=== PATIENT | female | born 1975 | race Caucasian/White ===

== ENCOUNTER 2016-08-26 12:57 | Inpatient (IN) | payer OTHER ==
[2016-08-26] VITALS (9 sets, daily range): BP systolic 105–137; BP diastolic 73–98; PULSE 70–118; RESP 18–23; O2SAT 98–100
[~2016-08-26] VITALS: Ht 170.2 cm; Wt 61.4 kg
[~2016-08-26 12:57] MED LIST: Succinylcholine Chloride 20 mg/mL 5 mL Inj ONE
--- NOTE | 2016-08-26 12:58 | ED.REPORT ---
HPI-Altered Mental Status Date of Service Aug 26, 2016 ED Provider: Dr. Moncada The patient is a 41 year old female with an unknown medical history who was brought to the emergency department by EMS. The patient was picked up by a taxi and the straddle truck driver became concerned that she was not responding. The local company intermodal truck driver pulled up to the police station who called EMS. Medics pulled the patient out of the car and placed her on the gurney. They administered 0.5 Narcan with no change. She had minimal responses to deep painful stimuli. She maintained her airway en route to the emergency department. She has a hospital band on her wrist from [place]. Nursing Notes Stated Complaint: DECREASED LOC Nursing Notes Reviewed: Yes General Time Seen by MD: 12:58 Chief Complaint Unresponsive Hx Obtained From: EMS Unable to Obtain Hx: Patient condition Arrived By: Ambulance Sudden in Onset?: Yes Onset Occurred: Just prior to arrival Symptom Duration: Since onset Progression since Onset: Constant Risk Factors Tory Coma Score > Age 5 Eye Opening: Open to pain (2) Verbal Response: No response (1) Motor Response: No response (1) Tory Coma Score: 4 Past Medical History Unable to Obtain History Past medical history, Past surgical history, Family history, Smoking history, Social history, Occupation, Ambulatory status Review of Systems Unable to Obtain ROS Patient condition Physical Exam Initial Vital Signs Vital Signs (First) Date Time Temp Pulse Resp B/P Pulse Ox O2 Delivery O2 Flow Rate FiO2 08/26/16 13:10 36.6 103 20 121/86 98 Simple Mask Non-Rebreather 08/26/16 13:53 Initial VS: Reviewed ENT: Mucous membranes moist, Conjunctiva normal, No scleral icterus Abdomen / GI: Soft, No distention Lymphatic: No lymphadenopathy Extremities: Vascular intact, Neuro intact, No swelling, No tenderness Skin: Warm, Dry, No cyanosis Psychiatric: Mood/affect normal, Behavior normal, Normal thought content Alertness: Positive: Unresponsive Smells of alcohol. When I am moving her head around she will open her eyes but does not respond. Head / Eyes: Atraumatic, Normocephalic, PERRL, EOMI, No scleral icterus Neck: Atraumatic, Supple, No meningismus, Full range of motion, No swelling, Non-tender, No midline vertebral tend, No masses, No carotid bruit, Thyroid NL Respiratory / Chest: Breath sounds NL, Breath sounds = bilat, No respiratory distress, No rales, No rhonchi, No wheezing Cardiovascular: Heart rate NL, Regular rhythm, Heart sounds NL, No gallop, No murmurs, No rubs, Peripheral circulation NL Mental Status: Positive: Unresponsive GCS: 4 Interpretation & Diagnostics Interpretation & Diagnostics: Urine drug screen: negative Urine : negative Lab Results Interpretation Result Diagram: 08/26/16 1342 Test 08/26/16 13:42 White Blood Count 5.6th/mm3 (3.8-10.1) Red Blood Count 4.45mil/mm3 (3.90-5.20) Hemoglobin 13.4g/dL (12.0-15.6) Hematocrit 38.9% (35.0-46.0) Mean Corpuscular Volume 87.4fL (81-100) Mean Corpuscular Hemoglobin 30.1pg (27.0-35.0) Mean Corpuscular Hemoglobin Concent 34.4% (32.0-37.0) Red Cell Distribution Width 14.6% (12.3-15.4) Platelet Count 142bil/L (150-400) Alcohol, Quantitative 513mg/dL (0-10) ECG Interpretation ECG Interpretation: Sinus tachycardia with a rate of 100 Time: 14:03 Interpreted by: ED physician X-Ray Chest Interpretation Chest Xray Interpretation: IMPRESSION: Endotracheal tube as above. Repositioning is recommended if clinically indicated. Dictated by: Misty Harris M.D. on 08/26/2016 at 14:12 View: Portable, 1 view Interpretation / Wet Read by: Interpret - Radiologist Procedures Intubation Time: 13:05 Procedure Performed by: ED physician Consent / Setup / Site Prep: No consent - emergent, Time-out performed, Oxygen administered, Pulse oximeter applied, lunchroom monitor applied, Hand hygiene observed, Stand sterile technique Patient Position: Sniff position, Head extended Blade / ET Tube / Route: Darby scope, ET tube cuffed, Route: oral Procedural Sedation/Analgesia: Sedation: Etomidate (20 mg) Neuromuscular Agent: Succinylcholine (100 mg) ET Confirmation: Direct visualization, BS equal, End tidal CO2 device, CXR, Rising O2 sat Secured / Marked: ET tube device Complications: None Post-Procedure: Condition improved, Tolerated procedure well, Patient stable Re-Eval/Medical Decision Source of Hx: EMS Re-Evaluation/Progress : Time of Eval: 13:40 Re-Evaluation/Progress Note: The patient is stable. Consultation : Referral / Consult Name: Mason Kessler MD Consulted With: Hospitalist Call Returned at: 14:16 Protective Signal Repairer: Will see patient, Agrees with eval, Agrees with plan, Accepts admit Counseled Regarding: Diagnosis, Lab results, Need for admission Patient Discharge & Departure Impression: Primary Impression: Alcohol intoxication Complication of substance-induced condition: with unspecified complication Qualified Code: F10.129 - Alcohol abuse with intoxication, unspecified Additional Impressions: [place] coma scale total score 4 or 5 Depressed level of consciousness Disposition: ADMITTED TO HOSPITAL Discharge Condition All VS Reviewed: Yes Condition: Stable Crit Care Except Billable Proc Time Spent: 30-74 minutes Services Performed: Patient management by me, Time spent at bedside, Reviewing test results, Reviewing imaging, Discussing patient care, Documentation in record Scribe Attestation Portions of this note were transcribed by Aleah Arreaga. I, Dr. Moncada personally performed the history, physical exam and medical decision-making; I reviewed and confirmed the accuracy of the information in the transcribed note. Signed by: Connie Jordan, 08/26/2016 at 1425. Nicolas Moncada MD Aug 26, 2016 12:58 Aleah Arreaga Aug 26, 2016 13:07
[2016-08-26] MEDS ORDERED: 0.9% Sodium Chloride 1,000 ML IV ONE (13:24)
[2016-08-26 13:46] LABS: Mean Corpuscular Hemoglobin 30.1 pg (27.0-35.0); Mean Corpuscular Volume 87.4 fL (81-100)
--- NOTE | 2016-08-26 14:14 | DRSVH ---
PROCEDURE: X-RAY CHEST ONE VIEW, PORTABLE ([id number]) INDICATIONS: post intubation TECHNIQUE: One view of the chest was acquired. COMPARISON: None. FINDINGS: Surgical changes and devices: Endotracheal tube is present approximately 5.2 cm superior to the vinita a. Lungs and pleura: No pleural effusions or pneumothorax. Lungs are clear. Mediastinum: Mediastinal contours appear normal. Heart size is normal. Bones and chest wall: No suspicious bony lesions. Overlying soft tissues appear unremarkable. IMPRESSION: Endotracheal tube as above. Repositioning is recommended if clinically indicated. Dictated by: Misty Harris M.D. on 08/26/2016 at 14:12 Approved by: Misty Harris M.D. on 08/26/2016 at 14:12
[2016-08-26 14:16] LABS: INR 0.87 ratio
[2016-08-26] MEDS ORDERED: Multivitamin w/Vit K Inj 10 ML, Thiamine Inj 100 MG, Folic Acid Inj 1 MG, Magnesium Sul... IV ONE ×10 (14:16→20:45)
[2016-08-26] MEDS ORDERED: Glucose 40% Oral Gel 15 Gm Tube PO PRN (14:20)
[2016-08-26] MEDS ORDERED: Polyethylene Glycol (PEG) 17 Gm Powder PO PRN (14:20)
[2016-08-26] MEDS ORDERED: Ondansetron 2 mg/mL 2 mL Inj IVPUSH PRN (14:30)
[2016-08-26 14:43] LABS: APPEARANCE,URINE HAZY (CLEAR,HAZY); COLOR,URINE STRAW (YELLOW); OCCULT BLOOD,URINE SMALL (NEGATIVE); PH,URINE 5.5 (5.0-8.0); UROBILINOGEN,URINE NORMAL (NORMAL)
[2016-08-26] MEDS ORDERED: LORA1TAB PO (14:56)
[2016-08-26] MEDS ORDERED: Succinylcholine Chloride 20 mg/mL 5 mL Inj IVPUSH ONE (15:00)
[2016-08-26] MEDS ORDERED: Etomidate 2 mg/mL 20 mL Inj IV ONE (15:00)
--- NOTE | 2016-08-26 16:50 | PCM.HPMED ---
Subjective Date of Service Aug 26, 2016 Primary Provider: Admitting Physician: Primary Care Physician: Deborah Attending Physician: Chief Complaint: Unconscious found to have elevated ETOh levels HISTORY was OBTAINED FROM [facility] / [facility] NOTES History of present illness 41-year-old female became unconscious in a cab ride, police was called, EMS was called, GCS 8, smelled of alcohol and ativan bottles still have pills in them at bedside. In the ED, GCS 4, 70 kg, 121/86 afebrile, respiratory drive intact, not hypoxic , intubated for airway protection/OG placed, Ativan, Normal saline, Zofran, moving all extremities, soft restraints, U tox neg even for benzo, etoh elevated --Per [facility] notes -08/24/2016 12pm Dx - etoh intoxication, found in hotel surrounded by etoh multipel bottels by ever associated AMS, she reported 5 prior admissions for etoh treatments, noted to be anxious per ER doc assesssment AST 53 EtOH 400, NH 19 lipase 34 lactate 3.5. unremarkable CBC/CMP otherwise, neg benzo on tox screen, discharged after obtunded state resolved in the ER w/ ativan taper s/p NS and thaimine-- Social - current smoker/EtOH Review of Systems - FAMILY HX SOCIAL HX MEDICATIONS Past Medical/Surgical HX-- Unable to obtain because of altered mental status Allergies Coded Allergies: No Allergy Information Available (Unverified Allergy, Unknown, 08/26/16) Exam Vital Signs Vital Sign - Last Date Time Temp Pulse Resp B/P Pulse Ox O2 Delivery O2 Flow Rate FiO2 08/26/16 14:37 109 23 136/98 98 Mechanical Ventilator 08/26/16 13:53 08/26/16 13:10 36.6 Lab and Diagnostics Labs Exam on admission intubated does not follow commands NC/AT no icterus no injected eyes EOMI PERRL Supple neck CTAB equal chest rise / no accessory muscle use RRR S1 S2 / no mrg / 2+ radial pulses Soft nt nd + BS no hepatosplenomegaly No edema no cyanosis no ecchymosis of lower extremities no jaundice ZAIDI prior abdominoplasty scar reed > 1L clear yellow OG minimal bloody dark output < 400cc total EKG Sinus tach 100 EtOH 513 CBC normal UA pending LFTPending INR pending chem panel pending Salicylate/Tylenol normal Imaging Chest x-ray PROCEDURE: X-RAY CHEST ONE VIEW, PORTABLE ([id number]) INDICATIONS: post intubation TECHNIQUE: One view of the chest was acquired. COMPARISON: None. FINDINGS: Surgical changes and devices: Endotracheal tube is present approximately 5.2 cm superior to the rosa. Lungs and pleura: No pleural effusions or pneumothorax. Lungs are clear. Mediastinum: Mediastinal contours appear normal. Heart size is normal. Bones and chest wall: No suspicious bony lesions. Overlying soft tissues appear unremarkable. IMPRESSION: Endotracheal tube as above. Repositioning is recommended if clinically indicated. Result Diagram: 08/26/16 1342 Assessment & Plan Active issues and reason for admission Altered mental status/obtunded/encephalopathy due to alcohol -- Banana bag 2 L, IV fluid, sedation with Ativan/diazepam, pain control with fentanyl, remain intubated until able to follow commands -- troponin neg x2 --TSH/UA/B12 pending -- Monitor for DTs/seizure in the ICU --pending labs, anticipate AST to be elevated as 2 days ago at [place] Chronic issues known prior to admission, present on admission Unknown abdominoplasty scar prior EtOH inpatient admission Diet Nothing by mouth DVT prophylaxis lovenox scd Code Full Disposition inpatient Mason Kessler MD Aug 26, 2016 14:42
[2016-08-26] MEDS: Chlorhexidine 0.12% 15 mL Oral Solution MT SCH ×3 (18:23→23:13)
[2016-08-26] MEDS ORDERED: 0.9% Sodium Chloride 250 ML ONE (18:28)
[2016-08-26] MEDS: Midazolam Inj 100 MG in IV Premix 1 EACH IV SCH (18:52)
--- NOTE | 2016-08-26 19:18 | NUR ---
Admit to CCU Pt admitted to CCU at aprox 1730, intubated. Pt bucking vent, CLOTH WEIGHER gave 1mg IVP ativan. This RN obtained order for versed gtt, started at 2mg/hr, pt RASS -3 at this time. See assessment for vent settings. Pt on menses, gina pad applied. Hector draining clear yellow/ulises urine to gravity. OGT to low continuous suction, brown output. Second IV placed in L FA.
[2016-08-26] MEDS: Famotidine Inj 50 ML IV SCH (20:45)
[2016-08-26] MEDS: fentaNYL-PF 50 mCg/mL 2 mL Inj IVPUSH PRN (23:26)
[2016-08-27] VITALS (13 sets, daily range): BP systolic 117–130; BP diastolic 78–95; PULSE 89–99; RESP 11–18; O2SAT 92–100
[2016-08-27] MEDS: fentaNYL-PF 50 mCg/mL 2 mL Inj IVPUSH PRN (01:25)
[2016-08-27] MEDS: D5 0.45% NaCl + KCl 20 mEq/L 1,000 ML IV SCH ×3 (01:27→22:40)
[2016-08-27 02:09] LABS: Free Thyroxine Index 1.7 (1.2-4.9); Thyroxine (T4) 5.7 ug/dL (4.5-12.0)
[2016-08-27 03:07] LABS: Mean Corpuscular Hemoglobin 29.8 pg (27.0-35.0); Mean Corpuscular Volume 86.8 fL (81-100)
[2016-08-27 03:32] LABS: TROPONIN T 0.01 ug/L (0.0-0.011)
[2016-08-27] MEDS: fentaNYL 2,500 mCg/250 mL IV Premix IV SCH (03:42)
[2016-08-27 03:44] LABS: Magnesium 2.6 mg/dL (1.6-2.6)
[2016-08-27] MEDS: Chlorhexidine 0.12% 15 mL Oral Solution MT SCH ×5 (04:14→20:31)
[2016-08-27] MEDS: Midazolam Inj 100 MG in IV Premix 1 EACH IV SCH (04:40)
--- NOTE | 2016-08-27 04:50 | NUR ---
[facility] Patient restless, requiring Versed gtt to be titrated up to 7mg/hr. Patient continues to attempt to sit up, pulls on restraints, and reaches towards tube on this high level of medication. Patient able to squeeze hands on command, does not follow instructions for nodding yes and no. Patient is diaphoretic and tachycardic. Unable to tell if patient is having any sort of hallucinations, nausea, or headache. Fentanyl pushes are administered and ineffective for patient's discomfort. Fentanyl gtt started. 5 mg IV Valium administered. Patient has intermittent rest periods. Patient febrile. MD notified and orders received for blood cultures. No further orders. Continue to monitor. Addendum: 08/27/16 at 0617 by DOMI BANKS RN Patient requiring additional Valium doses on top on Fentanyl and Versed gtts. MD aware. New orders received .
--- NOTE | 2016-08-27 05:55 | ABG ---
DateTimeAnalyzed 05:45:46 -_ pH ____7.534 - pCO2 ___22.4__ -mmHg pO2 ___97.7__ -mmHg HCO3- ___18.8__ -mmol/L ABE ___-3.2__ -mmol/L tHb ___11.3__ -g/dL O2Hb ___97.5__ -% COHb ____0.9__ -% MetHb ____0.4__ -% sO2 ___98.8__ -% FIO2 ___21.0__ -% PRVC 481 - PEEP ____5.0__ -cmH2O Set_RR 18 -b/min Drawn By CF - Date/Time Notified____ 05:54:00 -_ Spontaneous_RR 18 -b/min Oxygen Device 1 VENTILATOR - Notified Whom Tamie K, RN - B 742 -mmHg K+ ____4.0__ -mmol/L tO2 ___15.6__ -Vol% Justino test _Positive -
[2016-08-27] MEDS: Famotidine Inj 50 ML IV SCH ×2 (08:01→20:31)
[2016-08-27] MEDS: Thiamine Inj 100 MG in 0.9% Sodium Chloride 100 ML IV SCH (08:02)
[2016-08-27] MEDS: LORazepam 100 mg/100 mL NS 100 MG in IV Premix 100 EACH IV SCH (08:18)
--- NOTE | 2016-08-27 10:18 | NUR ---
NUTRITION ASSESSMENT: ASSESS:41 YO female who became unconscious in a cab due to alcohol intoxication was intubated in the ED for airway protection and admitted to CCU for vent management. Gastric output brown in color, 450 ml today. Pt. is febrile this morning, awake and agitated; however, it is unlikely she will be extubated today due to possible increasing alcohol withdrawal. CIWA protocol in effect. PMHx:ETOH, smoking. DIET:NPO. LABS: Reviewed. Cr 0.51, Ca 7.8, Alb 3.8. MEDICATIONS: Reviewed. Ativan, fentanyl, valium, thiamine, MVI. NUTRITION FOCUSED PHYSICAL ASSESSMENT: GI symptoms / stool: No stool reported.Ryan: No score at this time. Skin Integrity: No issues reported. ANTHROPOMETRICS: Current Wt: 70.0 kgBMI: 24.0 kg/m2. IBW: 61.4 kg (114.1% IBW) ESTIMATED NEEDS (CCU / VENT): Calories: 1400 - 1750 kcal (20 - 25 kcal / kg BW Protein: 105 - 126 g protein (1.5 - 1.8 g / kg BW) Fluid: Approx. 2100 - 2450 ml (30 - 35 mL / kg BW) NUTRITION DIAGNOSIS: 1)Inadequate oral intake related to inability to consume sufficient energy, as evidenced by NPO / vent status. INTERVENTION: 1) In the event patient unable to be extubated over weekend, recommend initiate enteral feeding as follows: Jevity 1.5 at 35 ml/hr. Once tolerance established, recommend advance 10 ml every 4 hr. to goal rate rate 50 ml/hr. Flush dose 40 ml H2O every 4 hr. In addition, recommend add 1 packet Pro[employer] liquid protein four times per day. Enteral feeding at goal would provide 1650 kcal, 114 g protein (70 formula + 44 ProSource), sufficient to meet 100% nutrient needs. 2) In the event propofol initiated, will adjust goal rate daily based on propofol rate. MONITOR/EVALUATE: NPO / vent status, labs, GI/nutrition status. Follow up per high nutrition risk guidelines.
--- NOTE | 2016-08-27 11:01 | DRSVH ---
PROCEDURE: X-RAY CHEST ONE VIEW, PORTABLE ([id number]) INDICATIONS: DECREASED LS ON RIGHT, INCREASED O2 REQUIREMENTS TECHNIQUE: One view of the chest was acquired. COMPARISON: [facility], CR, XR CHEST 1VW (PORTABLE), 08/26/2016, 13:17. FINDINGS: Surgical changes and devices: Endotracheal tube is unchanged with distal tip approximately 6.2 cm sup erior to the rosa. Nasogastric tube is present with distal tip projecting below the left hemidiaphr agm. Lungs and pleura: No pleural effusions or pneumothorax. Lungs are clear. Mediastinum: Mediastinal contours appear normal. Heart size is normal. Bones and chest wall: No suspicious bony lesions. Overlying soft tissues appear unremarkable. IMPRESSION: Support lines as above. Lungs are clear. Dictated by: Misty Harris M.D. on 08/27/2016 at 10:59 Approved by: Misty Harris M.D. on 08/27/2016 at 10:59
--- NOTE | 2016-08-27 16:19 | NUR ---
Social Work: Note D&A: ASSISTANT FARM OPERATIONS MANAGER reviewed EMR, which state spt presented to [facility] ED via ambulance after being found unconscious in a cab with apparent ETOH intoxication. Pt collins hx of multiple hospital admission for ETOH withdrawal. Per current RN notes, "Patient continues to attempt to sit up, pulls on restraints, and reaches towards tube on this high level of medication." Pt's primary insurance is [employer]; PCP is not listed. Per pt's family, pt has pursued CD tx multiple times, format unknown. Pt's father, Keaton requests audience with ASSISTANT FARM OPERATIONS MANAGER, per RN; ASSISTANT FARM OPERATIONS MANAGER attempted phone call ([phone]) and left a voicemail. P: ASSISTANT FARM OPERATIONS MANAGER to follow pt for complete CD assessment, when appropriate. ELENO Meadows
--- NOTE | 2016-08-27 16:49 | ABG ---
DateTimeAnalyzed 16:43:00 -_ pH ____7.470 - 7.350 7.450 pCO2 ___30.8__ -mmHg 35.0 45.0 pO2 135 -mmHg 69.0 116 HCO3- ___22.1__ -mmol/L 22.0 26.0 ABE ___-0.5__ -mmol/L -2.0 2.0 tHb ___10.9__ -g/dL O2Hb ___96.7__ -% COHb ____1.2__ -% MetHb ____1.1__ -% sO2 ___99.0__ -% FIO2 ___40.0__ -% PEEP ____5.0__ -cmH2O Set_RR ___14.0__ -b/min Vt __480.0__ -L Drawn By BTL - Date/Time Notified____ 16:49:00 -_ Spontaneous_RR ___14.0__ -b/min Oxygen Device 1 VENTILATOR - Notified By BTL - Notified Whom ___Dr. Tony Mendoza - B 742 -mmHg tO2 ___15.0__ -Vol% Justino test N/A -
--- NOTE | 2016-08-27 16:56 | PCM.CHPMED ---
Subjective Date of Service: Aug 27, 2016 Provider requesting consult: Justino Harrison MD Primary Physician: Admitting Physician: Mason Kessler MD Primary Care Physician: Deborah Attending Physician: Mason Kessler MD Chief Complaint: Chief Complaint: Unresponsive History of Present Illness: ICU/pulmonary consult note 41-year-old female with unknown medical history with recent stay at [facility] and reported multiple and numerous attempt at rehabilitation due to alcohol was brought to schedule a hospital ED by EMS due to being unresponsive in the back of a taxicab. He pulled up to a police station after patient was unresponsive and called EMS. Medics arrived some unknown time later. Does not appear that CPR was ever needed as patient was breathing and had a pulse. Patient apparently smelled strongly of alcohol and there were lorazepam pills in the back seat. EMS administered 0.5 mg of Narcan with no change. Patient was minimally responsive for EMS with minimal responses to deep pain stimulation. Patient arrived to [facility] ED still wearing a [facility] identification wrist band. EKG on arrival showed sinus tachycardia with rate of 100. Patient was intubated and chest x-ray confirmed the placement of the endotracheal tube. On admit the patient's blood alcohol level was 513, with a negative acetaminophen and salicylate levels. White count on arrival was 5.6 but that is since increased 12.7, hemoglobin has decreased from 13.4-11.5, and platelet count is somewhat stable at 101. Other labs are stable. Patient was in thiamine. Currently has been sedated on lorazepam and fentanyl as Versed drip and diazepam pushes were not working. This morning the patient is lightly sedated and responds to touch. Questionable fever overnight only 37.7. Blood pressure is stable and she is 99 % saturation with FiO2 of 0.4. He was related that the patient has been trying to commit suicide which led to her recent stay in [facility]. PMH Past Medical History Unable to confirm due to sedation Other History Unable to confirm due to sedation Bedside Blood Glucose: 127 Surgical History Unable to confirm due to sedation Home Medications Unable to confirm due to sedation Allergies: Coded Allergies: No Allergy Information Available (Unverified Allergy, Unknown, 08/26/16) Family History Family History Unable to confirm due to sedation Social History Smoking Status: Unknown if Ever Smoker Exam Vital Signs Vital Sign - Last Date Time Temp Pulse Resp B/P Pulse Ox O2 Delivery O2 Flow Rate FiO2 08/27/16 16:02 93 126/91 99 40 08/27/16 12:00 37.3 14 08/27/16 08:00 Mechanical Ventilator 08/26/16 13:53 Intake and Output 08/26/16 08/26/16 08/27/16 Cumulative From/Thru 15:00 23:00 07:00 08/26/16 13:10 - 08/27/16 06:10 Intake Total 1000 ml 1000 ml 2134 ml 4134 ml Output Total 500 ml 450 ml 950 ml Balance 1000 ml 500 ml 1684 ml 3184 ml Intake IV Total 1000 ml 1000 ml 2134 ml 4134 ml Output Urine Total 500 ml 500 ml Gastric Drainage Total 450 ml 450 ml Additional Information: General: Sedated and intubated HEENT: Right IJ in place, no JVD, supple Cardiovascular: Blood pressure appropriate; regular rate and rhythm no murmurs heard Abdomen: Soft and nondistended Extremities: No edema noted, intermittent movement Skin: No rashes Psych: Sedated Neuro: Pupils reactive patient fights to keep her eyes shut when I try to open them Lab and Diagnostics Result Diagram: 08/27/16 0245 08/27/16 0245 Assessment & Plan Assessment Assessment Ventilatory failure second suspected benzodiazepine and alcohol overdose History of alcohol abuse History of substance abuse History of multiple admits due to overdose, intentional Acute leukocytosis Neurological: Patient remains lightly stated on Ativan drip with fentanyl. She is arousable but noncommunicative. Pupils reactive. Patient has a history of alcoholism and she was given thiamine and she was admitted Cardiovascular: Patient stable on her current sedation with blood pressure being maintained appropriately and heart rate within normal range. Respiratory: Patient was intubated due to failure to protect airway and due to decrease respiratory drive second 2 suspected benzodiazepine and alcohol overdose. Tox screen was taken and was negative for benzodiazepines, however there is high suspicion the patient did mix alcohol with Ativan, and Ativan is known to not be tested on tox screens. At this time will continue to ventilate the patient. She was alkalotic this morning and respiratory rate was decreased. Repeat ABG is pending. Will reassess in the morning GI: Deferred to primary team Infection: At the moment it does not appear that the patient has an active infection. Today the white count doubled to 12.7. Chest x-ray does show bilateral pulmonary opacities could be concerning for pneumonia. Patient is currently not on antibiotics and we will cover for aspiration pneumonia. His mother patient was previously an [facility] and we will follow with a low threshold for starting MRSA coverage at this time we will start the patient on Zosyn only. Disposition: Patient is still sedated. There is no timetable for ventilatory weaning. Tomorrow we will attempt to wake the patient up she becomes alert we can try a spontaneous breathing trial. Time spent: 90 min Problems: Pain Evaluation: Adequate Pain Control VTE Mechanical Devices: Intermittant Pneumatic CD Resuscitation Status: CPR: Attempt Resuscitation Attending Statement The patient was seen and examined together with Dr. Mendoza on 08/27/2016 and I agree with the history, exam and plan as outlined in the note above. Tony Mendoza DO Aug 27, 2016 16:56 Gavin Holguin MD Sep 09, 2016 10:01
--- NOTE | 2016-08-27 16:58 | PCM.PNMED ---
Subjective Date of Service Aug 27, 2016 Subjective Ms. Pereira is a 41-year-old female who became unconscious in a cab ride and GCS was 8 who was admitted for alcohol withdrawal and possible suicide attempt with alcohol and Ativan. She has an endotracheal tube in place and is currently sedated. Exam Vital Signs Vital Sign - Last Date Time Temp Pulse Resp B/P Pulse Ox O2 Delivery O2 Flow Rate FiO2 08/27/16 12:00 37.3 97 14 117/91 98 08/27/16 11:57 40 08/27/16 08:00 Mechanical Ventilator 08/26/16 13:53 Intake and Output 08/26/16 08/26/16 08/27/16 Cumulative From/Thru 15:00 23:00 07:00 08/26/16 13:10 - 08/27/16 06:10 Intake Total 1000 ml 1000 ml 2134 ml 4134 ml Output Total 500 ml 450 ml 950 ml Balance 1000 ml 500 ml 1684 ml 3184 ml Intake IV Total 1000 ml 1000 ml 2134 ml 4134 ml Output Urine Total 500 ml 500 ml Gastric Drainage Total 450 ml 450 ml Exam General: Intubated and sedated. HEENT: Normocephalic, atraumatic. External ears without defect. Neck: Supple. No lymphadenopathy or thyromegaly. Cardiovascular: Regular rate and rhythm with no murmurs, rubs, or gallops appreciated Pulmonary: Clear to auscultation bilaterally with no crackles, wheezes, or rhonchi. Abdomen: Bowel tones present. Soft, nondistended. No hepatosplenomegaly or masses appreciated. Extremities: No clubbing, cyanosis, edema, or lymphadenopathy appreciated. Skin: Normal temperature, turgor, and texture; no rash, ulcers, or subcutaneous nodules appreciated. Neurological: Unable to fully access Psychiatric: Normal mood and affect. Alert and oriented to person, place, and time. IVs and Medications Medications Reviewed: Medications were reviewed in detail Lab and Diagnostics Result Diagram: 08/27/1624408/27/16244 X-Rays, CTs and MRIs PROCEDURE: X-RAY CHEST ONE VIEW, PORTABLE IMPRESSION: Support lines as above. Lungs are clear. Approved by: Misty Harris M.D. on 08/27/2016 at 10:59 12-lead ECG Normal sinus rhythm. No QTc prolongation. Assessment & Plan Ms. Pereira is a 41-year-old female became unconscious in a cab ride and GCS was 8 who was admitted for alcohol withdrawal and possible suicide attempt with alcohol and Ativan. 1. Altered mental status, obtunded, present on admission. Active. -Likely encephalopathy due to alcohol intoxication -Normal saline 2 L, IV fluid, sedation with Ativan/diazepam, pain control with fentanyl, and she remains intubated unable to follow commands -Troponin negative x2 -TSH, UA, and vitamin B12 within normal limits -AST, ALT and ammonia within normal limits -Urine tox screen and urine test in the emergency department were both negative -Monitor for DTs/seizure 2. Alcohol withdrawal, acute, present on admission. Active. -Pt has history of multiple admissions for alcohol withdrawal and failed rehabilitation for alcohol dependence -Initial blood alcohol level 513 -[facility] protocol -Thiamine IV replenishment 3. Acute ventilatory failure secondary to intoxication causing inadequate ventilation, present on admission. Active. -Pt intubated for airway protection with IV fentanyl and lorazepam for sedation and pain control. -Pulmonology consulted and following. Their time and recommendations are appreciated. -Extubation as alcohol intoxication improves 4. Probable aspiration pneumonia, acute, present on admission. Active. -Patient was febrile this morning at 38.8 degrees C and has an elevated WBC 12.7 -CXR shows likely infiltrate -Started on IV Zosyn -Continue to monitor CBC and temperature 5. Possible suicide attempt -A bottle of Ativan was found at her bedside -Will obtain more history and gather information in the future when patient becomes more alert and awake Chronic issues known prior to admission, present on admission abdominoplasty scar prior EtOH inpatient admission Diet: Nothing by mouth DVT prophylaxis: lovenox scd Code Full Disposition inpatient ABG: pH 7.534, pCO2 22.4, pO2 97.7, HCO3 18.8 I/Os: 2000mL -500 mL Drips: famotidine, fentanyl, lorazepam, thiamine, sodium chloride VTE Prophylaxis: Sub-Q Enoxaparin VTE Mechanical Devices: Intermittant Pneumatic CD Time spent 45 min Attending Statement Patient seen and examined with house staff. Agree with all attached documentation. So Jung DO Aug 27, 2016 14:11 Justino Harrison MD Aug 28, 2016 07:36
[2016-08-27] MEDS ORDERED: 0.9% Sodium Chloride 250 ML ONE (17:00)
--- NOTE | 2016-08-27 17:39 | NUR ---
Remains on vent support, sedated with Fentanyl and Ativan. Intermittent agitation, tremors improved when Ativan gtt started this morning, currently at 2mg/hr. Versed stopped. Vital signs improved. Vent changes per RT/ABG results noted. CXR done this morning for desats/increased 02 needs, decreased breaths sounds on right/MD aware; resolved. Family here this morning, deeply concerned that she might be suicidal due to her high alcohol level and escalating return to using alcohol everytime she gets out of rehab, which they stated has been multiple times now. They are requesting a mental health eval and assistance from social services analyst for a plan prior to discharge and stated several times "we just don't know how to help her". financial services representative updated/aware. Appears comfortable at this time.
[2016-08-27] MEDS: Piperacillin-Tazo 3.375 Gm Inj 3.375 GM in Dextrose 5% Minibag Plus 50 ML IV SCH (17:49)
[2016-08-28] VITALS (11 sets, daily range): BP systolic 108–125; BP diastolic 73–88; PULSE 90–107; RESP 11–13; O2SAT 93–100
[2016-08-28] MEDS: Chlorhexidine 0.12% 15 mL Oral Solution MT SCH ×7 (00:25→23:58)
[2016-08-28] MEDS: Piperacillin-Tazo 3.375 Gm Inj 3.375 GM in Dextrose 5% Minibag Plus 50 ML IV SCH ×4 (00:25→23:57)
[2016-08-28 03:23] LABS: BASOPHILS % (AUTO) 0.1 % (0-3); EOSINOPHILS % (AUTO) 0.4 % (0-5); MONOCYTES % (AUTO) 3.2 % (4-12); Mean Corpuscular Hemoglobin 29.9 pg (27.0-35.0); Mean Corpuscular Volume 89.3 fL (81-100); NEUTROPHILS % (AUTO) 88.8 % (40-74); Platelet Count 84 bil/L (150-400)
[2016-08-28] MEDS: LORazepam 100 mg/100 mL NS 100 MG in IV Premix 100 EACH IV SCH (03:48)
[2016-08-28] MEDS: fentaNYL 2,500 mCg/250 mL IV Premix IV SCH (03:48)
[2016-08-28] MEDS: D5 0.45% NaCl + KCl 20 mEq/L 1,000 ML IV SCH (04:53)
--- NOTE | 2016-08-28 06:40 | NUR ---
Sedation Patient remains on 2mg/hr of Ativan and 50mcgs/hr of Fentanyl. No changes made. RASS -2, easily rouses and is very tremulous when awake. Calms quickly, falling asleep again once care activities are complete. Does not follow commands. Restraints in place for patient safety.
--- NOTE | 2016-08-28 08:01 | PCM.PNMED ---
Subjective Date of Service Aug 28, 2016 Subjective Patient is intubated and sedated. ROS and subjective not obtainable Exam Vital Signs Vital Sign - Last Date Time Temp Pulse Resp B/P Pulse Ox O2 Delivery O2 Flow Rate FiO2 08/28/16 07:29 101 111/81 96 35 08/28/16 03:17 38.2 12 Mechanical Ventilator 08/26/16 13:53 Intake and Output 08/27/16 08/27/16 08/28/16 Cumulative From/Thru 15:00 23:00 07:00 08/26/16 13:10 - 08/28/16 06:32 Intake Total 1168 ml 1291 ml 6593 ml Output Total 550 ml 950 ml 2450 ml Balance 618 ml 341 ml 4143 ml Intake IV Total 1168 ml 1291 ml 6593 ml Output Urine Total 550 ml 900 ml 1950 ml Gastric Drainage Total 50 ml 500 ml # Bowel Movements 0 0 Exam Intubated and sedated. Frontal skull Anicteric sclera. Neck supple. Lungs are clear, she is overbreathing the ventilator 24/05. Heart is regular without murmur. Abdomen is soft nondistended Extremities are free of edema with good pedal and radial pulses. Skin is free of rash or lesions. No jaundice. IVs and Medications Medications Reviewed: Medications were reviewed in detail Lab and Diagnostics Result Diagram: 08/28/16 0305 08/28/16 0305 X-Rays, CTs and MRIs PROCEDURE: X-RAY CHEST ONE VIEW, PORTABLE IMPRESSION: Support lines as above. Lungs are clear. Approved by: Misty Harris M.D. on 08/27/2016 at 10:59 12-lead ECG Normal sinus rhythm. No QTc prolongation. Assessment & Plan Ms. Pereira is a 41-year-old female became unconscious in a cab ride and GCS was 8 who was admitted for alcohol withdrawal and possible suicide attempt with alcohol and Ativan. 1. Acute Alcohol withdrawal, acute, present on admission. Active. The patient remains intubated and on Ativan drip at 2 per hour. We will wean the drip today and see how she does. Intravenous move towards extubation. The C1 is inactive as she is on the Ativan drip. 2. Acute hypercarbic respiratory failure and intubation for airway protection. The patient currently continues to be intubated and ventilated. She is overbreathing the ventilator and on FiO2 of 40 with PEEP of 5. We will move to lighten sedation and do a breathing trial this morning. Hope to extubate. 3. Probable aspiration pneumonia, acute, present on admission. Active. Continue Zosyn, repeat chest x-ray today. 5. Possible suicide attempt -A bottle of Ativan was found at her bedside -Will obtain more history and gather information in the future when patient becomes more alert and awake 6. Persistent fevers, and one positive blood culture for gram-positive cocci. Continue Zosyn for possible aspiration, add vancomycin pending other cultures, and use IV Tylenol. Chronic issues known prior to admission, present on admission abdominoplasty scar prior EtOH inpatient admission Diet: Nothing by mouth DVT prophylaxis: lovenox scd Code Full Disposition inpatient ABG: pH 7.534, pCO2 22.4, pO2 97.7, HCO3 18.8 I/Os: 2000mL -500 mL Drips: famotidine, fentanyl, lorazepam, thiamine, sodium chloride VTE Prophylaxis: Sub-Q Enoxaparin VTE Mechanical Devices: Intermittant Pneumatic CD Resuscitation Status: CPR: Attempt Resuscitation Time spent 30 minute Justino Harrison MD Aug 28, 2016 08:01
[2016-08-28] MEDS: Famotidine Inj 50 ML IV SCH ×2 (08:36→20:04)
[2016-08-28] MEDS: Thiamine Inj 100 MG in 0.9% Sodium Chloride 100 ML IV SCH (08:36)
[2016-08-28] MEDS: Dextrose 5% 0.9% NaCl 1,000 ML IV SCH (10:53)
[2016-08-28] MEDS: Vancomycin Dose per Pharmacist XX SCH (12:25)
[2016-08-28] MEDS: Acetaminophen IV 1,000 MG in IV Premix 1 EACH IV PRN (12:49)
--- NOTE | 2016-08-28 13:06 | PCM.PHAPRO ---
Progress Date of Service: Aug 28, 2016 Requesting Provider: Justino Harrison MD to cover 1 positive blood culture for GPC trough 15-20 vancomycin 1 gram q8h ( on a ) vanco trough 1300 08/29 Rigoberto Cardenas [facility] Aug 28, 2016 13:06
[2016-08-28] MEDS: Vancomycin Inj 1,000 MG in IV Premix 1 EACH IV SCH ×2 (14:03→21:36)
--- NOTE | 2016-08-28 15:14 | DRSVH ---
PROCEDURE: X-RAY CHEST ONE VIEW, PORTABLE ([id number]) INDICATIONS: intubated TECHNIQUE: One view of the chest was acquired. COMPARISON: [facility], CR, XR CHEST 1VW (PORTABLE), 08/28/2016, 7:54. [facility], CR, XR CHEST 1VW (PORTABLE), 08/27/2016, 10:32. FINDINGS: Surgical changes and devices: Endotracheal tube is 5.5 cm above rosa. The nasogastric tube tip is i n the stomach. Lungs and pleura: Right infrahilar opacity may be infiltrate or atelectasis. No pleural effusions or pneumothorax. Mediastinum: Mediastinal contours appear normal. Heart size is normal. Bones and chest wall: No suspicious bony lesions. Overlying soft tissues appear unremarkable. IMPRESSION: Right infrahilar infiltrate or atelectasis. Dictated by: Christi Coyne M.D. on 08/28/2016 at 9:40 Approved by: Christi Coyne M.D. on 08/28/2016 at 9:42
--- NOTE | 2016-08-28 15:14 | DRSVH ---
PROCEDURE: X-RAY CHEST ONE VIEW, PORTABLE ([id number]) INDICATIONS: dyspnea TECHNIQUE: One view of the chest was acquired. COMPARISON: [facility], CR, XR CHEST 1VW (PORTABLE), 08/27/2016, 10:32. [facility], CR, XR CHEST 1VW (PORTABLE), 08/28/2016, 4:54. FINDINGS: Surgical changes and devices: Endotracheal tube is 5.5 cm above rosa. There is a nasogastric tube w ithin the stomach. Lungs and pleura: Right infrahilar infiltrates or atelectasis. No pleural effusions or pneumothorax. Mediastinum: Mediastinal contours appear normal. Heart size is normal. Bones and chest wall: No suspicious bony lesions. Overlying soft tissues appear unremarkable. Mild gaseous distention of colon. IMPRESSION: Right infrahilar atelectasis versus pneumonia appears unchanged. Dictated by: Christi Coyne M.D. on 08/28/2016 at 9:46 Approved by: Christi Coyne M.D. on 08/28/2016 at 9:48
--- NOTE | 2016-08-28 15:16 | ABG ---
DateTimeAnalyzed 06:18:00 -_ pH ____7.430 - 7.350 7.450 pCO2 ___32.2__ -mmHg 35.0 45.0 pO2 ___88.4__ -mmHg 69.0 116 HCO3- ___21.0__ -mmol/L 22.0 26.0 ABE ___-2.2__ -mmol/L -2.0 2.0 tHb ___11.2__ -g/dL O2Hb ___95.0__ -% COHb ____1.0__ -% MetHb ____1.1__ -% sO2 ___97.0__ -% FIO2 ___35.0__ -% PRVC 531 - PEEP ____5.0__ -cmH2O Set_RR ___11.0__ -b/min Vt __480.0__ -L Drawn By RB - Date/Time Notified____ 06:24:00 -_ Spontaneous_RR ___11.0__ -b/min Oxygen Device 1 VENTILATOR - Notified Whom Tamie K, RN - B 742 -mmHg tO2 ___15.0__ -Vol% Justino test _Positive -
--- NOTE | 2016-08-28 16:14 | PROG NOTE ---
[address] [address] PROGRESS NOTE PATIENT: AMELIE SINGH : 1975 MR#: [id number] ADMIT: 08/26/2016 JOB ID: [id number] DATE: 08/28/2016 PULMONARY CRITICAL CARE FOLLOWUP NOTE: PROBLEMS: 1. Alcohol intoxication. 2. Acute hypercarbic respiratory failure secondary to alcohol and possibly benzodiazepine overdose. 3. History of substance abuse. 4. Multiple admissions for intentional overdose. SUBJECTIVE: None. The patient apparently intubated for markedly depressed the respiratory status. OBJECTIVE: Temperature of 38, with T max being 38.4. Pulse low 100s. Respiratory rate 12 on a ventilator set at 11. Blood pressure 115/85, O2 sat on FiO2 35%, PEEP of 5, is 96%. I and O shows 2 L in, 0.5 L out. General appearance: Minimally arousable. She gets quite agitated and tremulous with any significant interventions. Chest: Fair breath sounds. Moderately diminished breath sounds diffusely. Lung carrillo clear though other examiners who have seen her before think the breath sounds are somewhat more diminished at the right base than they have been. Ventilatory mechanics show a peak inspiratory pressure of 18 with a plateau of 16, with a tidal volume of 480. PEEP is set at 5, measured at 5. Respiratory rate is set at 11, currently breathing 17. Heart: Heart tones seem normal. Abdomen soft. Nondistended. Liver and spleen not palpable. No apparent tenderness though the patient sedated. Extremities: No clubbing, cyanosis, nor pretibial edema. Blood cultures, one out of two positive for alpha hemolytic colonies, awaiting identification. The patient currently on Zosyn for probable aspiration pneumonitis. Chest x-ray from yesterday shows clear lungs. Patient with somewhat fetid smell. LABORATORY DATA: Shows a white count of 13,900, with 88 polymorphonuclears, no bands, 7 lymphocytes, 3 monocytes. Hemoglobin 11.7 and stable over 24 hours after a 2 g/dL drop from admission. Platelet count dropping, currently 84,000; was 142,000, 36 hours ago. Sodium 134 and decreasing. Potassium 4.2, chloride 100, CO2 is 20, BUN 11, creatinine 0.5, glucose 118. Calcium is 8.4 with albumin 3.5. Total bilirubin, alkaline phos, and transaminases are all normal. Procalcitonin is 0.7, upper limits of normal being 0.08. ASSESSMENT: 1. Acute alcohol intoxication, possible benzodiazepine overdose. The patient seems to be in withdrawal. Is tremulous. Receiving benzodiazepines to cover alcohol withdrawal. Receiving thiamine 100 mg daily. May want to increase that a bit. 2. Hyponatremia. Patient's sodium is decreasing. Probable function of underlying syndrome of inappropriate secretion of hormone as well as free water administration. Will change intravenous fluids. 3. Chronic alcohol use. Need to watch magnesium and potassium assiduously. 4. Possible bacteremia. The patient currently on Zosyn. Should cover aspiration pneumonitis and alpha hemolytic organism. Awaiting ID. 5. Fetid smell. Wonder about sinuses and hypopharynx. Will get some cultures for both bacterial culture, probably bacterial. Doubt fungal but will check at the time. 6. Dropping platelet count. Probable disseminated intravascular coagulation. This in the face of a damaged marrow from the alcohol. I do not know if there is any degree of sepsis also causing marrow suppression but doubt this is heparin-induced thrombocytopenia as it is early in the course. Not sure that she ever received heparin at [place] so that maybe a confounding factor. She is receiving enoxaparin. Probably acceptable though does carry a small risk of overlap with heparin-induced thrombocytopenia. Might consider low-dose fondaparinux. PLAN: 1. Chest x-ray today. 2. Nasopharyngeal swab for Gram stain, C and S and fungal smear and culture. 3. Change IV fluids from D5 half-normal plus K to D5 normal. 4. Increase thiamine to 2-300 mg, whatever the computer allows. 5. Continue Ativan drip. Time spent so far in critical care is 66 minutes.
--- NOTE | 2016-08-28 17:37 | NUR ---
Respiratory/agitation/mentation Pt's bases of lungs decreased, as well as increased amount of secretions throughout AM. Notified MD, sputum culture ordered and sent. Pt continues to have tmax of 38.7. IV tylenol ordered and given with good effect. Attempted to cut down sedation per MD request, turned ativan down, but pt woke up extremely agitated, very tremulous and diaphoretic. HR ST in the 120s. Notified MD and titrated sedation back up. See flow sheet for details. Frequent rounding, q2h turns, oral and skin care continue.
[2016-08-29] VITALS (13 sets, daily range): BP systolic 95–139; BP diastolic 63–101; PULSE 72–102; RESP 11–18; O2SAT 95–100
[2016-08-29] MEDS: Acetaminophen IV 1,000 MG in IV Premix 1 EACH IV PRN (00:03)
[2016-08-29 02:27] LABS: BASOPHILS % (AUTO) 0.2 % (0-3); EOSINOPHILS % (AUTO) 1.6 % (0-5); MONOCYTES % (AUTO) 4.1 % (4-12); Mean Corpuscular Hemoglobin 29.8 pg (27.0-35.0); Mean Corpuscular Volume 91.6 fL (81-100); NEUTROPHILS % (AUTO) 87.3 % (40-74)
[2016-08-29 02:46] LABS: INR 1.03 ratio
[2016-08-29 02:49] LABS: Platelet Count 41 bil/L (150-400)
[2016-08-29 02:54] LABS: D-DIMER 2.4 mg/L (<0.50)
[2016-08-29 03:09] LABS: Magnesium 1.6 mg/dL (1.6-2.6); Phosphorus 2.9 mg/dL (2.5-4.9)
[2016-08-29] MEDS: Chlorhexidine 0.12% 15 mL Oral Solution MT SCH ×5 (03:54→20:46)
[2016-08-29] MEDS: Dextrose 5% 0.9% NaCl 1,000 ML IV SCH ×2 (03:54→14:41)
[2016-08-29] MEDS: fentaNYL 2,500 mCg/250 mL IV Premix IV SCH (04:18)
[2016-08-29] MEDS: LORazepam 100 mg/100 mL NS 100 MG in IV Premix 100 EACH IV SCH (04:18)
[2016-08-29] MEDS: Vancomycin Inj 1,000 MG in IV Premix 1 EACH IV SCH ×2 (05:39→16:48)
--- NOTE | 2016-08-29 05:43 | NUR ---
Patient condition No changes made to sedation drips. Patient wakes easily with care and is agitated at times. Patient seems to be assisting slighly with turns when instructed to do so. HR less than 100 when patient resting.
--- NOTE | 2016-08-29 08:27 | DRSVH ---
PROCEDURE: X-RAY CHEST ONE VIEW, PORTABLE ([id number]) INDICATIONS: aspiration pneumonia TECHNIQUE: One view of the chest was acquired. COMPARISON: [facility], CR, XR CHEST 1VW (PORTABLE), 08/28/2016, 7:54. FINDINGS: Surgical changes and devices: Stable position of ETT and nasogastric tube Lungs and pleura: No pleural effusions or pneumothorax. Medial right basilar airspace opacity uncha nged.. Mediastinum: Mediastinal contours appear normal. Heart size is normal. Bones and chest wall: No suspicious bony lesions. Overlying soft tissues appear unremarkable. IMPRESSION: Right medial basilar atelectasis versus aspiration or pneumonia. Correlate clinically. Dictated by: Ole Encarnacion RRA Interpreted: Misty Harris MD on 08/29/2016 at 8:26 Transcribed by: ORION on 08/29/2016 at 8:26 Approved by: Misty Harris M.D. on 08/29/2016 at 16:30
[2016-08-29] MEDS: Vancomycin Dose per Pharmacist XX SCH (08:30)
[2016-08-29] MEDS: Famotidine Inj 50 ML IV SCH ×2 (08:30→20:47)
[2016-08-29] MEDS ORDERED: Potassium Chloride 20 mEq/15 mL 15mL Oral Soln PO ONE (08:30)
[2016-08-29] MEDS: Piperacillin-Tazo 3.375 Gm Inj 3.375 GM in Dextrose 5% Minibag Plus 50 ML IV SCH ×2 (08:31→16:49)
[2016-08-29] MEDS: Thiamine Inj 200 MG in Dextrose 5% 50 ML IV SCH (08:31)
--- NOTE | 2016-08-29 09:10 | NUR ---
NUTRITION FOLLOW UP: ASSESS: 41 [facility] in [facility] for airway protection. Pt on CIWA protocol. Pt has been NPO X 3 day. PMHx: ETOH, smoking. DIET: NPO. LABS: Reviewed. Cr 0.55, Glu 124, Ca 8.1 MEDICATIONS: Reviewed. Ativan, fentanyl. GI: No stool reported. SKIN: No issues reported. ANTHROPOMETRICS: Current Wt: 68.1 kg, BMI: 23.5 kg/m2, IBW: 61.4 kg (114.1% IBW) ESTIMATED NEEDS (VENT): Calories: 2862-4527 kcal/day (20-25 kcal/kg BW Protein: 105-126 g/day (1.5-1.8 g/kg BW) Fluid: Approx. 0786-6616 ml/day (30-35 mL/kg BW) NUTRITION DIAGNOSIS: 1) Inadequate oral intake related to inability to consume sufficient energy, as evidenced by NPO/vent status. INTERVENTION: 1) If pt unable to be extubated, recommend initiate enteral feeding as follows: Jevity 1.5 at 35 ml/hr. Once tolerance established, recommend advance 10 ml every 4 hr. to goal rate rate 50 ml/hr. Flush dose 40 ml H2O every 4 hr. In addition, recommend add 1 packet [employer] liquid protein four times per day. Enteral feeding at goal would provide 1650 kcal, 114 g protein (70 g formula + 44 g ProSource), sufficient to meet 100% nutrient needs. 2) In the event propofol initiated, will adjust goal rate daily based on propofol rate. MONITOR/EVALUATE: NPO/vent status, labs, GI/nutrition status. Follow per high nutrition risk guidelines.
[2016-08-29] MEDS ORDERED: Potassium Chloride 20 mEq/15 mL 15mL Oral Soln ONE (10:40)
[2016-08-29] MEDS ORDERED: TRAZ-118 PO (12:43)
[2016-08-29] MEDS ORDERED: VALA500T38 PO (12:43)
[2016-08-29] MEDS ORDERED: FLUO40CA PO (12:43)
[2016-08-29] MEDS ORDERED: Vancomycin Serum Trough XX ONE ×2 (13:00→23:00)
[2016-08-29] MEDS ORDERED: Acyclovir 200 mg Capsule PO SCH (13:36)
--- NOTE | 2016-08-29 15:20 | PROG NOTE ---
[address] [address] PROGRESS NOTE PATIENT: AMELIE SINGH : 1975 MR#: [id number] ADMIT: 08/26/2016 JOB ID: [id number] DATE: 08/29/2016 PULMONARY CRITICAL CARE FOLLOWUP NOTE: PROBLEM LIST: 1. Alcohol intoxication. 2. Acute hypercarbic respiratory failure secondary to alcohol and possibly benzodiazepine overdose. 3. History of substance abuse. 4. Multiple admissions for intentional overdose. SUBJECTIVE: None. OBJECTIVE: Temperature 37.1, with T-max being 39.1. Pulse 74-84, though 102 with the elevated temperature, respiratory rate 11 with the ventilator set at 11, blood pressure 119/83, O2 sat on FiO2 of 35, with PEEP of 5 is 100%. I and O shows 2.5 L in, 2.1 L out. General appearance: Sedated. Gets extremely anxious with any interventions whatsoever. Agitated, bucking the ventilator. When no interventions she is lying still and apparently asleep. Fetid smell persists, not as strong as yesterday. Chest: Coarse crackles bilaterally. Leathery kind of crackle. With tidal volume of 480, PEEP of 5, peak inspiratory pressure is 21. Plateau 17. PEEP is set at 5, measured at 5. Heart: Regular rhythm. Heart tones normal. Abdomen is soft. Nondistended. Bowel tones present. Extremities: No cyanosis. LABORATORY DATA: Shows a white count of 11,900, with 87 polymorphonuclears, 6 lymphs, 4monocytes. Hemoglobin 10.3, slowly decreasing. Platelet count of 41,000, significantly decreasing. Sodium 136, potassium 3.7, chloride 104, CO2 is 19. BUN 6, creatinine 0.5, which is stable. Calcium 8.1, with an albumin of 2.9. Phosphorus normal at 2.9. Magnesium low-normal at 1.6. Total bilirubin 0.6. AST normal at 41. ALT normal at 18. Alkaline phos normal at 36. Procalcitonin 0.1, essentially normal. INR is 1. PTT is 3 4.5, upper limits of normal being 33 seconds. Fibrinogen 545, which is high. D-dimer moderately elevated at 2.4, upper limits of normal being 0.5. Chest x-ray shows a right lower lobe infiltrate. ASSESSMENT: 1. Acute alcohol intoxication. Requiring goodly amount of sedation. Gets quite anxious. Once things stabilize, I suspect we will be extubating the patient when she is still sleepy. Doubt we will get her controlled and awake. Might consider Precedex once we feel the benzodiazepines have played their role. Would wonder if she took something in addition to alcohol in another intentional overdose. 2. Thrombocytopenia. Probable disseminated intravascular coagulation. The source of the infection unclear at this point. However, blood cultures have alpha hemolytic colonies to be identified. Sputum growing Staphylococcus aureus. The patient currently on vancomycin and Zosyn. The former should cover the Staph until we have sensitivities available. Concerned about the DIC. Doubt heparin-induced thrombocytopenia, though I am unsure as to treatment rendered in the past few months. Have switched her to fondaparinux, which should not have problems if it is present. 3. Multiple electrolyte abnormalities. Magnesium on the low side. Will need supplementation. Often a problem in alcohol abuse. PLAN: 1. Magnesium rider. 2. Potassium rider. 3. Continue antibiotics to cover presumptive Staph aureus and anaerobes from aspiration. TIME SPENT: 40 minutes.
--- NOTE | 2016-08-29 16:20 | NUR ---
Social Work Note: Continued Discharge Planning Data& Assessment: Pt remains on the vent. NIKITA met with pt sister Ivana and father Keaton at bedside per their request. Pt family shared concerns about pt overall wellbeing and shared that there has been a cycle of going to treatment or detox and then binge drinking shortly after to the point of illness. Pt sister shared concerns about pt safety and explained that she had previously drank mouthwash because its "the type of thing that can kill her." SW asked if the pt had made those comments directly to her, pt sister explained she had told their mother that information. Pt sister stated that pt has not made direct suicidal statements to her but does feel like "she is giving up." Pt sister explained that the pt had recently been doing very well, successfully completing rehab at [facility] in Monday and then was employed there afterward. Per pt sister, pt was fired from her job last week. Pt was at [facility] shortly after where she detoxed, was released, binge drank, and then was brought to [facility] ED with a JUAREZ of [phone]. Pt sister communicated interest in detainment for involuntary chemical dependency treatment. There is not a facility in [facility] that accepts involuntary pt's at this time. NIKITA also discussed outpt support for alcohol and Crisis Respite with pt family. SW also provided pt family with resource list to reference for themselves. Pt sister stated that pt will most likely be homeless at time of discharge. SW explained we can provided pt with detention information but the local detention will not accept her if she has been drinking alcohol. Pt family communicated understanding that pt will likely be discharged into the community at time of discharge. NIKITA did call [facility] regarding potential Medicaid eligibility since she has been fired from her job that was providing her medical insurance. [facility] plans to follow up with pt for Medicaid eligibility screening if pt's insurance lapses during this hospitalization. Pt sister Ivana stated she will make sure that pt's belongings and ID are kept safe until pt is ready to discharge. Pt sister also plans to fax a copy of DPOA paperwork to SW office for pt chart. Pt family denies any other needs at this time. SW to follow up with pt post extubation for chemical dependency assessment and to assess for safety. SW to continue to follow. Plan: Anticipated discharge back into the community vs. Crisis Respite if appropriate. SW to follow up with pt post extubation for chemical dependency assessment and to assess for safety. Pt family denies any other needs at this time, psychosocial support provided. SW to continue to follow. ELENO Hylton
[2016-08-29] MEDS ORDERED: Dexmedetomidine 400 mCg/100 mL NS Premix IV ONE (16:31)
[2016-08-29] MEDS: Dexmedetomidine 400 mCg/100 mL NS Premix IV SCH (16:50)
--- NOTE | 2016-08-29 17:04 | NUR ---
Remains on vent support, no changes to settings this shift. Intermittently agitated, sitting bolt upright, no commands, does not track. Precedex infusion started after increasing Ativan and Fentanyl infusions and bolus' with little effect. Scant dark brown vaginal discharge. Vaginal swab obtained, no tampons or other foreign body found upon assessment. Mother called today and advised that she has "forgotten" her tampon before and was concerned she may have "toxic shock syndrome". Medications/list obtained from her dad and sister; Prosac and acyclovir resumed. IVFs infusing, brisk UOP, no stool. BP stable, sinus rhythm on tele, lo-grade temp. Odor in room isolated to ventilator exhaust, RT aware.
--- NOTE | 2016-08-29 17:50 | PCM.PNMED ---
Subjective Date of Service Aug 29, 2016 Subjective 41-year-old woman with alcoholism presents with acute alcoholic intoxication Patient is sedated today. Minimally responsive to voice. Appears comfortable. Exam Vital Signs Vital Sign - Last Date Time Temp Pulse Resp B/P Pulse Ox O2 Delivery O2 Flow Rate FiO2 08/29/16 16:26 94 139/101 97 35 08/29/16 16:00 37.6 11 Mechanical Ventilator 08/26/16 13:53 Intake and Output 08/28/16 08/28/16 08/29/16 Cumulative From/Thru 14:59 22:59 06:59 08/26/16 13:10 - 08/29/16 06:35 Intake Total 1272 ml 1013 ml 8878 ml Output Total 1200 ml 700 ml 4350 ml Balance 72 ml 313 ml 4528 ml IV Total 1272 ml 1013 ml 8878 ml Output Urine Total 1200 ml 700 ml 3850 ml Gastric Drainage Total 500 ml # Bowel Movements 0 Exam General: Generally healthy-appearing, intubated HEENT: sclerae anicteric, bilateral conjunctival crusting, no acute conjunctivitis, Neck: no apparent JVD or adenopathy Chest: Generally clear to auscultation Cardiac: S1S2, regular, no murmur Abdomen: BS normal, non-rigid Extremities: No pedal edema Neuro: Sedated, cranial nerves symmetric, motor strength 5/5, coordination normal IVs and Medications Medications Reviewed: Medications were reviewed in detail Lab and Diagnostics DateTimeAnalyzed 06:18:00 -_ pH ____7.430 - 7.350 7.450 pCO2 ___32.2__ -mmHg 35.0 45.0 pO2 ___88.4__ -mmHg 69.0 116 Procalcitonin: 24/20 0.1 . Result Diagram: 08/29/16 0220 08/29/16 1345 Microbiology Sputum culture: Many PMN, probable staph species Blood cultures 08/27/16 - 1 bottle with gram-positive coccus, preliminary ID streptococcal X-Rays, CTs and MRIs PROCEDURE: X-RAY CHEST ONE VIEW, PORTABLE IMPRESSION: Support lines as above. Lungs are clear. Approved by: Misty Harris M.D. on 08/27/2016 at 10:59 PROCEDURE: X-RAY CHEST ONE VIEW, PORTABLE ([id number]) IMPRESSION: Right medial basilar atelectasis versus aspiration or pneumonia. Correlate clinically. Dictated by: Ole Encarnacion RRA Interpreted: Misty Harris MD on 08/29/2016 at 8:26 . 12-lead ECG Normal sinus rhythm. No QTc prolongation. Assessment & Plan Ms. Pereira is a 41-year-old female became unconscious in a cab ride and GCS was 8 who was admitted for alcohol intoxication, possible suicide attempt with alcohol and Ativan. #. Acute Alcohol withdrawal, acute, present on admission. Active. Very agitated when sedatives are decreased. The patient remains on Ativan drip at 2 per hour. - Continue to observe for signs of significant alcohol withdrawal #. Acute hypercarbic respiratory failure and intubation for airway protection. Intubated with FiO2 of 40 with PEEP of 5. - Wean as tolerated #. Sepsis. POA. SIRS: Heart rate 103, respiratory rate 23 on admission. Subsequently with WBC 13.9. MAXIMUM TEMPERATURE 39.1 on 09/02/16. Probable aspiration pneumonia, acute, present on admission. Also concern for oropharyngeal infection. Blood cultures equivocal. Active. - Continue Zosyn - Infectious disease consult #. Thrombocytopenia. Platelet count 142 on admission to 10/24, declined to 41 on 08/29. No heparin treatment. Only on Lovenox which is now discontinued. No signs of renal failure, rash, or bleeding. - Anti-PF4 antibody pending - No anticoagulant at present #. Recurrent alcohol intoxication. Possible suicide attempt. A bottle of Ativan was found at her bedside -Will obtain more history and gather information in the future when patient becomes more alert and awake - We will consider psychiatry consult as she convalesces Diet: Nothing by mouth DVT prophylaxis: lovenox scd Code Full Disposition inpatient - expect several days of further inpatient care VTE Prophylaxis: Sub-Q Enoxaparin VTE Mechanical Devices: Intermittant Pneumatic CD Resuscitation Status: CPR: Attempt Resuscitation Time spent 40 minutes, critical care time. Andrey Bradford MD Aug 29, 2016 17:50
--- NOTE | 2016-08-29 20:05 | CONS ---
[address] [address] CONSULTATION REPORT PATIENT: AMELIE SINGH : 1975 MR#: [id number] ADMIT: 08/26/2016 JOB ID: [id number] DATE OF SERVICE: 08/29/[address] Holguin for this consult. REASON FOR CONSULTATION: Ventilator-dependent respiratory failure secondary to polysubstance abuse including acute alcohol intoxication. Now complicated by pulmonary infiltrate and with multiple positive cultures. HISTORY OF PRESENT ILLNESS: The patient is a very unfortunate, 41-year-old woman with history of polysubstance abuse and depression who was been through numerous attempts at rehab. Most recently, the patient just finished up time at the [facility] for alcoholism and almost immediately following her release apparently began to drink heavily. She was admitted to this facility on March 26 after she was found to be unconscious in a taxi cab and reportedly ingested large amounts of alcohol as well as benzodiazepines. Upon admission, she had very diminished mental status and required intubation for protection of the airways and has been in the ICU since over the past three days. Her blood alcohol level here was just over 500, and it is worth noting that there are notes in the chart from [facility] from just a few days ago where she was seen in an ED there and found to have a blood alcohol level of 400. Apparently that [facility] visit on August 24 did not result in admission. The patient was discharged only to be admitted here 48 hours later with an even higher alcohol level and an unconscious state. Unable to protect her airway. The patient remains intubated and sedated in the ICU, and there is obviously no additional history available from her. I did review what records are available and discussed this case with other physicians during ICU rounds. PAST MEDICAL HISTORY: 1. Polysubstance abuse involving primarily alcohol but also other drugs. 2. History of depression. SOCIAL HISTORY: Really not available though notes in the chart and her presentation clearly indicate that she has issues with alcohol abuse and is also known to be a current smoker. FAMILY HISTORY: Not available at this time as the patient is intubated and sedated. REVIEW OF SYSTEMS: Not available as she is intubated and sedated. PHYSICAL EXAMINATION: Reveals a surprisingly well-developed, well-nourished woman considering her long history of substance abuse and multiple trips to rehab. Her temperature was 39.1 at midnight. It is currently 37.1, and these are axillary temperatures. Pulse 84. Respiratory rate ventilator-dependent. Blood pressure 119/83. She is on 35 FiO2 and 5 of PEEP and saturating 100%. Examination of the head reveals no evidence of trauma. The eyes are without conjunctivitis or scleral icterus. The pupils are small and react to light. Nose normal. Oral cavity difficult to examine as she has oral endotracheal tube and orogastric tube in place. There are no herpetic lesions on the lips though. The neck is quite supple and without adenopathy. Lungs are notable for a few crackles at the bases, perhaps left more than right but quite clear otherwise with no wheezing. Cardiac tones: Regular rate and rhythm without any murmur. The abdomen is soft and nontender. There is definitely no hepatosplenomegaly and no ascites noted. No suprapubic fullness or abnormality. She does have a Hector catheter. The extremities are free of synovitis, cellulitis or edema. Neurologic exam cannot be done as the patient is intubated and sedated. There is some mild erythema on the back. I was asked informally on the by one of the nurses to look at the patient's back and at that time she had scattered shallow pustular lesions which I thought were secondary to lying in the supine position for too long with heat and moisture. This rash is actually much better than it was three days ago, and I think it is resolving just with proper positioning and hygiene here in the hospital. LABORATORIES: Include white count 5500 when she came in. It is now 12,000 with a modest left shift, 87% segs, creatinine 0.55. LFTs normal. Albumin 2.9. Procalcitonin is basically negative twice, 0.07 and 0.1. Urinalysis without white cells. Alcohol level 513 on admission here the afternoon of the . Micro studies include 1/4 blood culture bottles growing an alpha strep organism. Sputum shows moderate polys, some mixed jossue on the Gram stain but is growing Staph aureus with susceptibilities pending. MRSA screen is also pending as is a nasopharyngeal swab. IMAGING: Was carefully reviewed on the monitor. It shows some subtle right basilar atelectasis. This is new since the . IMPRESSION: This is an extraordinarily unfortunate, 41-year-old woman who has had many admissions to rehabilitation for alcohol and drug problems over the course of her life. She was recently released from [facility] and then turned up in [facility] ED with a blood alcohol level of 400 and obtundation. That was on August 24 and she was treated with fluids and niacin and tincture of time and recovered enough to be discharged. She was then found unconscious in the back of a cab and brought here on the and admitted with a blood alcohol level that was 513, requiring intubation and airway protection. Her intensive care unit course has been complicated by agitation at times and she remains intubated and sedated at this point. As to whether this patient has an infection, the evidence is somewhat contradictory, but I believe that she probably does. She has high spiking fevers including a temp to 39.1 just at midnight. She also has a leukocytosis which is not dramatic but nonetheless somewhat worrisome. In addition, she has sputum which has many polys and is growing Staphylococcus aureus and it is possible that she has an early right-sided Staph aureus pneumonia perhaps on the basis of aspiration. Aspiration pneumonia with or without the Staph aureus as a player is also a strong possibility in a patient who spent so much of the last week obtunded and/or intubated. Also of concern is the single blood culture growing an alpha strep. This will likely represent a viridans streptococcal bacteremia of no clinical significance but will have to hold our decision on that until we see if other blood cultures turn positive and perhaps what an echo shows. RECOMMENDATIONS: 1. Ordinarily, I dislike the combination of vancomycin and Zosyn because of its potential for nephrotoxicity but here I think, fortunately, that makes sense. We want to provide coverage for what could be a MRSA-type pneumonia as we do not know the identity of the staph in the sputum and linezolid would be wildly unsafe in this patient with a dropping platelet count. So, we will continue with vancomycin until we know susceptibilities. 2. I would continue with the Zosyn for the time being until we have a better idea about the alpha strep in her blood as well as the simple issue of aspiration pneumonia. 3. Since we do not have any record here, I think it is reasonable to go ahead and check human immunodeficiency virus and hepatitis C, though I have no particular reason to suspect either will be positive, but this just constitutes good clinical care in accordance with the CDC guidelines. Thank you very much for involving me in the care of this complex young woman and will continue to follow closely with you.
[2016-08-29] MEDS: Acyclovir 400 mg Tablet PO SCH (20:54)
[2016-08-30] VITALS (13 sets, daily range): BP systolic 80–131; BP diastolic 52–93; PULSE 60–82; RESP 11–14; O2SAT 88–98
[2016-08-30] MEDS ORDERED: Vancomycin Inj 1,000 MG in IV Premix 1 EACH IV SCH
[2016-08-30] MEDS ORDERED: Vancomycin Serum Trough XX ONE ×2 (00:20→22:30)
[2016-08-30] MEDS ORDERED: Vancomycin Inj 1,500 MG in 0.9% Sodium Chloride 500 ML IV ONE (00:45)
[2016-08-30] MEDS: Chlorhexidine 0.12% 15 mL Oral Solution MT SCH ×7 (01:16→23:29)
[2016-08-30] MEDS: Piperacillin-Tazo 3.375 Gm Inj 3.375 GM in Dextrose 5% Minibag Plus 50 ML IV SCH ×4 (01:17→23:38)
[2016-08-30] MEDS ORDERED: 0.9% Sodium Chloride 250 ML ONE (01:17)
--- NOTE | 2016-08-30 02:57 | PCM.PHAPRO ---
Progress Date of Service: Aug 30, 2016 to cover 1 positive blood culture for GPC Vancomycin dose per pharmacy Vancomycin trough goal: 15-20 Troughs 08/29/16 at 2250: 4.2. (This seemed unusually low based on vanco dose received so repeat trough was ordered) 08/30/16 at 0030: 7.6. (Was drawn prior to next dose so this is a true trough). Will disregard trough from 2250 as an error. As patient never received a true loading dose and trough is below goal, will give loading dose and increase maintenance dose. Loading dose: vanco 1500 mg IV loading dose x1 at 0045. Maintenance dose: 1250 mg Q8H starting at 0700. Trough has been ordered for 08/30/16 @2230. Pharmacy to continue to monitor and dose vancomycin. Thank you, Shelton Esparza Pharmacist Shelton Esparza Aug 30, 2016 02:57
[2016-08-30] MEDS: fentaNYL 2,500 mCg/250 mL IV Premix IV SCH (03:21)
[2016-08-30] MEDS: LORazepam 100 mg/100 mL NS 100 MG in IV Premix 100 EACH IV SCH (03:21)
[2016-08-30] MEDS: Dextrose 5% 0.9% NaCl 1,000 ML IV SCH ×2 (03:44→22:34)
[2016-08-30 04:10] LABS: BASOPHILS % (AUTO) 0.1 % (0-3); EOSINOPHILS % (AUTO) 2.7 % (0-5); MONOCYTES % (AUTO) 14.2 % (4-12); Mean Corpuscular Hemoglobin 30.7 pg (27.0-35.0); Mean Corpuscular Volume 90.8 fL (81-100); NEUTROPHILS % (AUTO) 70.3 % (40-74); Platelet Count 49 bil/L (150-400)
[2016-08-30 04:31] LABS: Magnesium 1.6 mg/dL (1.6-2.6); Phosphorus 3.3 mg/dL (2.5-4.9)
[2016-08-30] MEDS ORDERED: Potassium Chloride 20 mEq/15 mL Oral Soln(K 3 - 3.7 & Creat < 2) TUBE ONE (05:15)
[2016-08-30] MEDS: Dexmedetomidine 400 mCg/100 mL NS Premix IV SCH ×2 (06:34→18:44)
[2016-08-30] MEDS: Vancomycin Inj 1,250 MG in 0.9% Sodium Chloride 250 ML IV SCH ×3 (06:34→23:23)
--- NOTE | 2016-08-30 06:40 | NUR ---
Sedation / Resp Ativan titrated down to 1mg/hr, Precedex up to 0.5mcg/kg/hr. Fentanyl infusing at 75mcgs/hr. Patient tolerating these changes with minimal agitation so far. Patient continues to have creamy, yellow secretions during night, slightly less than the previous [employer]. ABS administered. Lung sounds slightly decreases in right base compared to left. No changes to vent settings overnight.
[2016-08-30] MEDS: Famotidine Inj 50 ML IV SCH (08:01)
[2016-08-30] MEDS: Acyclovir 400 mg Tablet PO SCH ×2 (08:09→20:13)
[2016-08-30] MEDS: Thiamine Inj 200 MG in Dextrose 5% 50 ML IV SCH (08:27)
[2016-08-30] MEDS: Vancomycin Dose per Pharmacist XX SCH (08:30)
--- NOTE | 2016-08-30 09:04 | PROG NOTE ---
[address] [address] PROGRESS NOTE PATIENT: AMELIE SINGH : 1975 MR#: [id number] ADMIT: 08/26/2016 JOB ID: [id number] DATE: 08/30/2016 INFECTIOUS DISEASE FOLLOW UP NOTE: REASON FOR FOLLOWUP: Aspiration pneumonia, bacteremia and ventilatory dependent respiratory failure. INTERVAL HISTORY: Recall that this is the 41-year-old woman with severe complications of ongoing alcoholism who was admitted here with alcohol level over 500 and required intubation on the afternoon of the . She has subsequently been spiking fevers and we have been searching for a source while providing broad-spectrum antibiotics. INTERVAL HISTORY: Overnight the patient remains intubated and very sedated. This morning, I am unable to arouse her by voice or by touch. This case discussed with the ICU team in great detail on ICU rounds. PHYSICAL EXAMINATION: Reveals a currently afebrile woman lying supine intubated in her hospital bed at ICU bed. Temperature is 36.5, but she has been as high as 38.6 during the night. This is her really fourth day of consecutive fevers. Her pulse is in the 60s. Blood pressure 103/74. She is on no vasopressor agents and saturating well on 35% FiO2 and 5 of PEEP. The eyes are without conjunctivitis or scleral icterus. Pupils are mid-range and reactive. Oral endotracheal tube, orogastric tube in good position. Neck without abnormalities. Lungs with rales at the right base which are more distinctive than yesterday. The remainder of the lung carrillo are fairly clear. The cardiac tones regular rate and rhythm without murmur. The abdomen is soft and apparently nontender though difficult to assess. No hepatosplenomegaly or ascites is noted. Extremities free of cellulitis or edema. IV lines in good position. LABORATORIES: Include a white count which has dropped today to 7000. The differential is also normal today for basically the first time. Creatinine is 0.45 and stable. LFTs are normal. Albumin 2.9. Urinalysis without white cells. HIV and hep C. ordered yesterday are negative. Micro studies include one of four blood cultures from admission growing an alpha strep to be identified. Sputum from admission is growing heavy growth of Staph aureus, and susceptibilities will not be available until tomorrow. A MRSA screen is back and negative. A sinus swab that was done shows rare polys, and many gram-positive cocci, and the gonorrhea culture has been performed but is not yet done from a vaginal swab. IMAGING: I just reviewed on the view screen. It shows an increasing right lower lobe infiltrate which is much more obvious than yesterday. IMPRESSION: This unfortunate woman with life-threatening alcoholism and recurrent hospital admissions for admissions related to that now is admitted with basically coma secondary to acute alcohol overdose. She clearly is infected and it is now becoming more obvious that her problem is her right lower lobe pneumonia which is almost certainly an aspiration event. Sputum is growing Staph aureus but unfortunately we do not have susceptibilities yet even though a MRSA screen of the nares is negative. I believe, at this point, we are stuck with two antibiotics for a little bit longer until we have excluded the possibility of MRSA which should be tomorrow. RECOMMENDATIONS: 1. Will continue with vanc and Zosyn with close watch on her kidneys. 2. We await the identification of the organism in the blood which may be a bacteremia of no significance as well as the final susceptibilities on the sputum Staph aureus which is much more significant. 3. Repeat blood cultures will be done now. 4. ID will continue to closely follow this complex patient with you.
--- NOTE | 2016-08-30 09:29 | PCM.PNMED ---
Subjective Date of Service Aug 30, 2016 Subjective ICU/pulmonary progress note Patient did well overnight. Still has some agitation and sedation is lower. Currently titrating down on the Ativan and increasing Precedex to control the agitation. Patient also on propofol. Vent settings are appropriate although there is no ABG this morning. Exam Vital Signs Vital Sign - Last Date Time Temp Pulse Resp B/P Pulse Ox O2 Delivery O2 Flow Rate FiO2 08/30/16 09:05 62 109/86 97 35 08/30/16 03:33 Ventilator 08/30/16 03:32 36.5 11 08/26/16 13:53 Intake and Output 08/29/16 08/29/16 08/30/16 Cumulative From/Thru 15:00 23:00 07:00 08/26/16 13:10 - 08/30/16 06:03 Intake Total 1457 ml 2436 ml 29156 ml Output Total 1000 ml 650 ml 6000 ml Balance 457 ml 1786 ml 6771 ml Intake Oral 30 ml 500 ml 530 ml IV Total 1147 ml 1936 ml 00019 ml Tube Irrigant 280 ml 280 ml Output Urine Total 950 ml 650 ml 5450 ml Gastric Drainage Total 50 ml 550 ml # Bowel Movements 0 Exam Gen.: Patient sedated; arousable to stimulus HEENT: ET tube in place, neck supple Cardiovascular: Regular rate and rhythm; fluid balance seems appropriate at this time, capillary refill less than 2 seconds Respiratory: Harsh breath sounds on the right near the sternum, otherwise there is mild late expiratory wheezing Abdomen: Positive bowel sounds, soft Extremities: No edema noted on exam, pulses intact Psych: Sedated Neuro: Sedated Skin: No rashes IVs and Medications Medications Reviewed: Medications were reviewed in detail Lab and Diagnostics Result Diagram: 08/30/16 0320 08/30/16 0320 Assessment & Plan Acute alcohol intoxication Thrombocytopenia Staph positive sputum culture Alpha-hemolytic Gram-positive bacteremia History of substance abuse Neurological: Patient is anxious and agitated when sedation was withdrawn. We will attempt to decrease the Ativan and increased Precedex. Once patient is more awake we will try a spontaneous breathing trial. There is concern that this patient may be took additional meds on top of the suspected Ativan and confirmed alcohol. Cardiovascular: Cardiovascular standpoint the patient is stable and doing very well without pressors Respiratory: Patient is easily vented. No ABG this morning. Chest x-ray is worsening with an increased right middle to lower lobe infiltrate suspicious for aspiration. Sputum culture now has gram-positive cocci that appears to be staph. We will continue with serial chest x-rays for progression, and order pro -calcitonin and CBC tomorrow morning. Should patient become more awake we will attempt to do a spontaneous breathing trial this afternoon, which if she passes , we can consider extubation as early as tomorrow however this is probably likely GI: Defer to primary for bowel regimen Infection: Alphahemolytic Gram-positive bacteremia and new Gram-positive sputum culture with the appearance of staph. Infectious disease is following along recommends the patient kept on vancomycin and Zosyn. Renal function has been tolerating this combination. Her calcitonin CBC will be checked tomorrow morning. The bacteremia was isolated in 1 out of 2 bottles is questionable if this is a contaminant or not. The staph in the sputum however is concerning and we await the final report and identification of susceptibilities. Patient was MRSA negative on screen. Renal: At this time the patient's renal function is remarkably well. Total fluid balance is +6.7 L, although going by weight she is questionably down 2 kg. We will continue to monitor for signs of sepsis and give fluids as needed. Disposition: Patient's outlook will improve once we can get a sense of her neurological status. Questionable whether she had anoxic brain injury due to her attempted overdose. Hopefully by the end of the day this will be resolved and we can have the patient awake. Current temperature extubation could be as early as tomorrow but much more likely to be a couple of days. Time spent: One hour VTE Prophylaxis: Sub-Q Enoxaparin VTE Mechanical Devices: Intermittant Pneumatic CD Resuscitation Status: CPR: Attempt Resuscitation Attending Statement The patient was seen and examined together with Dr. Mendoza on 08/30/2016 and I agree with the history, exam and plan as outlined in the note above. Tony Mendoza DO Aug 30, 2016 09:29 Gavin Holguin MD Sep 09, 2016 10:07
--- NOTE | 2016-08-30 09:59 | DRSVH ---
PROCEDURE: X-RAY CHEST ONE VIEW, PORTABLE ([id number]) INDICATIONS: aspiration pneumonia TECHNIQUE: One view of the chest was acquired. COMPARISON: [facility], CR, XR CHEST 1VW (PORTABLE), 08/29/2016, 4:31. FINDINGS: Surgical changes and devices: Stable position the ETT and nasogastric tube. Lungs and pleura: No pleural effusions or pneumothorax. Interval increase in airspace opacity invol ving the right lung base.. Mediastinum: Mediastinal contours appear normal. Heart size is normal. Bones and chest wall: No suspicious bony lesions. Overlying soft tissues appear unremarkable. IMPRESSION: Worsening opacification at the right lung base consistent with aspiration or pneumonia. Dictated by: Ole Encarnacion RRA Interpreted: Misty Harris MD on 08/30/2016 at 9:58 Transcribed by: ORION on 08/30/2016 at 9:59 Approved by: Misty Harris M.D. on 08/30/2016 at 16:43
--- NOTE | 2016-08-30 10:03 | NUR ---
NUTRITION FOLLOW UP: ASSESS: 41 [facility] in the ED for airway protection. Pt on CIWA protocol. Pt has been NPO X 4 days. Received verbal to start TF today. Pt has not had a BM since admit. PMHx: ETOH, smoking. DIET: NPO. LABS: Reviewed. 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 Ativan, fentanyl, thiamine GI: No stool reported. SKIN: No issues reported. Ryan Rios ANTHROPOMETRICS: Current Wt: 68 kg, BMI: 23.5 kg/m2, IBW: 61.4 kg (114.1% IBW). Admit wt 70kg ESTIMATED NEEDS (VENT): Calories: 1129-6609 kcal/day (20-25 kcal/kg BW Protein: 100-120 g/day (1.5-1.8 g/kg BW) Fluid: Approx. 7621-6976 ml/day (25-30 mL/kg BW) NUTRITION DIAGNOSIS: 1) Inadequate oral intake related to inability to consume sufficient energy, as evidenced by NPO/vent status.--PERSISTS INTERVENTION: 1) Received verbal order to start TF. Recommend start TF of Jevity 1.5 at 35 ml/hr. Once tolerance established, recommend advance 10 ml every 4 hr. to goal rate rate 50 ml/hr. Flush dose 40 ml H2O every 4 hr. 2) Once TF at goal rate recommend add 1 packet ProSource liquid protein TID. Enteral feeding at goal would provide 1650 kcal, 103 g protein (70 g formula + 33 g ProSource), sufficient to meet 100% nutrient needs. 3) In the event propofol initiated, will adjust goal rate daily based on propofol rate. MONITOR/EVALUATE: NPO/vent status TF start/rommel, BM?, labs, GI/nutrition status. Follow per high nutrition risk guidelines.
[2016-08-30] MEDS ORDERED: Magnesium Sulf 2 Gm/50mL Water 2 GM in IV Premix 1 EACH IV ONE (10:55)
--- NOTE | 2016-08-30 11:32 | ABG ---
DateTimeAnalyzed 11:27:00 -_ pH ____7.392 - 7.350 7.450 pCO2 ___33.8__ -mmHg 35.0 45.0 pO2 ___86.6__ -mmHg 69.0 116 HCO3- ___20.2__ -mmol/L 22.0 26.0 ABE ___-3.6__ -mmol/L -2.0 2.0 tHb ___10.1__ -g/dL O2Hb ___94.7__ -% COHb ____1.1__ -% MetHb ____1.1__ -% sO2 ___96.8__ -% FIO2 ___35.0__ -% PRVC 480 - PEEP ____5.0__ -cmH2O Drawn By JJ - Date/Time Notified____ 11:32:00 -_ Spontaneous_RR ___11.0__ -b/min Oxygen Device 1 VENTILATOR - Notified By JJ - Notified Whom ___DR SURESH - B 755 -mmHg tO2 ___13.5__ -Vol% Justino test _Positive -
[2016-08-30] MEDS: Senna Leaf Extract 528 mg/15 mL Syrup PO SCH (13:40)
[2016-08-30] MEDS: Polyethylene Glycol (PEG) 17 Gm Powder PO SCH (13:40)
--- NOTE | 2016-08-30 13:59 | DRSVH ---
PROCEDURE: X-RAY CHEST ONE VIEW ([id number]) INDICATIONS: low o2 saturations TECHNIQUE: One view of the chest was acquired. COMPARISON: [facility], CR, XR CHEST 1VW (PORTABLE), 08/30/2016, 4:59. FINDINGS: Surgical changes and devices: Endotracheal tube and nasogastric tubes are unchanged. Lungs and pleura: There is a persistent appearance of right basilar opacity. There is mild increased appearance of retrocardiac opacity. Mediastinum: Mediastinal contours appear normal. Heart size is normal. Bones and chest wall: No suspicious bony lesions. Overlying soft tissues appear unremarkable. IMPRESSION: Interval increased retrocardiac opacity with stable appearance of right basilar opacity. Findings are suggestive of pneumonia with likely superimposed atelectasis. Dictated by: Misty Harris M.D. on 08/30/2016 at 13:50 Approved by: Misty Harris M.D. on 08/30/2016 at 13:57
--- NOTE | 2016-08-30 16:07 | PCM.PNMED ---
Subjective Date of Service Aug 30, 2016 Subjective 41-year-old woman with alcoholism presents with acute alcoholic intoxication Patient is sedated and not responsive to voice. Appears comfortable. Exam Vital Signs Vital Sign - Last Date Time Temp Pulse Resp B/P Pulse Ox O2 Delivery O2 Flow Rate FiO2 08/30/16 14:11 64 105/76 96 40 08/30/16 12:00 Ventilator 08/30/16 12:00 36.7 14 08/26/16 13:53 Intake and Output 08/29/16 08/29/16 08/30/16 Cumulative From/Thru 15:00 23:00 07:00 08/26/16 13:10 - 08/30/16 06:03 Intake Total 1457 ml 2436 ml 00401 ml Output Total 1000 ml 650 ml 6000 ml Balance 457 ml 1786 ml 6771 ml Intake Oral 30 ml 500 ml 530 ml IV Total 1147 ml 1936 ml 93818 ml Tube Irrigant 280 ml 280 ml Output Urine Total 950 ml 650 ml 5450 ml Gastric Drainage Total 50 ml 550 ml # Bowel Movements 0 Exam General: Generally healthy-appearing, intubated HEENT: sclerae anicteric, no acute conjunctivitis, Neck: no apparent JVD or adenopathy Chest: Generally clear to auscultation Cardiac: S1S2, regular, no murmur Abdomen: BS normal, non-rigid Extremities: No pedal edema Neuro: Sedated, cranial nerves symmetric, pupils 2 mm minimally reactive Lab and Diagnostics Result Diagram: 08/30/16 0320 08/30/16 0932 Assessment & Plan Ms. Pereira is a 41-year-old woman who became unconscious in a cab ride and GCS was 8 who was admitted for alcohol intoxication, possible suicide attempt with alcohol and Ativan. #. Coma, Acute Alcohol intoxication, acute, present on admission. Active. Agitated when sedatives are decreased, moving all extremities. Ativan drip has been weaned, current sedation with Precedex and fentanyl. Clinically she seems at low risk of significant alcohol withdrawal. Her persistent reduced mental status raises question about other toxins or hypoxic encephalopathy. - Continue to wean sedatives and monitor neurologic exam #. Acute hypercarbic respiratory failure and intubation for airway protection. Intubated with FiO2 of 40 with PEEP of 5. - Wean as tolerated when mental status improves #. Sepsis. POA. SIRS: Heart rate 103, respiratory rate 23 on admission. Subsequently with WBC 13.9. MAXIMUM TEMPERATURE 38.6 on 08/30/16, fevers generally downtrending. Chest x-ray shows clear right lower lobe infiltrate. Probable aspiration pneumonia, acute, present on admission. Also concern for oropharyngeal infection. Blood cultures show alpha hemolytic gram-positive coccus from aerobic bottle on 08/27. Sputum Gram stain appears to grow staph aureus. Pelvic exam performed and vaginal culture no growth so far. - Repeat blood cultures ordered - Continue Zosyn started on 08/27, vancomycin started on 08/30 - Infectious disease consult #. Thrombocytopenia. Platelet count 142 on admission to 10/24, declined to 41 on 08/29. No heparin treatment. Only on Lovenox which is now discontinued. No signs of renal failure, rash, or bleeding. - Anti-PF4 antibody pending - No anticoagulant at present - Repeat CBC in a.m. #. Recurrent alcohol intoxication. Possible suicide attempt. A bottle of Ativan was found at her bedside -Will obtain more history and gather information in the future when patient becomes more alert and awake - We will consider psychiatry consult as she convalesces Diet: Nothing by mouth DVT prophylaxis: lovenox scd Code Full Disposition inpatient - expect several days of further inpatient care VTE Prophylaxis: Sub-Q Enoxaparin VTE Mechanical Devices: Intermittant Pneumatic CD Resuscitation Status: CPR: Attempt Resuscitation Time spent 40 minutes spent in patient assessment in care coordination included review of data with consultants, personal review of imaging. Andrey Bradford MD Aug 30, 2016 16:07
--- NOTE | 2016-08-30 19:27 | NUR ---
Neuro/Sedation/VS/vent: RAAS -3 to -4, lorazepam off for 2 hours until pt turned to right side and became quite agitated resulting in desaturations to low 80's. Lorazepam bolus 2mg plus increase in precedex from 0.5 to 0.7 lead to hypotension with SBP 80's. Blood pressures return to baseline after down titration of gtts and repositioning to left side. Suctioned initially while on right side for scant amount creamy secretions without improvement. Secretions increase after turn to left with copious amount creamy to ames secretions out, MD updated and aware. No PST today. Current sedation is precedex at 0.5, ativan 0.25 and fentanyl 50mcg. GI//SPACE SYSTEM[employer] OPERATIONS MANAGER: UOP 1100cc via reed. No stool, bowel regimen started today. Scant amount brown vaginal drainage, no particular odor noted. TF started at 35ml/h as ordered with residual 380ml after [address] Wagner notified, order rec'd for trickle rate tonight with plan to re-evaluate tomorrow. Mother updated via telephone. Attempted to return call from sister but got voice mail. T-max today 37.7 at 1600.
[2016-08-31] VITALS (14 sets, daily range): BP systolic 101–142; BP diastolic 74–101; PULSE 53–62; RESP 11–20; O2SAT 95–100
--- NOTE | 2016-08-31 00:58 | PCM.PHAPRO ---
Progress Date of Service: Aug 31, 2016 to cover 1 positive blood culture for GPC Vancomycin dose per pharmacy Vancomycin trough goal: 15-20 Trough 08/30 @2230: 12.2 Vancomycin was increased on 08/30 -- patient received vancomycin 1500 mg repeat bolus due to low trough then received vancomycin 1250 mg Q8H. Increase vancomycin to 1500 mg Q8H. Trough has been ordered for 09/01/16 @0700. Pharmacy to continue to monitor and dose vancomycin. Thank you, Shelton Esparza Pharmacist Shelton Esparza Aug 31, 2016 00:58
[2016-08-31 03:00] LABS: BASOPHILS % (AUTO) 0.2 % (0-3); EOSINOPHILS % (AUTO) 2.3 % (0-5); MONOCYTES % (AUTO) 24.4 % (4-12); Mean Corpuscular Volume 89.5 fL (81-100); NEUTROPHILS % (AUTO) 58.9 % (40-74); Platelet Count 90 bil/L (150-400)
[2016-08-31] MEDS: Dexmedetomidine 400 mCg/100 mL NS Premix IV SCH ×4 (03:16→23:49)
[2016-08-31] MEDS: Chlorhexidine 0.12% 15 mL Oral Solution MT SCH ×6 (04:35→23:50)
[2016-08-31] MEDS: LORazepam 100 mg/100 mL NS 100 MG in IV Premix 100 EACH IV SCH (04:35)
[2016-08-31] MEDS: fentaNYL 2,500 mCg/250 mL IV Premix IV SCH ×2 (04:35→23:51)
[2016-08-31] MEDS ORDERED: 0.9% Sodium Chloride 250 ML ONE (05:19)
--- NOTE | 2016-08-31 06:17 | NUR ---
Sedation Fentanyl on standby for the first half of the shift, patient resting, RASS -2, when aroused patient is able to squeeze hands on commands. Patient later becomes very anxious, restless, sitting forward in the bed, RR in the 30s, patient reaching for the tube. Fentanyl turned back on. Patient responds well to Fentanyl and is able to rest again. Precedex infusing at 0.7 mcgs/kg/hr. Restraints in place. Continue to monitor.
[2016-08-31] MEDS ORDERED: Vancomycin Inj 1,500 MG in 0.9% Sodium Chloride 500 ML IV SCH (07:30)
[2016-08-31] MEDS: Acyclovir 400 mg Tablet PO SCH ×2 (08:10→20:58)
[2016-08-31] MEDS: Piperacillin-Tazo 3.375 Gm Inj 3.375 GM in Dextrose 5% Minibag Plus 50 ML IV SCH ×3 (08:10→23:50)
[2016-08-31] MEDS: Polyethylene Glycol (PEG) 17 Gm Powder PO SCH (08:11)
[2016-08-31] MEDS: Senna Leaf Extract 528 mg/15 mL Syrup PO SCH (08:11)
[2016-08-31] MEDS: Vancomycin Dose per Pharmacist XX SCH (08:17)
[2016-08-31] MEDS: Thiamine Inj 200 MG in Dextrose 5% 50 ML IV SCH (08:17)
[2016-08-31] MEDS: Dextrose 5% 0.9% NaCl 1,000 ML IV SCH ×2 (08:25→23:51)
--- NOTE | 2016-08-31 08:54 | PROG NOTE ---
[address] [address] PROGRESS NOTE PATIENT: AMELIE SINGH : 1975 MR#: [id number] ADMIT: 08/26/2016 JOB ID: [id number] DATE: 08/31/2016 INFECTIOUS DISEASE FOLLOWUP NOTE: REASON FOR FOLLOWUP: Ventilatory-dependent respiratory failure with associated right-sided aspiration pneumonia in a patient with relapsing alcoholism. INTERVAL HISTORY: Overnight, the patient has remained intubated and sedated. Though the night nurses report she was following some minimal commands during the night. She remains at this point, though, intubated, sedated and restrained, and no additional history is available from her. In discussing this case with the nurse this morning she reports that there has been considerable endotracheal tube suction material, some of which is copious and thick. Otherwise, the patient has been hemodynamically and respiratory and ventilator stable. PHYSICAL EXAMINATION: Reveals a woman who was spiking to 38.4 during the night. She is afebrile this morning at 37.2, blood pressure 122/89, saturating 97% on 40% FiO2 and 5 of PEEP. Examination of the eyes reveals no conjunctival or scleral abnormalities. Oral endotracheal tube and orogastric tube in good position. Lungs with focal rales at the right base. Cardiac tones: Regular rate and rhythm without murmur or gallop. The abdomen is essentially negative. There is no hepatosplenomegaly or ascites. Hector catheter is present. No adenopathy is noted. No skin rashes noted. LABORATORIES: Include white count now 6500, down from peak of 13,000. The diff is relatively normal. Platelet count only 90,000. Creatinine is 0.61 and stable. Liver function tests completely normal. Albumin 2.8. Most recent procalcitonin was 0.1 and that was done two days ago. Urinalysis without white cells. Hep C and HIV have come back negative. Cultures include a single positive blood culture, which is an alpha hemolytic strep isolated from one blood culture on admission. MRSA screen is negative, and respiratory tract culture from the is growing Staph aureus with susceptibilities which are pending. A vaginal culture for gonorrhea is proven to be negative. Yesterday's chest x-ray was reviewed and shows increasing right-sided infiltrate, which would be consistent with aspiration pneumonia. IMPRESSION: This unfortunate woman with chronic and relapsing alcoholism is admitted with ventilatory failure secondary to acute alcohol intoxication. She has now been in the intensive care unit for five days and has been ventilator dependent. She, undoubtedly, had an aspiration event to account for her right-sided infiltrate. Her sputum is growing a Staphylococcus aureus, and we are still awaiting the final susceptibilities but assuming this is methicillin-sensitive Staphylococcus aureus rather than methicillin-resistant Staphylococcus aureus, we can narrow our antibiotics today and treat her with Zosyn alone. Total duration of antibiotics for this aspiration/Staphylococcus aureus pneumonia would be 7-10 days. RECOMMENDATIONS: 1. Will continue with vancomycin and Zosyn for this morning. 2. I will be checking with the [facility] but if the Staph aureus isolated from sputum is MSSA, will drop the vancomycin today. 3. Will continue antibiotics through at least September 02 and perhaps for as long as September 05 depending on fever, white count and procalcitonin.
--- NOTE | 2016-08-31 11:03 | DRSVH ---
PROCEDURE: X-RAY CHEST ONE VIEW, PORTABLE ([id number]) INDICATIONS: 41-year-old woman is intubated. TECHNIQUE: One view of the chest was acquired. COMPARISON: [facility], CR, XR CHEST 1VW, 08/30/2016, 13:11. [facility], CR, XR CHEST 1VW (PORTABLE), 08/30/2016, 4:59. FINDINGS: Surgical changes and devices: The endotracheal tube and nasogastric tube are in expected position. Lungs and pleura: Bibasilar infiltrates and consolidations are unchanged, consistent with pneumonia. No pleural effusions or pneumothorax. Mediastinum: Mediastinal contours appear normal. Heart size is normal. Bones and chest wall: No suspicious bony lesions. Overlying soft tissues appear unremarkable. IMPRESSION: 1. The endotracheal tube and nasogastric tube in expected position. 2. Persistent bibasilar pneumonia. Dictated by: Christi Coyne M.D. on 08/31/2016 at 10:59 Approved by: Christi Coyne M.D. on 08/31/2016 at 11:02
--- NOTE | 2016-08-31 11:23 | NUR ---
NUTRITION FOLLOW UP: ASSESS: 41 YO F admitted to CCU for alcohol intoxication. Pt required intubation in the ED for airway protection and remains intubated currently. Pt on CIWA protocol. TF started yesterday w/ Jevity 1.5 at 35 ml/hr. Pt had GRV of 380ml and subsequently the rate was decreased to 10 ml/hr. GRV this morning is 280 ml. PMHx: ETOH, smoking. DIET: NPO. LABS: Reviewed. Bun 5, Glu 118, Ca 7.9, Albumin 2.8 MEDICATIONS: Reviewed. Colace, Senna, Miralax, Thiamine, Fentanyl GI: No BM SKIN: No issues reported. Ryan 10 ANTHROPOMETRICS: Current Wt: 69.8 kg, BMI: 24.1 kg/m2, IBW: 61.4 kg (114.1% IBW). Admit wt 70kg ESTIMATED NEEDS (VENT): Calories: 7625-5385 kcal/day (20-25 kcal/kg BW) Protein: 100-120 g/day (1.5-1.8 g/kg BW) Fluid: Approx. 2065-4801 ml/day (25-30 mL/kg BW) NUTRITION DIAGNOSIS: 1) Inadequate oral intake related to inability to consume sufficient energy, as evidenced by NPO/vent status.--PERSISTS INTERVENTION: 1) Recommend advancing Jevity 1.5 10 ml q 6 hrs to goal rate of 50 ml/hr, monitoring closely for increased GRV. 2) Recommended increasing HOB to at least 30 degrees 3) Once TF at goal rate recommend add 1 packet ProSource liquid protein TID. Enteral feeding at goal would provide 1650 kcal, 103 g protein (70 g formula + 33 g ProSource), sufficient to meet 100% nutrient needs. MONITOR/EVALUATE: NPO/vent status, TF rommel, BM?, labs, GI/nutrition status. Follow per high nutrition risk guidelines.
--- NOTE | 2016-08-31 13:08 | PCM.PNMED ---
Subjective Date of Service Aug 31, 2016 Subjective ICU/pulmonary progress note Patient did well with only one episode of agitation with lower sedation. Patient's been stable on the vent. With lower sedation she was more alert and able to follow simple commands. Exam Vital Signs Vital Sign - Last Date Time Temp Pulse Resp B/P Pulse Ox O2 Delivery O2 Flow Rate FiO2 08/31/16 11:26 58 102/74 97 40 08/31/16 08:00 37.2 11 Mechanical Ventilator 08/26/16 13:53 Intake and Output 08/30/16 08/30/16 08/31/16 Cumulative From/Thru 15:00 23:00 07:00 08/26/16 13:10 - 08/31/16 06:16 Intake Total 1328 ml 1317 ml 92143 ml Output Total 1480 ml 550 ml 8030 ml Balance -152 ml 767 ml 7386 ml Intake Oral 530 ml IV Total 1024 ml 1317 ml 58109 ml Tube Feeding 264 ml 264 ml Tube Irrigant 40 ml 320 ml Output Urine Total 1100 ml 550 ml 7100 ml Gastric Drainage Total 380 ml 930 ml # Bowel Movements 0 0 Exam Patient is sedated on a ventilator. Neck is supple with central line in place. Is regular rate and rhythm no murmurs rubs or gallops. Lungs are clear to auscultation. Coarse breath sounds in the left lower base. Abdomen has positive bowel sounds soft. Extremities show no edema or skin breakdown. Neurological and psychological evaluations are withheld due to lower consciousness. No rashes are noted. IVs and Medications Medications Reviewed: Medications were reviewed in detail Lab and Diagnostics Result Diagram: 08/31/16 0235 08/31/16 1145 Assessment & Plan Assessment 1 acute alcohol intoxication 2. Thrombocytopenia 3. MSSA sputum culture 4. Gram-positive bacteremia next line 5. History of substance abuse and overdose Neurological: Patient was less sedated overnight and continues to have agitation. Today her sedation was dropped and she again showed signs of agitation trying to sit up and pull at her event. Patient being placed on Seroquel 25 mg once today and then additional 25 at bedtime. With the Seroquel on board will attempt to decrease sedation again and evaluate the patient for alertness and see if she is able follow commands. Cardiovascular: Doing very well stable Respiratory: Patient's easily vented. No concerns from the standpoint except for some questionable pneumonia middle and lower lobes. Consistent with aspiration and discussed below. Once patient showed she is able to protect her airway she can be extubated. GI: Patient has bowel regimen Infection: MSSA sputum culture was positive and patient has been treated with vancomycin and Zosyn. We will drop the vancomycin today at the recommendation of infectious disease. Patient remains on Zosyn. Patient also had a alpha hemolytic Gram-positive bacteremia but again has been on antibiotics. No blood cultures were sent and we are awaiting those results. No white count or fever overnight. Procalcitonin check tomorrow morning Renal: Patient doing well right now. We will attempt diuresis the excess fluid off. Disposition: Still waiting for the patient to wake up so she can have an SBT and extubation. Otherwise she is stable with infectious disease workup and treatment still pending. Time spent: One hour VTE Prophylaxis: Sub-Q Enoxaparin VTE Mechanical Devices: Intermittant Pneumatic CD Resuscitation Status: CPR: Attempt Resuscitation Attending Statement The patient was seen and examined together with Dr. Mendoza on 08/31/2016 and I agree with the history, exam and plan as outlined in the note above. Tony Mendoza DO Aug 31, 2016 13:08 Gavin Holguin MD Sep 09, 2016 10:10
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
[2016-08-31] MEDS ORDERED: KCl 40 mEq/D5W 500 mL 40 MEQ in IV Premix 1 EACH IV ONE (14:30)
--- NOTE | 2016-08-31 15:49 | NUR ---
Sedation lightened this morning; continues to appears comfortable and restful, then becomes agitated, sitting bolt upright, following no commands, in resp distress. Precedex infusion increased per MDs. Titrating Ativan back down. TFs increased per dietary recommendation, advancing to goal, currently at 20mls/hr. 4-hour residuals have been 260 and 230 mls. Brisk UOP via reed cath. No stool. Received K-rider this morning, follow-up serum level unchanged, repeating rider per protocol. Skin intact and without redness. A few scattered small bruises noted. Mother updated by phone this morning. No visitors otherwise. Appears calm at restful at this time.
--- NOTE | 2016-08-31 21:35 | ABG ---
DateTimeAnalyzed 21:29:00 -_ pH ____7.411 - 7.350 7.450 pCO2 ___34.3__ -mmHg 35.0 45.0 pO2 ___83.4__ -mmHg 69.0 116 HCO3- ___21.3__ -mmol/L 22.0 26.0 ABE ___-2.3__ -mmol/L -2.0 2.0 tHb ___10.0__ -g/dL O2Hb ___95.1__ -% COHb ____0.9__ -% MetHb ____0.8__ -% sO2 ___96.7__ -% FIO2 ___40.0__ -% Drawn By LT - Date/Time Notified____ 21:35:00 -_ Notified By RN - Notified Whom RN - B 762 -mmHg tO2 ___13.5__ -Vol% OrderingPhysicianInitials bak - Justino test _Positive -
--- NOTE | 2016-08-31 22:08 | NUR ---
PST/Sedation Pt has moments of agitation where it seems like she is going to ET tube to pull out. RT placed pt on PST x 1.5 hours and Ativan/Fentanyl turned off. Pt tolerated PST well and ABG WNL. notified. Chooses not to extubate. Will restart sedation to pt comfort. Care ongoing
[2016-09-01] VITALS (11 sets, daily range): BP systolic 108–146; BP diastolic 79–96; PULSE 55–71; RESP 11–14; O2SAT 93–98
[2016-09-01 03:18] LABS: BASOPHILS % (AUTO) 0.1 % (0-3); EOSINOPHILS % (AUTO) 1.9 % (0-5); MONOCYTES % (AUTO) 28.7 % (4-12); Mean Corpuscular Hemoglobin 30.1 pg (27.0-35.0); Mean Corpuscular Volume 88.2 fL (81-100); NEUTROPHILS % (AUTO) 57.4 % (40-74); Platelet Count 140 bil/L (150-400)
[2016-09-01] MEDS: Chlorhexidine 0.12% 15 mL Oral Solution MT SCH ×5 (04:04→20:09)
[2016-09-01] MEDS: Dexmedetomidine 400 mCg/100 mL NS Premix IV SCH ×3 (04:05→17:58)
--- NOTE | 2016-09-01 04:50 | ABG ---
DateTimeAnalyzed 04:43:00 -_ pH ____7.449 - 7.350 7.450 pCO2 ___32.6__ -mmHg 35.0 45.0 pO2 ___84.7__ -mmHg 69.0 116 HCO3- ___22.3__ -mmol/L 22.0 26.0 ABE ___-0.8__ -mmol/L -2.0 2.0 tHb ___10.1__ -g/dL O2Hb ___94.9__ -% COHb ____0.9__ -% MetHb ____1.0__ -% sO2 ___96.7__ -% FIO2 ___40.0__ -% Set_RR ___11.0__ -b/min Vt __480.0__ -L Drawn By LT - Date/Time Notified____ 04:50:00 -_ Spontaneous_RR ___11.0__ -b/min Notified Whom DR FUIAMO - B 763 -mmHg tO2 ___13.6__ -Vol% Justino test _Positive -
[2016-09-01] MEDS: LORazepam 100 mg/100 mL NS 100 MG in IV Premix 100 EACH IV SCH ×2 (06:12→11:54)
[2016-09-01] MEDS ORDERED: Vancomycin Serum Trough XX ONE (07:00)
[2016-09-01 08:28] LABS: Magnesium 1.5 mg/dL (1.6-2.6); Phosphorus 3.5 mg/dL (2.5-4.9)
--- NOTE | 2016-09-01 08:29 | PROG NOTE ---
[address] [address] PROGRESS NOTE PATIENT: AMELIE SINGH : 1975 MR#: [id number] ADMIT: 08/26/2016 JOB ID: [id number] DATE: 09/01/2016 INFECTIOUS DISEASE FOLLOW UP NOTE: REASON FOR FOLLOWUP: Aspiration pneumonia involving MSSA. INTERVAL HISTORY: Overnight, the patient has been relatively stable on the ventilator. She remains sedated and does not yet follow commands or open her eyes to voice. This case was discussed in detail with the ICU attending as well as respiratory therapy. PHYSICAL EXAMINATION: Reveals an intubated sedated woman. Temperature 36.7, her last fever was 36 hours ago when she was 38.4 on the evening of August 30. Pulse 56, respiratory rate is ventilator dependent. Blood pressure 146/90. She is saturating very well on 40% FiO2 and 5 of PEEP. The patient's eyes are without scleral icterus or conjunctivitis. Oral endotracheal tube, oral gastric tube are in good position. Neck without notable adenopathy. Lungs with a few scattered rales at the right base but fairly clear. Cardiac tones regular rate and rhythm. Abdomen is soft and nontender throughout. Hector catheter is present. No skin rash noted. No peripheral edema noted. LABORATORIES: Include a white count of 6900. It has been normal for three days now. Platelet count is coming up nicely, now 140,000. Creatinine 0.53 is stable. LFTs are normal. Albumin 2.6. Our last procalcitonin a couple days ago was 0.1. HIV and hep C negative. Micro has a single positive blood culture on the for strep mitis. This likely represents a transient bacteremia of no significance. There are two sputum cultures growing Staph aureus. These are both MSSA. Vaginal cultures negative for gonorrhea. Follow up blood cultures are negative. IMAGING: Includes a chest x-ray done yesterday which shows persistent bibasilar infiltrates. IMPRESSION: This woman has a chronic and relapsing alcoholism. Was admitted with coma secondary to acute alcohol intoxication with a blood alcohol level over 500 requiring immediate intubation. She has now been in the ICU six days on the ventilator. Her extubation is contingent on her waking up and without being excessively agitated so that she can be safely removed from the ventilator though her overall respiratory dynamics are now much improved. Her sputum is growing MSSA and there seems little doubt that this is an aspiration type event. The strep mitis found in one blood culture is probably of no clinical significance at this point. RECOMMENDATIONS: 1. Will continue with Zosyn to complete a 10 day course which will take us through September 04. 2. If the patient were to be extubated and discharged before the , I would simply finish the 10 day course with oral Augmentin though that seems unlikely at this juncture. 3. I will enter the stop day for the antibiotics. 4. Note that I will be out of the country for the next 10 days starting September 02. I can be reached by E-mail on my [employer] E-mail regarding this or any other patient, but there will be undoubtedly some delay as my access to E-mail may not be constant.
[2016-09-01] MEDS ORDERED: Haloperidol 5 mg/mL Inj IVPUSH ONE (08:55)
[2016-09-01] MEDS: Thiamine Inj 200 MG in Dextrose 5% 50 ML IV SCH (09:21)
[2016-09-01] MEDS: Acyclovir 400 mg Tablet PO SCH ×2 (09:22→20:09)
[2016-09-01] MEDS: Piperacillin-Tazo 3.375 Gm Inj 3.375 GM in Dextrose 5% Minibag Plus 50 ML IV SCH ×2 (09:22→16:14)
[2016-09-01] MEDS: Polyethylene Glycol (PEG) 17 Gm Powder PO SCH (09:22)
[2016-09-01] MEDS: Senna Leaf Extract 528 mg/15 mL Syrup PO SCH (09:23)
[2016-09-01] MEDS: Heparin 5,000 Unit/mL Inj SUBQ SCH ×2 (09:45→20:10)
[2016-09-01] MEDS ORDERED: 0.9% Sodium Chloride 250 ML ONE (10:56)
[2016-09-01] MEDS: Dextrose 5% 0.9% NaCl 1,000 ML IV SCH (11:04)
[2016-09-01] MEDS ORDERED: Magnesium Sulf 4 Gm/100 mL H2O 4 GM in IV Premix 1 EACH IV ONE (11:10)
[2016-09-01] MEDS ORDERED: Potassium Phos (mMol) Inj 30 MMOL in Dextrose 5% 500 ML IV ONE (11:10)
--- NOTE | 2016-09-01 11:12 | DRSVH ---
PROCEDURE: X-RAY CHEST ONE VIEW, PORTABLE ([id number]) INDICATIONS: 41 year-old intubated male. TECHNIQUE: One view of the chest was acquired. COMPARISON: [facility], CR, XR CHEST 1VW (PORTABLE), 08/31/2016, 8:37. [facility], CR, XR CHEST 1VW, 08/30/2016, 13:11. [facility], CR, XR CHEST 1VW (PORTABLE), 08/30, 4:59. FINDINGS: Surgical changes and devices: Endotracheal tube and nasogastric tube remain in expected positions. Lungs and pleura: No pleural effusions or pneumothorax. There is persistent medial right lower lung airspace opacity with internal air bronchograms. Retrocardiac opacity has become less apparent. Mediastinum: Mediastinal contours appear normal. Heart size is normal. Bones and chest wall: No suspicious bony lesions. Overlying soft tissues appear unremarkable. IMPRESSION: Persistent medial right basilar pneumonia, with interval decreased retrocardiac atelectasis. Dictated by: Kai Murray M.D. on 09/01/2016 at 11:05 Approved by: Kai Murray M.D. on 09/01/2016 at 11:06
--- NOTE | 2016-09-01 11:14 | NUR ---
NUTRITION FOLLOW UP ASSESS: 41 YO F admitted to CCU for alcohol intoxication. Pt required intubation in the ED for airway protection and remains intubated. TF increased to 50 ml/hr. Pt continues to experience high residuals w/ 350 ml noted overnight. RN planning to hold TF and check GRV before advancing. Noted that pt still has not had BM. Plan to decrease Fentanyl. PMHx: ETOH, smoking. DIET: NPO. LABS: Reviewed. BUN 4, [place] Caster 0.53, Gluc 124, Ca 8.2, Alb 2.6 MEDICATIONS: Reviewed. Colace, Senna, Miralax, Pepcid, Thiamine, Fentanyl GI: No BM SKIN: No issues reported. Ryan 10 ANTHROPOMETRICS: Current Wt: 72.3 kg, BMI: 25.0 kg/m2, IBW: 61.4 kg Admit wt 70kg ESTIMATED NEEDS (VENT): Calories: 8589-4517 kcal/day (20-25 kcal/kg Admit BW) Protein: 100-120 g/day (1.5-1.8 g/kg Admit BW) Fluid: Approx. 5652-1687 ml/day (25-30 mL/kg Admit BW) NUTRITION DIAGNOSIS: 1) Inadequate oral intake related to inability to consume sufficient energy, as evidenced by NPO/vent status.--PERSISTS INTERVENTION: 1) Recommend continuing Jevity 1.5 at goal rate of 50 ml/hr, monitoring closely for increased GRV. 2) Hold TF if GRV reach 500 ml. Recheck after four hours. 3) Once TF at goal rate recommend add 1 packet ProSource liquid protein TID. Enteral feeding at goal would provide 1650 kcal, 103 g protein (70 g formula + 33 g ProSource), sufficient to meet 100% nutrient needs. 4) Consider adding Relistor for high GRV. Yellow team paged. MONITOR/EVALUATE: NPO/vent status, TF rommel/adv, BM?, labs, GI/nutrition status. Follow per high nutrition risk guidelines. Addendum: 02/23/17 at [address] Student documentation reviewed and agree with the above assessment. Mindy Magaña MS, TRAM, ED Addendum: 09/01/16 at [address] Per nursing, pt w/ GRV of 600. TFs being held until morning and will be restarted at 30 ml/hr. Relistor being added.
[2016-09-01] MEDS: fentaNYL 2,500 mCg/250 mL IV Premix IV SCH (11:57)
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
[2016-09-01] MEDS: Methylnaltrexone 12 mg/0.6 mL Inj SUBQ SCH (14:59)
[2016-09-01] MEDS ORDERED: Propofol 10,000 mCg/mL 100 mL Inj ONE (17:17)
--- NOTE | 2016-09-01 18:12 | ABG ---
DateTimeAnalyzed 18:06:00 -_ pH ____7.460 - 7.350 7.450 pCO2 ___32.2__ -mmHg 35.0 45.0 pO2 ___70.7__ -mmHg 69.0 116 HCO3- ___22.6__ -mmol/L 22.0 26.0 ABE ___-0.3__ -mmol/L -2.0 2.0 tHb ___10.2__ -g/dL O2Hb ___93.2__ -% COHb ____1.0__ -% MetHb ____0.8__ -% sO2 ___94.9__ -% FIO2 ___40.0__ -% PRVC 11 - PEEP ____5.0__ -cmH2O Vt __480.0__ -L Drawn By gj - Date/Time Notified____ 18:12:00 -_ Spontaneous_RR ___11.0__ -b/min Oxygen Device 1 VENTILATOR - Notified Whom FRY - B 762 -mmHg tO2 ___13.4__ -Vol% Justino test _Positive -
--- NOTE | 2016-09-01 18:34 | NUR ---
P: Agitation. I: Pt very agitated at times and has needed ativan 4mg/hr and numerous boluses up to 13mg at a time. Precedex 1 mcqs/kg/min and fentanyl increased to 100mcqs per Dr. Holguin. Propofol gtt started at 40mcqs and precedex decreased to 0.7mcqs. Pt sits straight up in bed and thrashes arms and legs and takes two people to hold her down until ativan bolus takes effect. Pt opens her eyes but does not follow commands or track. Dr. Mendoza and Dr. Holguin both present at bedside. Hector patent and draining good urine output. SB. BP stable. Tube feeding residual 600cc and Dr. Bradford aware. Tube feeding stopped for four hours and then restarted at 30cc/hr. Turned Q 2 hours. ABG done. Magnesium replaced per Dr. travis. D5NS 70cc/hr. Pt's mother and sister updated on pt's condition and plan of care. E: Stable S: Restraints on for pt safety. Frequent rounding.
[2016-09-01] MEDS: Propofol Inj 1,000,000 MCG in IV Premix 1 EACH IV SCH (22:07)
[2016-09-02] VITALS (12 sets, daily range): BP systolic 95–148; BP diastolic 62–95; PULSE 51–133; RESP 11–24; O2SAT 95–98
[2016-09-02] MEDS: Piperacillin-Tazo 3.375 Gm Inj 3.375 GM in Dextrose 5% Minibag Plus 50 ML IV SCH ×3 (00:21→15:46)
[2016-09-02] MEDS: Haloperidol 5 mg/mL Inj IVPUSH SCH ×3 (00:21→15:46)
[2016-09-02] MEDS: Chlorhexidine 0.12% 15 mL Oral Solution MT SCH ×6 (00:22→20:30)
--- NOTE | 2016-09-02 01:40 | NUR ---
P) Nutrition/Respiratory/neuro Pt. initially on tube feeding at 30ml/hr, first check of residual was 220ml, tube feeding continued per protocol. Lungs with slightly coarse breath sounds and decreased in bases bilat., suctioning thick, ames phlegm from ET tube, bowel tones decreased in lower quadrants bilat. Pupils initially unequal, L 2mm and R 3mm, at midnight check they were almost equal, pt. very sedated, titrating ativan down. I) Meds per Dr.'s orders, cont.close monitoring, attempting to wean sedation circumspectly. E) Second check of residual was 535ml and noted pt. had vomited a small amount of tube feeding, tube feed stopped, residual discarded and OG was hooked to LIS.
[2016-09-02] MEDS: Dextrose 5% 0.9% NaCl 1,000 ML IV SCH (01:58)
[2016-09-02 03:57] LABS: BASOPHILS % (AUTO) 0.2 % (0-3); EOSINOPHILS % (AUTO) 1.8 % (0-5); MONOCYTES % (AUTO) 21.4 % (4-12); Mean Corpuscular Hemoglobin 30.2 pg (27.0-35.0); Mean Corpuscular Volume 88.5 fL (81-100); NEUTROPHILS % (AUTO) 55.9 % (40-74); Platelet Count 189 bil/L (150-400)
--- NOTE | 2016-09-02 04:35 | ABG ---
DateTimeAnalyzed 04:30:00 -_ pH ____7.443 - 7.350 7.450 pCO2 ___33.7__ -mmHg 35.0 45.0 pO2 ___71.5__ -mmHg 69.0 116 HCO3- ___22.7__ -mmol/L 22.0 26.0 ABE ___-0.5__ -mmol/L -2.0 2.0 tHb ___10.3__ -g/dL O2Hb ___93.1__ -% COHb ____0.8__ -% MetHb ____0.9__ -% sO2 ___94.7__ -% FIO2 ___40.0__ -% PEEP ____5.0__ -cmH2O Set_RR ___11.0__ -b/min Vt __480.0__ -L Drawn By MK - Date/Time Notified____ 04:35:00 -_ Spontaneous_RR ___11.0__ -b/min Oxygen Device 1 VENTILATOR - B 761 -mmHg tO2 ___13.6__ -Vol% OrderingPhysicianInitials bak - Justino test _Positive -
[2016-09-02] MEDS: Dexmedetomidine 400 mCg/100 mL NS Premix IV SCH (05:26)
[2016-09-02] MEDS: Propofol Inj 1,000,000 MCG in IV Premix 1 EACH IV SCH (05:29)
[2016-09-02] MEDS ORDERED: KCl 40 mEq/D5W 500 mL 40 MEQ in IV Premix 1 EACH IV ONE (06:11)
[2016-09-02] MEDS: Thiamine Inj 200 MG in Dextrose 5% 50 ML IV SCH (07:50)
[2016-09-02] MEDS: Polyethylene Glycol (PEG) 17 Gm Powder PO SCH (07:51)
[2016-09-02] MEDS: Senna Leaf Extract 528 mg/15 mL Syrup PO SCH (07:52)
[2016-09-02] MEDS: Heparin 5,000 Unit/mL Inj SUBQ SCH ×2 (07:52→21:08)
[2016-09-02] MEDS: Acyclovir 400 mg Tablet PO SCH ×2 (07:52→20:30)
[2016-09-02] MEDS ORDERED: Erythromycin Inj 250 MG in 0.9% Sodium Chloride 100 ML IV SCH (10:30)
--- NOTE | 2016-09-02 10:55 | PROG NOTE ---
[address] [address] PROGRESS NOTE PATIENT: AMELIE SINGH : 1975 MR#: [id number] ADMIT: 08/26/2016 JOB ID: [id number] DATE: 09/02/2016 PULMONARY CRITICAL CARE PROGRESS NOTE: The patient is a 41-year-old woman with history of alcohol abuse, admitted with alcohol intoxication and lorazepam overdose, with respiratory failure. INTERVAL HISTORY: The patient remains intubated but her sedation has been weaned down significantly. So far, she is calm but not yet over breathing the ventilator. REVIEW OF SYSTEMS: Unable to obtain since patient is intubated. PHYSICAL EXAMINATION: Vital signs reviewed. T-max of 36.6, pulse 58, respirations 11, BP 95/62, sats 98% on 40% FiO2 and 5 cm of PEEP. General: Intubated, sedated. Flickers eyelids but does not open eyes or follow commands for me. Chest: Clear to auscultation bilaterally. Heart: Regular rate and rhythm. LABORATORIES: Reviewed. WBC 5.6, hemoglobin 10.2, platelets 189. Chemistry also reviewed. Creatinine is 0.5. LFT are normal. Cultures no growth on recent cultures. Last positive culture is her sputum culture from August 28 which was positive for Staph aureus, MSSA. Chest x-ray reviewed and shows a right lower lobe infiltrate as before. ET tube is a little bit high -- 6 cm from the rosa. Arterial blood gas from today reviewed and shows pH 7.44, pCO2 of 33, pO2 of 71, bicarb of 22. ASSESSMENT AND RECOMMENDATIONS: 1. Acute hypoxic respiratory failure. 2. Acute alcohol intoxication with history of longstanding alcohol abuse. 3. Methicillin-sensitive Staphylococcus aureus/aspiration pneumonia of the right lower lobe. 4. Severe sepsis. 5. Lorazepam overdose. This 41-year-old woman has been on the ventilator since August 27, 2016, following alcohol and lorazepam overdose. She has been on multiple sedative medications to keep her calm, and any attempts at weaning these have resulted in severe agitation. Currently, however, she is down to a very low dose of all her sedative meds including propofol, Precedex and fentanyl. We are going to try to decrease her respiratory rate on the ventilator, so she can over breathe and correct her respiratory alkalosis. We are going to do a spontaneous breathing trial and see if she passes this. Then, I hope we can extubate her. We may have to use antipsychotic meds to control this. I wonder if her psychosis is simply from agitation or if there is component of Wernicke encephalopathy or Korsakoff psychosis in this. She is getting a significant dose of thiamine which should be adequate to treat that possibility. We will pull back her endotracheal tube based on her chest x-ray. Her Zosyn is going to be continued for methicillin-sensitive Staphylococcus aureus in the sputum. She is on appropriate deep venous thrombosis and gastrointestinal prophylaxis. She is getting tube feeds at goal. CRITICAL CARE TIME: 45 minutes.
--- NOTE | 2016-09-02 10:55 | NUR ---
NUTRITION FOLLOW UP ASSESS: 41 YO F admitted to CCU with alcohol intoxication, requiring intubation in the ED for airway protection. Current issues include MSSA aspiration pneumonia of the right lower lobe, severe sepsis. She remains intubated related to significant agitation and inability to decrease sedation. Patient responding to Haldol better than Seroquel last night. Enteral feeding was held last night related to residuals > 600 mL. Order received to restart this morning at 30 ml/hr and advance once tolerance established. Noted that pt still has not had BM; relistor added yesterday. Plan is to add erythromycin today. PMHx: ETOH, smoking. DIET: NPO. ENTERAL FEEDING: Jevity 1.5 restarted at 30 ml/hr; goal rate 50 ml/hr. Goal rate enteral feeding will provide 1650 kcal, 103 g protein (70 g formula + 33 g ProSource), sufficient to meet 100% nutrient needs. LABS: Reviewed. Na 145, K+ 3.4, Chloride 109, BUN 3, Cr 0.55, Glu 120, Ca 8.1, Phos 5.0, Alb 2.6. MEDICATIONS: Reviewed. Thiamine, relistor, erythromycin, haldol, fentanyl. Propofol rate currently 7 mL/hr, providing 185 lipid kcal. GI: No BM since admit x 7 D. SKIN: No issues reported. Ryan 13. ANTHROPOMETRICS: Current Wt: 69.9 kg, BMI: 24.0 kg/m2, IBW: 61.4 kg , Admit wt 70 kg ESTIMATED NEEDS (VENT): Calories: 9126-0439 kcal/day (20-25 kcal/kg Admit BW) Protein: 100-120 g/day (1.5-1.8 g/kg Admit BW) Fluid: Approx. 3506-8301 ml/day (25-30 mL/kg Admit BW) NUTRITION DIAGNOSIS: 1) Inadequate oral intake related to inability to consume sufficient energy, as evidenced by NPO/vent status, high enteral feeding residuals - PERSISTS. INTERVENTION: 1) Recommend continuing to advance Jevity 1.5 toward goal rate 50 ml/hr, monitoring closely for increased GRV. 2) Hold TF if GRV reach 500 ml. Recheck after four hours. 3) Once enteral feeding well tolerated, recommend add 1 packet ProSource liquid protein TID. 4)In the event pt. unable to tolerate enteral feeding via OG tube, recommend consider small bowel tube placement. 5)Will adjust goal rate enteral feeding daily related to propofol rate. MONITOR/EVALUATE: NPO/vent status, enteral feeding rommel/adv, BM?, labs, GI/nutrition status. Follow per high nutrition risk guidelines.
--- NOTE | 2016-09-02 11:08 | NUR ---
Social Work: Continued Discharge Planning D: Pt discussed with MD. Pt currently on breathing trials and possibly to be extubated today pending status of trial. During previous attempts to wean off the vent, pt has become agitated and not following commands. MD is hopeful for extubation today or tomorrow. BLACK MILL OPERATOR spoke with pt's sister and father about continued discharge planning. They understand that they cannot involuntarily send someone to treatment however were curious about process if the pt were willing to go. BLACK MILL OPERATOR explained process of applying for [facility] Medicaid, completing BHO assessment and then working with pt's assigned CM to locate an inpatient bed. They understand that all of this hinges on pt's voluntary agreement to engage in treatment. Pt's current insurance ([employer]) is a managed Medicaid plan out of [place]. BLACK MILL OPERATOR also encouraged family to contact [facility] to inquire if they are able to authorize inpatient treatment in a different state until pt's [place] Medicaid is approved. They state they will do this. Pt's sister informed BLACK MILL OPERATOR that pt's mother, Erin eL, who lives in [place], is POA and would know the most about the pt's current financial status. She is requested that [facility] call her to begin Medicaid application. BLACK MILL OPERATOR spoke with [facility], provided contact information and family's request. [facility] will contact pt's POA to begin this application. A: Pt who is currently homeless. P: Evolving; BLACK MILL OPERATOR to follow up with pt post-extubation to complete CD Assesssment and discuss treatment options/provide resources. ELENO Lackey
--- NOTE | 2016-09-02 11:30 | DRSVH ---
PROCEDURE: X-RAY CHEST ONE VIEW, PORTABLE ([id number]) INDICATIONS: aspiration pneumonia TECHNIQUE: One view of the chest was acquired. COMPARISON: [facility], CR, XR CHEST 1VW (PORTABLE), 09/01/2016, 8:13. FINDINGS: Surgical changes and devices: Stable positioning of the ETT and nasogastric tube. Lungs and pleura: No pleural effusions or pneumothorax. Persistent airspace opacity within the righ t lung base and there has been interval increase in airspace opacity within the left lung base. Mediastinum: Mediastinal contours appear normal. Heart size is normal. Bones and chest wall: No suspicious bony lesions. Overlying soft tissues appear unremarkable. IMPRESSION: 1. Bibasilar airspace opacities, increased involving the left lung base consistent with worsening ate lectasis, aspiration or pneumonia. Dictated by: Ole ROSS Interpreted: Misty Harris MD on 09/02/2016 at 11:28 Transcribed by: ORION on 09/02/2016 at 11:29 Approved by: Misty Harris M.D. on 09/06/2016 at 17:23
[2016-09-02] MEDS ORDERED: Furosemide 10 mg/mL 2 mL Inj IVPUSH ONE (13:25)
[2016-09-02] MEDS ORDERED: Albuterol-Ipratropium 3 mL Inhalation Solution NEB PRN (13:25)
--- NOTE | 2016-09-02 16:49 | PCM.PNMED ---
Subjective Date of Service Sep 01, 2016 Subjective 41-year-old woman with alcoholism presents with acute alcoholic intoxication Patient is sedated, very agitated when sedation is reduced, not compliant with her verbal commands. Unable to wean lorazepam or fentanyl. Patient has had high gastric residuals and no bowel output. Exam Vital Signs Vital Sign - Last Date Time Temp Pulse Resp B/P Pulse Ox O2 Delivery O2 Flow Rate FiO2 09/01/16 16:30 36.7 57 11 114/86 97 Mechanical Ventilator 40 08/26/16 13:53 Intake and Output 08/31/16 08/31/16 09/01/16 Cumulative From/Thru 15:00 23:00 07:00 08/26/16 13:10 - 09/01/16 06:35 Intake Total 1988 ml 2542 ml 45616 ml Output Total 1460 ml 1550 ml 46230 ml Balance 528 ml 992 ml 8906 ml Intake Oral 530 ml IV Total 1758 ml 1944 ml 43208 ml Tube Feeding 170 ml 507 ml 941 ml Tube Irrigant 60 ml 91 ml 471 ml Output Urine Total 750 ml 1550 ml 9400 ml Gastric Drainage Total 710 ml 1640 ml # Bowel Movements 0 0 0 Exam General: Generally healthy-appearing, intubated, sedated HEENT: sclerae anicteric, no acute conjunctivitis, Neck: no apparent JVD or adenopathy Chest: Generally clear to auscultation Cardiac: S1S2, regular, no murmur Abdomen: BS normal, non-rigid Extremities: No pedal edema Neuro: Sedated, face symmetric, gaze conjugate, pupils minimally reactive 2 millimeters IVs and Medications Medications Reviewed: Medications were reviewed in detail Lab and Diagnostics DateTimeAnalyzed 18:06:00 -_ pH ____7.460 - 7.350 7.450 pCO2 ___32.2__ -mmHg 35.0 45.0 pO2 ___70.7__ -mmHg 69.0 116 FIO2 ___40.0__ -% Result Diagram: 09/01/1629909/01/16299 Microbiology Name: AMELIE SINGH Age/Sex: 41/F Attend Dr: Micah Kessler MD Acct: [id number] Unit: [id number] Status: ADM IN Location: [facility] [id number] Re08/26/16 Disch: Specimen: [id number] Collected: 08/28/16 Status: COMP Req#: [id number] Received: 08/28/16 Source: SPUTUM EXP Sp Desc : Subm Dr: Mason Kessler MD NENO CULT SPUTUM GS Final 08/28/16-125 SPT GRAM STAIN MANY POLYS MODERATE MIXED NORMAL JOSE This Spec is of good Quality and acceptable for Cult RESPIRATORY CULTURE Final 08/31/16-1204 Organism 1 STAPHYLOCOCCUS AUREUS COLONY COUNT/QUANTITY HEAVY GROWTH Organism 2 WITH NORMAL JOSE COLONY COUNT/QUANTITY MODERATE GROWTH Oxacillin Susceptible Penicillin Resistant Staph spp. are Susceptible to Penicillin stable penicillins, Blactam/Blactamase inhibitor combinations, antistaphyloccal cephems, and carbapenems. 1. STAPHYLOCOCCUS AUREUS M.I.C Interp --------- ------ * CEFAZOLIN S * CLINDAMYCIN <=0.25 S * ERYTHROMYCIN >=8 R * LINEZOLID 2 S * MOXIFLOXACIN <=0.25 S * OXACILLIN NENO 0.5 S * RIFAMPIN <=0.5 S * TETRACYCLINE <=1 S * TRIMETHOPRIM/SULFAMETHOXAZOLE <=10 S * VANCOMYCIN 1 S Specimen: [id number] Collected: 08/27/16 Status: RES Req#: [id number] Received: 08/27/16 Source: BLOOD Sp Desc : AER Subm Dr: Love Garcia DO Ordered: BC Comments: Collected by Nurse/Unit? Y/N N Procedure Result Verified Site Microbiology NENO CULTURE BLOOD Preliminary 08/31/16-850 Organism 1 STREP MITIS GROUP GRAM STAIN RESULT GRAM POSITIVE COCCI BC BOTTLE Isolated from Aerobic Bottle of Set Drawn DATE CALLED: 08/27/16 TIME CALLED: 2139 CALLED BY: [facility] FLOOR/DOCTOR: CALLISION BC READ BACK Y TYPE OF DRAW PIC LINE DRAW TIME OF POSITIVITY 2109 ALPHA HEMOLYTIC COLONIES TO BE ID (SECOND COL TYPE) Susceptibility testing to follow Requires further isolation before workup. ISOLATED FROM ONE OF TWO BOTTLES COLLECTED 08/27 1. STREP MITIS GROUP M.I.C Interp --------- ------ * AMPICILLIN <=0.25 S * CEFOTAXIME <=0.12 S * CEFTRIAXONE <=0.12 S * CLINDAMYCIN <=0.25 S * ERYTHROMYCIN 2 R * LEVOFLOXACIN 1 S * LINEZOLID <=2 S * PENICILLIN-G <=0.06 S * VANCOMYCIN 0.5 S . X-Rays, CTs and MRIs PROCEDURE: X-RAY CHEST ONE VIEW, PORTABLE ([id number]) IMPRESSION: 1. The endotracheal tube and nasogastric tube in expected position. 2. Persistent bibasilar pneumonia. Dictated by: Christi Coyne M.D. on 08/31/2016 at 10:59 PROCEDURE: X-RAY CHEST ONE VIEW, PORTABLE ([id number]) Lungs and pleura: No pleural effusions or pneumothorax. Lungs are clear. Dictated by: Misty Harris M.D. on 08/26/2016 at 14:12 . Assessment & Plan Ms. Singh is a 41-year-old woman who became unconscious in a cab ride and GCS was 8 who was admitted for alcohol intoxication, possible suicide attempt with alcohol and Ativan. Active and/or high-risk problems: #. Coma, Acute Alcohol intoxication, acute, present on admission. Active. Agitated when sedatives are decreased, moving all extremities. Ativan drip has been weaned, current sedation with Precedex, lorazepam and fentanyl. Clinically she seems at low risk of significant alcohol withdrawal. Her persistent reduced mental status raises question about acute psychotic syndrome. - We will initiate antipsychotic therapy, attempt to wean benzodiazepines and opioids - - Continue to wean sedatives and monitor neurologic exam #. Acute hypercarbic respiratory failure and intubation for airway protection. Intubated with FiO2 of 40 with PEEP of 5. - Wean as tolerated when mental status improves #. Sepsis. POA. SIRS: Heart rate 103, respiratory rate 23 on admission. Subsequently with WBC 13.9. MAXIMUM TEMPERATURE 38.4 on 08/30/16, fevers generally downtrending. Chest x-ray shows clear right lower lobe infiltrate. Staphylococcal pneumonia. Blood cultures show alpha hemolytic gram-positive coccus from aerobic bottle on 08/27. Pelvic exam performed and vaginal culture no growth so far. Vancomycin started on 08/30, discontinued 08/31 as staph aureus is beta lactam sensitive. Follow-up blood cultures were negative. - Continue Zosyn started on 08/27, - Infectious disease consult following #. Recurrent alcohol intoxication. Possible suicide attempt. A bottle of Ativan was found at her bedside -Will obtain more history and gather information in the future when patient becomes more alert and awake - We will consider psychiatry consult as she convalesces Stable, chronic and/or resolving problems: #. Thrombocytopenia. Platelet count 142 on admission 08/26, declined to 41 on , subsequently increased to 90 on 08/31. No heparin treatment. Only on Lovenox which is now discontinued. No signs of renal failure, rash, or bleeding. Anti-PF4 antibody negative. - Resolved #. Pseudo-hypocalcemia. Ionized calcium WNL. #. HIV test negative Diet: Nasogastric tube feeds, diminished rate until bowels moving with reduced gastric residuals DVT prophylaxis: lovenox scd Code Full Disposition inpatient - expect several days of further inpatient care VTE Prophylaxis: Sub-Q Enoxaparin VTE Mechanical Devices: Intermittant Pneumatic CD Resuscitation Status: CPR: Attempt Resuscitation Time spent 35 minutes Andrey Bradford MD Sep 01, 2016 18:25
[2016-09-02 16:55] LABS: APPEARANCE,URINE CLEAR (CLEAR,HAZY); COLOR,URINE YELLOW (YELLOW); OCCULT BLOOD,URINE NEGATIVE (NEGATIVE); UROBILINOGEN,URINE NORMAL (NORMAL)
--- NOTE | 2016-09-02 17:11 | PCM.PNMED ---
Subjective Date of Service Sep 02, 2016 Subjective 41-year-old woman with alcoholism presents with acute alcoholic intoxication Patient is sedated, agitated when sedation is reduced, but able to be extubated today. Patient has had high gastric residuals and no bowel output. Exam Vital Signs Vital Sign - Last Date Time Temp Pulse Resp B/P Pulse Ox O2 Delivery O2 Flow Rate FiO2 09/02/16 16:30 Supplement Oxygen 09/02/16 16:30 39.1 122 23 140/82 96 2.00 09/02/16 12:30 40 Intake and Output 09/01/16 09/01/16 09/02/16 Cumulative From/Thru 15:00 23:00 07:00 08/26/16 13:10 - 09/02/16 05:54 Intake Total 2085 ml 1884 ml 52921 ml Output Total 1800 ml 2225 ml 80538 ml Balance 285 ml -341 ml 8850 ml Intake Oral 530 ml IV Total 1503 ml 1542 ml 28376 ml Tube Feeding 522 ml 232 ml 1695 ml Tube Irrigant 60 ml 110 ml 641 ml Output Urine Total 1200 ml 1925 ml 23680 ml Gastric Drainage Total 600 ml 300 ml 2540 ml # Bowel Movements 0 Exam General: Generally healthy-appearing, sedated, not responding to verbal stimulation HEENT: sclerae anicteric, mucosa moist Neck: no apparent JVD or adenopathy Chest: Generally clear to auscultation Cardiac: S1S2, regular, no murmur Abdomen: BS reduced, non-rigid Extremities: No pedal edema Neuro: Sedated, face symmetric, gaze conjugate, pupils minimally reactive 2 millimeters, moves 4 extremities with normal strength IVs and Medications Medications Reviewed: Medications were reviewed in detail Lab and Diagnostics Result Diagram: 09/02/1630209/02/16302 Microbiology Name: AMELIE SINGH Age/Sex: 41/F Attend Dr: Micah Kessler MD Acct: [id number] Unit: [id number] Status: ADM IN Location: CCU [id number] Re08/26/16 Disch: Specimen: [id number] Collected: 08/28/16 Status: COMP Req#: [id number] Received: 08/28/16 Source: SPUTUM EXP Sp Desc : Subm Dr: Mason Kessler MD NENO CULT SPUTUM GS Final 08/28/16 SPT GRAM STAIN MANY POLYS MODERATE MIXED NORMAL JOSE This Spec is of good Quality and acceptable for Cult RESPIRATORY CULTURE Final 08/31/16 Organism 1 STAPHYLOCOCCUS AUREUS COLONY COUNT/QUANTITY HEAVY GROWTH Organism 2 WITH NORMAL JOSE COLONY COUNT/QUANTITY MODERATE GROWTH Oxacillin Susceptible Penicillin Resistant Staph spp. are Susceptible to Penicillin stable penicillins, Blactam/Blactamase inhibitor combinations, antistaphyloccal cephems, and carbapenems. 1. STAPHYLOCOCCUS AUREUS M.I.C Interp --------- ------ * CEFAZOLIN S * CLINDAMYCIN <=0.25 S * ERYTHROMYCIN >=8 R * LINEZOLID 2 S * MOXIFLOXACIN <=0.25 S * OXACILLIN NENO 0.5 S * RIFAMPIN <=0.5 S * TETRACYCLINE <=1 S * TRIMETHOPRIM/SULFAMETHOXAZOLE <=10 S * VANCOMYCIN 1 S Specimen: [id number] Collected: 08/27/16 Status: RES Req#: [id number] Received: 08/27/16 Source: BLOOD Sp Desc : AER Subm Dr: Love Garcia DO Ordered: Comments: Collected by Nurse/Unit? Y/N N Procedure Result Verified Site Microbiology NENO CULTURE BLOOD Preliminary 08/31/16-0851 Organism 1 STREP MITIS GROUP GRAM STAIN RESULT GRAM POSITIVE COCCI BC BOTTLE Isolated from Aerobic Bottle of Set Drawn DATE CALLED: 08/27/16 TIME CALLED: 2139 CALLED BY: [facility] FLOOR/DOCTOR: CALLISION BC READ BACK Y TYPE OF DRAW PIC LINE DRAW TIME OF POSITIVITY 2109 ALPHA HEMOLYTIC COLONIES TO BE ID (SECOND COL TYPE) Susceptibility testing to follow Requires further isolation before workup. ISOLATED FROM ONE OF TWO BOTTLES COLLECTED 08/27 1. STREP MITIS GROUP M.I.C Interp --------- ------ * AMPICILLIN <=0.25 S * CEFOTAXIME <=0.12 S * CEFTRIAXONE <=0.12 S * CLINDAMYCIN <=0.25 S * ERYTHROMYCIN 2 R * LEVOFLOXACIN 1 S * LINEZOLID <=2 S * PENICILLIN-G <=0.06 S * VANCOMYCIN 0.5 S . X-Rays, CTs and MRIs PROCEDURE: X-RAY CHEST ONE VIEW, PORTABLE ([id number]) IMPRESSION: 1. The endotracheal tube and nasogastric tube in expected position. 2. Persistent bibasilar pneumonia. Dictated by: Christi Coyne M.D. on 08/31/2016 at 10:59 PROCEDURE: X-RAY CHEST ONE VIEW, PORTABLE ([id number]) Lungs and pleura: No pleural effusions or pneumothorax. Lungs are clear. Dictated by: Misty Harris M.D. on 08/26/2016 at 14:12 . Assessment & Plan Ms. Singh is a 41-year-old woman who became unconscious in a cab ride and GCS was 8 who was admitted for alcohol intoxication, possible suicide attempt with alcohol and Ativan. Active and/or high-risk problems: #. Coma, Acute Alcohol intoxication, acute, present on admission. Active. Agitated when sedatives are decreased, moving all extremities. Low risk for alcohol withdrawal, as she was in rehabilitation prior to admission. Alcohol intoxication seems to been acute only. Her persistent reduced mental status raises question about acute psychotic syndrome. Haldol initiated on 09/01, clinical improvement noted. - Successfully extubated - Continue to wean sedatives and monitor neurologic exam - Continue Haldol - Discontinued thiamine and CIWA #. Sepsis. POA. SIRS: Heart rate 103, respiratory rate 23 on admission. Subsequently with WBC 13.9. MAXIMUM TEMPERATURE 38.4 on 08/30/16, fevers generally downtrending. Chest x-ray shows clear right lower lobe infiltrate. Staphylococcal pneumonia. Blood cultures show alpha hemolytic gram-positive coccus from aerobic bottle on 08/27. Pelvic exam performed and vaginal culture no growth so far. Vancomycin started on 08/30, discontinued 08/31 as staph aureus is beta lactam sensitive. Follow-up blood cultures were negative. - Continue Zosyn started on 08/27, - Infectious disease consult following #. Ileus. Not present on admission. High gastric residuals. No bowel output. - Continue methyl naltrexone - Consider erythromycin - Resume feeding when bowels are moving #. Recurrent alcohol intoxication. Possible suicide attempt. A bottle of Ativan was found at her bedside -Will obtain more history and gather information in the future when patient becomes more alert and awake - Psychiatry consult when she is responsive Stable, chronic and/or resolving problems: #. Acute hypercarbic respiratory failure and intubation for airway protection. Extubated 09/02 - Resolved #. Thrombocytopenia. Platelet count 142 on admission 08/26, declined to 41 on , subsequently increased to 90 on 08/31. No heparin treatment. Only on Lovenox which is now discontinued. No signs of renal failure, rash, or bleeding. Anti-PF4 antibody negative. - Resolved #. Pseudo-hypocalcemia. Ionized calcium WNL. #. HIV test negative Diet: Swallow evaluation in advance as tolerated DVT prophylaxis: lovenox scd Code Full Disposition inpatient - expect several days of further inpatient care VTE Prophylaxis: Sub-Q Enoxaparin VTE Mechanical Devices: Intermittant Pneumatic CD Resuscitation Status: CPR: Attempt Resuscitation Time spent 35 minutes Andrey Bradford MD Sep 02, 2016 17:11
[2016-09-02] MEDS: Acetaminophen IV 1,000 MG in IV Premix 1 EACH IV PRN (17:12)
[2016-09-02] MEDS ORDERED: 0.9% Sodium Chloride 250 ML ONE (17:13)
--- NOTE | 2016-09-02 17:29 | NUR ---
P: Alteration in neuro status I: All sedation and pain medication dc'd. Pt opens her eyes doesn't track or follow commands. Pt extubated at 1330. Sats stable on O2 at 2L/NC. NS TKO for meds. Pt very red and axillary temp 39.[address] Catherine aware and blood cultures drawn, labs drawn and urine sent for culture. IV Tylenol given. Erythromycin IV dc'd. Hector patent and drained. 3400cc of green urine. Smear of BM and lots of flatus. OGT dc'd with extubation. Family at bedside and updated on pt's condition and plan of care. ST. SCD's on. Lasix 20 mg IV given. E: Stable S: pt very restless and not following commands. Dr. mccoy and restraints on for pt safety. Frequent rounding.
[2016-09-02] MEDS ORDERED: 0.9% Sodium Chloride 1,000 ML IV SCH (17:50)
[2016-09-03] MEDS: Piperacillin-Tazo 3.375 Gm Inj 3.375 GM in Dextrose 5% Minibag Plus 50 ML IV SCH ×3 (00:25→16:31)
[2016-09-03] MEDS: Chlorhexidine 0.12% 15 mL Oral Solution MT SCH ×2 (00:26→04:30)
[2016-09-03] MEDS: Haloperidol 5 mg/mL Inj IVPUSH SCH ×3 (00:26→20:30)
[2016-09-03 00:30] VITALS: BP 170/87; PULSE 124; RESP 36; O2SAT 94
[2016-09-03 03:21] LABS: BASOPHILS % (AUTO) 0.2 % (0-3); EOSINOPHILS % (AUTO) 0 % (0-5); MONOCYTES % (AUTO) 9.9 % (4-12); Mean Corpuscular Hemoglobin 29.9 pg (27.0-35.0); Mean Corpuscular Volume 84.1 fL (81-100); NEUTROPHILS % (AUTO) 81.2 % (40-74); Platelet Count 307 bil/L (150-400)
[2016-09-03] MEDS: fentaNYL 2,500 mCg/250 mL IV Premix IV SCH (03:25)
[2016-09-03] MEDS: Acetaminophen IV 1,000 MG in IV Premix 1 EACH IV PRN (04:26)
[2016-09-03 04:30] VITALS: BP 149/94; PULSE 116; RESP 32; O2SAT 93
[2016-09-03 04:30] LABS: Magnesium 1.8 mg/dL (1.6-2.6)
[2016-09-03] MEDS ORDERED: KCl 40 mEq/500 mL D5W(K 3 - 3.7 & Creat < 2) IV ONE ×2 (05:30→14:20)
[2016-09-03] MEDS: LORazepam 100 mg/100 mL NS 100 MG in IV Premix 100 EACH IV SCH (06:12)
[2016-09-03 07:28] VITALS: BP 153/95; PULSE 118; RESP 28; O2SAT 93
[2016-09-03] MEDS: Heparin 5,000 Unit/mL Inj SUBQ SCH ×2 (07:51→20:45)
[2016-09-03] MEDS: Methylnaltrexone 12 mg/0.6 mL Inj SUBQ SCH (07:52)
[2016-09-03] MEDS: Acyclovir 400 mg Tablet PO SCH ×2 (08:01→20:30)
[2016-09-03] MEDS: Polyethylene Glycol (PEG) 17 Gm Powder PO SCH (08:05)
[2016-09-03] MEDS: Senna Leaf Extract 528 mg/15 mL Syrup PO SCH (08:05)
[2016-09-03] MEDS: Thiamine Inj 200 MG in Dextrose 5% 50 ML IV SCH (08:12)
[2016-09-03] MEDS ORDERED: cloNIDine 0.1 mg Tablet PO ONE (08:30)
--- NOTE | 2016-09-03 10:33 | NUR ---
Evaluation completed. Please go to "Notes" then click on "Assessments and Notes" (bottom left corner of screen). Then select appropriate discipline tab on top of screen.
--- NOTE | 2016-09-03 11:20 | PROG NOTE ---
[address] [address] PROGRESS NOTE PATIENT: AMELIE SINGH : 1975 MR#: [id number] ADMIT: 08/26/2016 JOB ID: [id number] DATE: 09/03/2016 PULMONARY PROGRESS NOTE: The patient is a 41-year-old woman with history of alcohol abuse admitted with alcohol intoxication, lorazepam overdose, respiratory failure. INTERVAL HISTORY: She was successfully extubated yesterday, but had a high fever to 39.1 yesterday evening. Repeat cultures were done. Today she is quite shaky, tremulous and slightly confused but trying to answer questions. REVIEW OF SYSTEMS: Denies pain, she has been shaking. She says she has a cough but denies any chest pain, shortness of breath. PHYSICAL EXAMINATION: Vital signs reviewed. T-max 39.2, current temperature 37, pulse 118, respirations 28, BP 150/90, sats 93% on 2 L nasal cannula. General: Young woman, lying in bed, lethargic but tries to open her eyes and move. She is very tremulous and shaky. Chest clear to auscultation. LABORATORIES: Reviewed. WBC up to 11.2 from 5.6. Chemistry reviewed and within normal limits. Repeat procalcitonin is down to 0.08 this morning. Cultures: No growth on blood cultures from yesterday so far. Imaging from yesterday shows dense right lower lobe infiltrate unchanged. ASSESSMENT AND RECOMMENDATIONS: 1. Acute hypoxic respiratory failure-extubated on September 02. 2. Acute alcohol intoxication with currently suspected alcohol withdrawal. 3. MSSA aspiration pneumonia of the right lower lobe. 4. Persistent fever. 5. Lorazepam overdose. This 41-year-old woman presented with acute alcohol intoxication, a lorazepam overdose requiring mechanical ventilation for respiratory failure. She was extubated on September 02. She has been having intermittent fevers practically since admission, as high as 39.2 yesterday. Cultures are pending. I am going to get a chest CT to further evaluate this area in the right lower lobe and see if there is any evidence of abscess there, especially since we are suspecting a Staph pneumonia. She is obviously in appropriate therapy with Zosyn. If the chest CT is negative, I would then consider broadening her antibiotics to something different such as vancomycin and meropenem. I would also add atypical coverage with azithromycin. Another option is to get an echocardiogram looking for any evidence of endocarditis. Drug fever is also a possibility and we can stop the Zosyn to see if that helps. She is on appropriate DVT prophylaxis. We can stop her GI prophylaxis. CRITICAL CARE TIME: 40 minutes.
[2016-09-03] MEDS: Dexmedetomidine 400 mCg/100 mL NS Premix IV SCH ×3 (12:01→21:28)
[2016-09-03 12:04] VITALS: BP 143/88; PULSE 95; RESP 26; O2SAT 94
--- NOTE | 2016-09-03 12:08 | NUR ---
NUTRITION FOLLOW UP ASSESS: 41 YO F admitted to CCU with alcohol intoxication, requiring intubation in the ED related to airway protection. Current issues include MSSA aspiration pneumonia of the right lower lobe, severe sepsis, with high fevers. She was successfully extubated yesterday; however, today she is quite shaky, tremulous and slightly confused but trying to answer questions. Speech Therapy unable to advance her diet; pt. with minimal enteral feeding x 8 D. Noted that pt has had no BM since admit x [address] ordered to determine possibility of abscess in left lower lobe. PMHx: ETOH, smoking. DIET: NPO. ENTERAL FEEDING DISCONTINUED WITH EXTUBATION: Jevity 1.5 restarted at 30 ml/hr; goal rate 50 ml/hr. Goal rate enteral feeding will provide 1650 kcal, 103 g protein (70 g formula + 33 g ProSource), sufficient to meet 100% nutrient needs. LABS: Reviewed. K+ 3.5. MEDICATIONS: Reviewed. Haldol, relistor, lasix. GI: Smear stool only, significant flatus noted. SKIN: No issues reported. Ryan 14. ANTHROPOMETRICS: Current Wt: 65.8 kg, BMI: 22.0 kg/m2, IBW: 61.4 kg , Admit wt 70 kg ESTIMATED NEEDS (CCU): Calories: 9354-7411 kcal/day (20-25 kcal/kg Admit BW) Protein: 100-120 g/day (1.5-1.8 g/kg Admit BW) Fluid: Approx. 3558-3989 ml/day (25-30 mL/kg Admit BW) NUTRITION DIAGNOSIS: 1) Inadequate oral intake related to inability to consume sufficient energy, as evidenced by NPO status, minimal nutrition x 8 D - PERSISTS. INTERVENTION: 1) In the event diet unable to be advanced over weekend, recommend restart enteral feeding per previous recommendations. 2)In the event pt. unable to tolerate enteral feeding via OG tube, recommend consider small bowel tube placement. MONITOR/EVALUATE: NPO status, diet advance, PO intake, labs, GI/nutrition status. Follow per high nutrition risk guidelines.
[2016-09-03 15:58] VITALS: BP 125/87; PULSE 75; RESP 24; O2SAT 95
--- NOTE | 2016-09-03 16:34 | PCM.PNMED ---
Subjective Date of Service Sep 03, 2016 Subjective 41-year-old woman with alcoholism presents with acute alcoholic intoxication and subsequent alcohol withdrawal Patient is sedated, agitated and tremulous. She is responsive to verbal stimulation but with a very soft voice. She seems oriented but not highly engaged in her care. Exam Vital Signs Vital Sign - Last Date Time Temp Pulse Resp B/P Pulse Ox O2 Delivery O2 Flow Rate FiO2 09/03/16 12:04 37.1 95 26 143/88 94 Nasal Cannula 2.00 09/02/16 12:30 40 Intake and Output 09/02/16 09/02/16 09/03/16 Cumulative From/Thru 15:00 23:00 07:00 08/26/16 13:10 - 09/03/16 06:25 Intake Total 1049 ml 331 ml 41054 ml Output Total 3900 ml 1250 ml 01582 ml Balance -2851 ml -919 ml 5080 ml Intake Oral 530 ml IV Total 1049 ml 331 ml 03090 ml Tube Feeding 1695 ml Tube Irrigant 641 ml Output Urine Total 3400 ml 1250 ml 12819 ml Gastric Drainage Total 500 ml 3040 ml # Bowel Movements 0 0 Exam General: Disheveled appearing, limited response to verbal stimulation HEENT: sclerae anicteric, mucosa moist Neck: Supple, no adenopathy Chest: Generally clear to auscultation; no focal crackles or dullness; poorly cooperative with inspiration Cardiac: S1S2, regular, no murmur Abdomen: BS reduced, non-rigid Extremities: No pedal edema Neuro: face symmetric, gaze conjugate, moves 4 extremities with normal strength IVs and Medications Medications Reviewed: Medications were reviewed in detail Lab and Diagnostics Procalcitonin: 0.07 on 08/28; 0.1 on 08/29; 0.08 on 09/03 Result Diagram: 09/03/16 0259 09/03/16 1114 Microbiology Name: AMELIE SINGH Age/Sex: 41/F Attend Dr: Micah Kessler MD Acct: [id number] Unit: [id number] Status: ADM IN Location: [facility] [id number] Re08/26/16 Disch: Specimen: [id number] Collected: 08/28/16 Status: COMP Req#: [id number] Received: 08/28/16 Source: SPUTUM EXP Sp Desc : Subm Dr: Mason Kessler MD NENO CULT SPUTUM GS Final 08/28/16 SPT GRAM STAIN MANY POLYS MODERATE MIXED NORMAL JOSE This Spec is of good Quality and acceptable for Cult RESPIRATORY CULTURE Final 08/31/16 Organism 1 STAPHYLOCOCCUS AUREUS COLONY COUNT/QUANTITY HEAVY GROWTH Organism 2 WITH NORMAL JOSE COLONY COUNT/QUANTITY MODERATE GROWTH Oxacillin Susceptible Penicillin Resistant Staph spp. are Susceptible to Penicillin stable penicillins, Blactam/Blactamase inhibitor combinations, antistaphyloccal cephems, and carbapenems. 1. STAPHYLOCOCCUS AUREUS M.I.C Interp --------- ------ * CEFAZOLIN S * CLINDAMYCIN <=0.25 S * ERYTHROMYCIN >=8 R * LINEZOLID 2 S * MOXIFLOXACIN <=0.25 S * OXACILLIN NENO 0.5 S * RIFAMPIN <=0.5 S * TETRACYCLINE <=1 S * TRIMETHOPRIM/SULFAMETHOXAZOLE <=10 S * VANCOMYCIN 1 S Specimen: [id number] Collected: 08/27/16 Status: RES Req#: [id number] Received: 08/27/16 Source: BLOOD Sp Desc : AER Subm Dr: Love Garcia DO Ordered: Comments: Collected by Nurse/Unit? Y/N N Procedure Result Verified Site Microbiology NENO CULTURE BLOOD Preliminary 08/31/16-0851 Organism 1 STREP MITIS GROUP GRAM STAIN RESULT GRAM POSITIVE COCCI BC BOTTLE Isolated from Aerobic Bottle of Set Drawn DATE CALLED: 08/27/16 TIME CALLED: 2139 CALLED BY: [facility] FLOOR/DOCTOR: CALLISION BC READ BACK Y TYPE OF DRAW PIC LINE DRAW TIME OF POSITIVITY 2109 ALPHA HEMOLYTIC COLONIES TO BE ID (SECOND COL TYPE) Susceptibility testing to follow Requires further isolation before workup. ISOLATED FROM ONE OF TWO BOTTLES COLLECTED 08/27 1. STREP MITIS GROUP M.I.C Interp --------- ------ * AMPICILLIN <=0.25 S * CEFOTAXIME <=0.12 S * CEFTRIAXONE <=0.12 S * CLINDAMYCIN <=0.25 S * ERYTHROMYCIN 2 R * LEVOFLOXACIN 1 S * LINEZOLID <=2 S * PENICILLIN-G <=0.06 S * VANCOMYCIN 0.5 S . X-Rays, CTs and MRIs PROCEDURE: X-RAY CHEST ONE VIEW, PORTABLE ([id number]) IMPRESSION: 1. Bibasilar airspace opacities, increased involving the left lung base consistent with worsening atelectasis, aspiration or pneumonia. Dictated by: Ole Encarnacion RRA Interpreted: Misty Harris MD on 09/02/2016 at 11: 28 PROCEDURE: X-RAY CHEST ONE VIEW, PORTABLE ([id number]) IMPRESSION: 1. The endotracheal tube and nasogastric tube in expected position. 2. Persistent bibasilar pneumonia. Dictated by: Christi Coyne M.D. on 08/31/2016 at 10:59 PROCEDURE: X-RAY CHEST ONE VIEW, PORTABLE ([id number]) Lungs and pleura: No pleural effusions or pneumothorax. Lungs are clear. Dictated by: Misty Harris M.D. on 08/26/2016 at 14:12 . Assessment & Plan Ms. Singh is a 41-year-old woman who became unconscious in a cab ride and GCS was 8 who was admitted for alcohol intoxication, possible suicide attempt with alcohol and Ativan. Active and/or high-risk problems: #. Toxic encephalopathy, alcohol withdrawal, Acute Alcohol intoxication, acute , present on admission. Active. Required high-dose sedatives when she was ventilated. Haldol initiated on 09/01, clinical improvement noted. Now increasingly tremulous. She is probably now in alcohol/benzodiazepine withdrawal after her acute intoxication and extended sedation on Ativan. She received 1 week of daily thiamine infusion. - Continue to wean sedatives and monitor neurologic exam - Continue Haldol - Continue Ativan and CIWA; taper benzos as tolerated #. Sepsis. POA. SIRS: Heart rate 103, respiratory rate 23 on admission. Subsequently WBC yessenia to 13.9, then subsided for 4 days, now has risen to 11.2 on 09/03. MAXIMUM TEMPERATURE 39.1 on 09/02/16, fevers persistent. Her calcitonin has been surprisingly stable and not highly elevated. Chest x-ray shows progressively worsening right lower lobe infiltrate. Staphylococcal pneumonia. Blood cultures showed alpha hemolytic strep mitis from aerobic bottle on 08/27. Follow-up blood cultures were negative. Pelvic exam performed and vaginal culture no growth so far. Vancomycin started on 08/30, discontinued as staph aureus is beta lactam sensitive. - Continue Zosyn started on 08/27, adequate coverage for MSSA - Repeat chest CT today looking for complicated pneumonia findings - Consider other sources of persistent fever #. Ileus. Not present on admission. NG tube with tube feedings, now discontinued as patient is extubated. -Follow with initiation of oral diet after she is cleared by speech therapy Stable, chronic and/or resolving problems: #. Psychiatric disorder, acute on chronic. Recurrent alcohol intoxication. Possible suicide attempt. A bottle of Ativan was found at her bedside -Will obtain more history and gather information in the future when patient becomes more alert and awake - Psychiatry consult when she is responsive #. Acute hypercarbic respiratory failure and intubation for airway protection. Extubated 09/02 - Resolved #. Thrombocytopenia. Platelet count 142 on admission 08/26, declined to 41 on , subsequently increased to 90 on 08/31. No heparin treatment. Only on Lovenox which is now discontinued. No signs of renal failure, rash, or bleeding. Anti-PF4 antibody negative. - Resolved #. Pseudo-hypocalcemia. Ionized calcium WNL. #. HIV test negative Diet: Swallow evaluation in advance as tolerated DVT prophylaxis: lovenox scd Code Full Disposition inpatient - expect several days of further inpatient care VTE Prophylaxis: Sub-Q Enoxaparin VTE Mechanical Devices: Intermittant Pneumatic CD Resuscitation Status: CPR: Attempt Resuscitation Time spent 35 minutes Andrey Bradford MD Sep 03, 2016 16:34
--- NOTE | 2016-09-03 17:22 | DRSVH ---
PROCEDURE: CT CHEST WITH CONTRAST ([id number]) INDICATIONS: persistent fever. RLL infiltrate- ?abscess TECHNIQUE: After the administration of intravenous contrast, 5 mm thick sections acquired from the pulmonary api virgen to the posterior costophrenic angles. 7 mm thick coronal and sagittal MIP reformats were acquire d. For radiation dose reduction, the following was used: automated exposure control, adjustment of mA and/or kV according to patient size. COMPARISON: None. FINDINGS: Image quality: Excellent. Lungs and pleura: There is a pneumonia pattern involving the lung bases posteriorly bilaterally, and also within the right middle lobe inferiorly but no pulmonary infarction or abscess formation is ina pected. No pleural effusions on the left or pneumothorax bilaterally but there is a very small right effusion. Central and peripheral airways are patent and normal in caliber. Mediastinum: Heart size is normal. No pericardial effusion. No mediastinal or hilar adenopathy by size criteria. Thoracic aorta and central pulmonary arteries are normal in size. Esophagus is dulce maria l in caliber. Note is made of what appears to be a moderate sized hiatal hernia. Bones and chest wall: No suspicious bony lesions. No vertebral body compression fractures. No axil vivian or supraclavicular adenopathy by size criteria. Thyroid gland appears normal. Abdomen: Visualized upper abdominal solid organs appear normal. Upper abdominal bowel loops are nor mal in caliber. IMPRESSION: Moderate size hiatal hernia. It is unlikely that the thickening of the esophagogastric junction region would represent underlying malignancy but followup by elective upper GI examination m ay be warranted to assess for aspiration and possible mass lesion or inflammatory process involving t he distal esophagus. Dictated by: Alfie Maldonado M.D. on 09/03/2016 at 17:17 Approved by: Alfie Maldonado M.D. on 09/03/2016 at 17:20
--- NOTE | 2016-09-03 18:17 | NUR ---
Agitation Patient appeared restless and was attempting to get out of bed, patient also had significant tremors. Agitation increased throughout the morning - consulted with MD patient remained in wrist restrains and was given 2mg IV Ativan. Patient calm down for about 15min after which time she continued behavior described above. Patient was given second dose of 2mg IV Ativan with similar results- this was related to the attending MD. Patient was given a third dose of 2mg IV Ativan with no change in behavior- patient was started on Precedex drip. She required higher dosage of Precedex IV between 1.1 and 1.2mcg/kg/h but was able to relax- consulted with MD. Patient continued to be able to respond to verbal commands by opening here eyes. She was able to node her head to yes/no questions but not constantly- continue precede drip, continue Ativan IV PRN to prevent seizure/increase of withdrawal symptoms.
[2016-09-03 20:30] VITALS: BP 131/87; PULSE 61; RESP 26; O2SAT 96
[2016-09-03] MEDS ORDERED: 0.9% Sodium Chloride 250 ML ONE (21:26)
[2016-09-04 00:30] VITALS: BP 136/93; PULSE 66; RESP 30; O2SAT 93
[2016-09-04] MEDS: Piperacillin-Tazo 3.375 Gm Inj 3.375 GM in Dextrose 5% Minibag Plus 50 ML IV SCH ×3 (00:46→15:37)
[2016-09-04] MEDS: fentaNYL 2,500 mCg/250 mL IV Premix IV SCH (03:25)
[2016-09-04 04:30] VITALS: BP 135/94; PULSE 78; RESP 26; O2SAT 94
[2016-09-04 05:02] LABS: Magnesium 1.9 mg/dL (1.6-2.6)
[2016-09-04] MEDS: Dexmedetomidine 400 mCg/100 mL NS Premix IV SCH ×3 (05:10→16:47)
[2016-09-04] MEDS: LORazepam 100 mg/100 mL NS 100 MG in IV Premix 100 EACH IV SCH (06:12)
[2016-09-04 07:57] VITALS: BP 129/88; PULSE 62; RESP 24; O2SAT 94
[2016-09-04] MEDS: Thiamine Inj 200 MG in Dextrose 5% 50 ML IV SCH (07:58)
[2016-09-04] MEDS: Acyclovir 400 mg Tablet PO SCH ×2 (08:30→20:30)
[2016-09-04] MEDS: Senna Leaf Extract 528 mg/15 mL Syrup PO SCH (08:30)
[2016-09-04] MEDS: Polyethylene Glycol (PEG) 17 Gm Powder PO SCH ×2 (08:30→19:46)
[2016-09-04] MEDS: Haloperidol 5 mg/mL Inj IVPUSH SCH ×2 (08:39→20:04)
[2016-09-04] MEDS: Heparin 5,000 Unit/mL Inj SUBQ SCH ×2 (08:40→20:04)
[2016-09-04] MEDS: D5 0.45% NaCl + KCl 20 mEq/L 1,000 ML IV SCH ×2 (10:05→19:45)
[2016-09-04 10:22] LABS: BASOPHILS % (AUTO) 0.2 % (0-3); EOSINOPHILS % (AUTO) 0.8 % (0-5); MONOCYTES % (AUTO) 6.1 % (4-12); Mean Corpuscular Hemoglobin 29.8 pg (27.0-35.0); Mean Corpuscular Volume 88.2 fL (81-100); NEUTROPHILS % (AUTO) 81.4 % (40-74); Platelet Count 388 bil/L (150-400)
[2016-09-04 11:50] VITALS: BP 143/82; PULSE 49; RESP 25; O2SAT 97
--- NOTE | 2016-09-04 15:27 | PCM.PNMED ---
Subjective Date of Service Sep 04, 2016 Subjective 41-year-old woman with severe recurrent alcoholism presents with acute alcoholic intoxication and subsequent alcohol withdrawal Patient is agitated and tremulous. Clinical impression is persistent alcohol and benzodiazepine withdrawal. She is responsive to verbal stimulation but with a very soft voice. She is not highly engaged in her care. Exam Vital Signs Vital Sign - Last Date Time Temp Pulse Resp B/P Pulse Ox O2 Delivery O2 Flow Rate FiO2 09/04/16 11:50 36.7 49 25 143/82 97 Nasal Cannula 2.00 09/02/16 12:30 40 Intake and Output 09/03/16 09/03/16 09/04/16 Cumulative From/Thru 15:00 23:00 07:00 08/26/16 13:10 - 09/04/16 06:25 Intake Total 858 ml 341 ml 93135 ml Output Total 725 ml 1550 ml 12501 ml Balance 133 ml -1209 ml 4004 ml Intake Oral 530 ml IV Total 858 ml 341 ml 21236 ml Tube Feeding 1695 ml Tube Irrigant 641 ml Output Urine Total 725 ml 1550 ml 83196 ml Gastric Drainage Total 3040 ml # Bowel Movements 0 0 Exam General: Disheveled appearing, opens eyes and whispers to verbal stimulation HEENT: sclerae anicteric, mucosa moist Neck: Supple, no adenopathy Chest: Generally clear to auscultation; no focal crackles Cardiac: S1S2, regular, no murmur Abdomen: BS present, non-rigid Extremities: No pedal edema Neuro: face symmetric, gaze conjugate, moves 4 extremities with normal strength IVs and Medications Medications Reviewed: Medications were reviewed in detail Lab and Diagnostics Result Diagram: 09/04/16 1018 09/04/16 1018 Microbiology Name: AMELIE SINGH Age/Sex: 41/F Attend Dr: Micah Kessler MD Acct: [id number] Unit: [id number] Status: ADM IN Location: U [id number] Re08/26/16 Disch: Specimen: [id number] Collected: 08/28/16 Status: COMP Req#: [id number] Received: 08/28/16 Source: SPUTUM EXP Sp Desc : Subm Dr: Mason Kessler MD NENO CULT SPUTUM GS Final 08/28/16125 SPT GRAM STAIN MANY POLYS MODERATE MIXED NORMAL JOSE This Spec is of good Quality and acceptable for Cult RESPIRATORY CULTURE Final 08/31/16 Organism 1 STAPHYLOCOCCUS AUREUS COLONY COUNT/QUANTITY HEAVY GROWTH Organism 2 WITH NORMAL JOSE COLONY COUNT/QUANTITY MODERATE GROWTH Oxacillin Susceptible Penicillin Resistant Staph spp. are Susceptible to Penicillin stable penicillins, Blactam/Blactamase inhibitor combinations, antistaphyloccal cephems, and carbapenems. 1. STAPHYLOCOCCUS AUREUS M.I.C Interp --------- ------ * CEFAZOLIN S * CLINDAMYCIN <=0.25 S * ERYTHROMYCIN >=8 R * LINEZOLID 2 S * MOXIFLOXACIN <=0.25 S * OXACILLIN NENO 0.5 S * RIFAMPIN <=0.5 S * TETRACYCLINE <=1 S * TRIMETHOPRIM/SULFAMETHOXAZOLE <=10 S * VANCOMYCIN 1 S Specimen: [id number] Collected: 08/27/16 Status: RES Req#: [id number] Received: 08/27/16 Source: BLOOD Sp Desc : AER Subm Dr: Love Garcia DO Ordered: LEOBARDO Comments: Collected by Nurse/Unit? Y/N N Procedure Result Verified Site Microbiology NENO CULTURE BLOOD Preliminary 08/31/16-0851 Organism 1 STREP MITIS GROUP GRAM STAIN RESULT GRAM POSITIVE COCCI BC BOTTLE Isolated from Aerobic Bottle of Set Drawn DATE CALLED: 08/27/16 TIME CALLED: 2139 CALLED BY: [facility] FLOOR/DOCTOR: CALLISION BC READ BACK Y TYPE OF DRAW PIC LINE DRAW TIME OF POSITIVITY 2109 ALPHA HEMOLYTIC COLONIES TO BE ID (SECOND COL TYPE) Susceptibility testing to follow Requires further isolation before workup. ISOLATED FROM ONE OF TWO BOTTLES COLLECTED 08/27 1. STREP MITIS GROUP M.I.C Interp --------- ------ * AMPICILLIN <=0.25 S * CEFOTAXIME <=0.12 S * CEFTRIAXONE <=0.12 S * CLINDAMYCIN <=0.25 S * ERYTHROMYCIN 2 R * LEVOFLOXACIN 1 S * LINEZOLID <=2 S * PENICILLIN-G <=0.06 S * VANCOMYCIN 0.5 S . X-Rays, CTs and MRIs PROCEDURE: CT CHEST WITH CONTRAST ([id number]) Lungs and pleura: There is a pneumonia pattern involving the lung bases posteriorly bilaterally, and also within the right middle lobe inferiorly but no pulmonary infarction or abscess formation is suspected. No pleural effusions on the left or pneumothorax bilaterally but there is a very small right effusion. Central and peripheral airways are patent and normal in caliber. IMPRESSION: Moderate size hiatal hernia. It is unlikely that the thickening of the esophagogastric junction region would represent underlying malignancy but followup by elective upper GI examination may be warranted to assess for aspiration and possible mass lesion or inflammatory process involving the distal esophagus. Dictated by: Alfie Maldonado M.D. on 09/03/2016 at 17:17 PROCEDURE: X-RAY CHEST ONE VIEW, PORTABLE ([id number]) IMPRESSION: 1. Bibasilar airspace opacities, increased involving the left lung base consistent with worsening atelectasis, aspiration or pneumonia. Dictated by: Ole GEORGE Interpreted: Misty Harris MD on 09/02/2016 at 11: 28 PROCEDURE: X-RAY CHEST ONE VIEW, PORTABLE ([id number]) IMPRESSION: 1. The endotracheal tube and nasogastric tube in expected position. 2. Persistent bibasilar pneumonia. Dictated by: Christi Coyne M.D. on 08/31/2016 at 10:59 PROCEDURE: X-RAY CHEST ONE VIEW, PORTABLE ([id number]) Lungs and pleura: No pleural effusions or pneumothorax. Lungs are clear. Dictated by: Misty Harris M.D. on 08/26/2016 at 14:12 . Assessment & Plan Ms. Singh is a 41-year-old woman who became unconscious in a cab ride and GCS was 8 who was admitted for alcohol intoxication, possible suicide attempt with alcohol and Ativan. Active and/or high-risk problems: #. Toxic encephalopathy, alcohol withdrawal, Acute Alcohol intoxication, acute , present on admission. Active. Required high-dose sedatives when she was ventilated. Haldol initiated on 09/01. Benzodiazepine subsequently weaned, then patient has been increasingly tremulous since 09/02. She is probably now in alcohol/benzodiazepine withdrawal after her acute intoxication and extended sedation on Ativan. She received 1 week of daily thiamine infusion. Currently requiring dexmedetomidine and lorazepam. - Continue to wean benzodiazepines sedatives and monitor neurologic exam - Continue Haldol, dexmedetomidine #. Sepsis. POA. SIRS: Heart rate 103, respiratory rate 23 on admission. Initial impression was probable aspiration pneumonia. Copious yellow phlegm with MSSA on culture. Generally stable until recurrent fevers on 09/02. Subsequently WBC now has risen to 13.2 on 09/04. MAXIMUM TEMPERATURE 38.2 on , fevers now seem to be subsiding. Her calcitonin has been surprisingly stable and not highly elevated. Chest x-ray shows progressively worsening bibasilar lower lobe infiltrate. Staphylococcal pneumonia. Blood cultures showed alpha hemolytic strep mitis from aerobic bottle on 08/27. Follow-up blood cultures were negative. Pelvic exam performed and vaginal culture no growth so far. Vancomycin started on 08/30, discontinued 08/31 as staph aureus is beta lactam sensitive. Chest CT was performed 09/04 to look for complicated pneumonic process, but was unremarkable. - Continue Zosyn started on 08/27, deemed to be adequate coverage for MSSA pneumonia - Follow fever but currently seems to be improving - Pulmonology service is following #. Ileus. Not present on admission. NG tube with tube feedings, now discontinued as patient is extubated. -Follow with initiation of oral diet after she is cleared by speech therapy #. Swallowing dysfunction. Patient is poorly alert and oriented and unable to swallow safely. She was fed with tube feeds but experience high gastric residuals. She has had significant obstipation but bowel sounds are present and abdomen is nonacute. - Managed with parenteral meds - Rectal therapy for constipation Stable, chronic and/or resolving problems: #. Psychiatric disorder, acute on chronic. Recurrent alcohol intoxication. Possible suicide attempt. A bottle of Ativan was found at her bedside. Her mother is engaged and there may be some plan for discharge to inpatient rehabilitation on a voluntary basis as directed by her family. -Will obtain more history and gather information in the future when patient becomes more alert and awake - Psychiatry consult when she is responsive #. Acute hypercarbic respiratory failure and intubation for airway protection. Extubated 09/02 - Resolved #. Thrombocytopenia. Platelet count 142 on admission 08/26, declined to 41 on , subsequently increased to 90 on 08/31. No heparin treatment. Only on Lovenox which is now discontinued. No signs of renal failure, rash, or bleeding. Anti-PF4 antibody negative. - Resolved #. Pseudo-hypocalcemia. Ionized calcium WNL. #. HIV test negative Diet: Swallow evaluation in advance as tolerated DVT prophylaxis: lovenox scd Code Full Disposition inpatient - expect several days of further inpatient care VTE Prophylaxis: Sub-Q Enoxaparin VTE Mechanical Devices: Intermittant Pneumatic CD Resuscitation Status: CPR: Attempt Resuscitation Time spent 40 minutes spent in patient assessment care coordination including review of data with consultants Andrey Bradford MD Sep 04, 2016 15:27
[2016-09-04 15:37] VITALS: BP 106/70; PULSE 48; RESP 22
--- NOTE | 2016-09-04 18:15 | NUR ---
Note Precedex drip decreased to 0.6 gradually patient started to be anxious at that rate of Precedex infusion- drip was increase to 0.7 mcg/kg/h- patient relax. Patient was able to follow some simple commands and indicate he needs. She continued to have mumbles speech and was speaking with very soft voice. Patient was able to cough and deep breathe to command and indicate yes or no to some questions regarding her needs, but remained disoriented to place, time and persona. Hear rate remained SR at 60-80 while awake and SB 36-60 while asleep, BP remained stable- consulted with MD - continue treatment. Patient has had no stool since before her admit to the hospital. Patient remained NPO per her fails swallow evaluation yesterday. No speech evaluation today, unable to give PO medications- consulted with MD Dulcolax suppository was administer- no results so far today.
[2016-09-04 20:00] VITALS: BP 128/80; PULSE 71; RESP 21; O2SAT 93
[2016-09-05] VITALS (10 sets, daily range): BP systolic 107–138; BP diastolic 59–91; PULSE 57–108; RESP 14–30; O2SAT 95–97
[2016-09-05] MEDS: Dexmedetomidine 400 mCg/100 mL NS Premix IV SCH ×2 (00:35→07:37)
--- NOTE | 2016-09-05 03:21 | NUR ---
neuro pt drowsy, awakens easily to voice, roberta, precedex gtt at 0.6-0.7mcg/kg/hr, pt oriented to self/year/that she is in a hospital, pt speaks in whisper difficult to hear, pt still pulls at sheets f/c in able to reach it, very mild intermittent tremor noted, multiple oral swabs done, lip moisturizer applied, partial sponge bath given, oral care done, resp rate in teens, hob up, sats on two liters o2 per nc=mid to upper 90's, ls- faint base rhonchi, congested cough, thick yellow sputum seen on pt's gown once during shift otherwise sputum swallowed, denies sob bt present, abd round/soft, one bm, npo, denies n/v, ulises uop per f/c, denies pain tele- sb/sr hr 50-60's, bp stable, afebrile asked md if he would like to change acyclovir to iv since pt is npo, no new orders, will pass on to day rn in am, see ccu flow sheet, p:monitor resp status, wean meds as able, monitor pt's swallowing ability
[2016-09-05] MEDS: D5 0.45% NaCl + KCl 20 mEq/L 1,000 ML IV SCH ×2 (05:21→14:59)
[2016-09-05] MEDS: Methylnaltrexone 12 mg/0.6 mL Inj SUBQ SCH (07:37)
[2016-09-05] MEDS: Heparin 5,000 Unit/mL Inj SUBQ SCH ×2 (07:37→20:31)
[2016-09-05] MEDS: Haloperidol 5 mg/mL Inj IVPUSH SCH ×2 (07:37→20:30)
[2016-09-05] MEDS: Senna Leaf Extract 528 mg/15 mL Syrup PO SCH (07:38)
[2016-09-05] MEDS: Acyclovir 400 mg Tablet PO SCH (07:38)
[2016-09-05] MEDS: Polyethylene Glycol (PEG) 17 Gm Powder PO SCH ×2 (07:38→20:30)
--- NOTE | 2016-09-05 10:17 | NUR ---
NUTRITION FOLLOW UP ASSESS: 41 YO F admitted for alcohol intoxication, requiring intubation in the ED related to airway protection. Pt now extubated. Diet advanced to stimulation today per speech therapy. Pt has had minimal nutrition X 10 days. PMHx: ETOH, smoking. DIET: Stimulation. No PO intake recorded yet. ENTERAL FEEDING DISCONTINUED WITH EXTUBATION: Jevity 1.5 restarted at 30 ml/hr; goal rate 50 ml/hr. LABS: Reviewed. (09/04): Glu 111, Alb 3.1 MEDICATIONS: Reviewed. Relistor, precedex. GI: 1 BM 09/05. SKIN: No issues noted. ANTHROPOMETRICS: Current Wt: 62.2 kg, BMI: 21.5 kg/m2, IBW: 61.4 kg , Admit wt 70 kg RE-ESTIMATED NEEDS: Calories: 3657-1867 kcal/day (25-30 kcal/kg BW) Protein: 50-75 g/day (0.8-1.2 g/kg BW) Fluid: Approx. 6127-3395 ml/day (25-30 mL/kg Admit BW) NUTRITION DIAGNOSIS: 1) Inadequate oral intake related to inability to consume sufficient energy, as evidenced by minimal nutrition x 10 D -IMPROVING. INTERVENTION: 1) In the event diet unable to be advanced past stimulation, recommend restart enteral feeding. 2) Diet advance per speech therapy. MONITOR/EVALUATE: Diet advance/tolerance, PO intake, labs, GI/nutrition status. Follow per high nutrition risk guidelines.
[2016-09-05 11:40] LABS: BASOPHILS % (AUTO) 0.2 % (0-3); MONOCYTES % (AUTO) 5.4 % (4-12); Mean Corpuscular Hemoglobin 29.2 pg (27.0-35.0); Mean Corpuscular Volume 87.9 fL (81-100); NEUTROPHILS % (AUTO) 73.2 % (40-74); Platelet Count 484 bil/L (150-400)
[2016-09-05] MEDS ORDERED: Haloperidol 5 mg/mL Inj IM PRN (12:25)
--- NOTE | 2016-09-05 12:26 | PCM.PNMED ---
Subjective Date of Service Sep 05, 2016 Subjective 41-year-old woman with severe recurrent alcoholism presents with acute alcoholic intoxication and subsequent alcohol withdrawal 09/04 -Patient is agitated and tremulous. Clinical impression is persistent alcohol and benzodiazepine withdrawal. She is responsive to verbal stimulation but with a very soft voice. She is not highly engaged in her care. 09/05 - no acute events overnight - afebrile, switch acyclovir to IV today, VS stable, no reports of cp/sob - on 2L now - finished course of zoysyn, dc'd yesterday - PO acyclovir, will hold further dosing today Exam Vital Signs Vital Sign - Last Date Time Temp Pulse Resp B/P Pulse Ox O2 Delivery O2 Flow Rate FiO2 09/05/16 04:00 36.5 59 14 125/77 95 Nasal Cannula 2.00 09/02/16 12:30 40 Intake and Output 09/04/16 09/04/16 09/05/16 Cumulative From/Thru 15:00 23:00 07:00 08/26/16 13:10 - 09/05/16 05:53 Intake Total 1060 ml 1430 ml 19029 ml Output Total 600 ml 550 ml 63426 ml Balance 460 ml 880 ml 5344 ml Intake Oral 530 ml IV Total 1060 ml 1430 ml 48869 ml Tube Feeding 1695 ml Tube Irrigant 641 ml Output Urine Total 600 ml 550 ml 79147 ml Gastric Drainage Total 3040 ml # Bowel Movements 1 1 Exam General: opening eyes, sitting up, alert and whispers to verbal stimulation HEENT: sclerae anicteric, mucosa moist Neck: Supple, no adenopathy Chest: Generally clear to auscultation; no focal crackles Cardiac: S1S2, regular, no murmur Abdomen: BS present, non-rigid Extremities: No pedal edema Neuro: face symmetric, gaze conjugate, moves 4 extremities with normal strength IVs and Medications Medications Reviewed: Medications were reviewed in detail Lab and Diagnostics Result Diagram: 09/04/16 1018 09/04/16 1018 Microbiology Name: AMELIE SINGH Age/Sex: 41/F Attend Dr: Micah Kessler MD Acct: [id number] Unit: [id number] Status: ADM IN Location: [facility] [id number] Re08/26/16 Disch: Specimen: [id number] Collected: 08/28/16 Status: COMP Req#: [id number] Received: 08/28/16 Source: SPUTUM EXP Sp Desc : Subm Dr: Mason Kessler MD NENO CULT SPUTUM GS Final 08/28/16 SPT GRAM STAIN MANY POLYS MODERATE MIXED NORMAL JOSE This Spec is of good Quality and acceptable for Cult RESPIRATORY CULTURE Final 08/31/16 Organism 1 STAPHYLOCOCCUS AUREUS COLONY COUNT/QUANTITY HEAVY GROWTH Organism 2 WITH NORMAL JOSE COLONY COUNT/QUANTITY MODERATE GROWTH Oxacillin Susceptible Penicillin Resistant Staph spp. are Susceptible to Penicillin stable penicillins, Blactam/Blactamase inhibitor combinations, antistaphyloccal cephems, and carbapenems. 1. STAPHYLOCOCCUS AUREUS M.I.C Interp --------- ------ * CEFAZOLIN S * CLINDAMYCIN <=0.25 S * ERYTHROMYCIN >=8 R * LINEZOLID 2 S * MOXIFLOXACIN <=0.25 S * OXACILLIN NENO 0.5 S * RIFAMPIN <=0.5 S * TETRACYCLINE <=1 S * TRIMETHOPRIM/SULFAMETHOXAZOLE <=10 S * VANCOMYCIN 1 S Specimen: [id number] Collected: 08/27/16 Status: RES Req#: [id number] Received: 08/27/16 Source: BLOOD Sp Desc : AER Subm Dr: Love Garcia DO Ordered: LEOBARDO Comments: Collected by Nurse/Unit? Y/N N Procedure Result Verified Site Microbiology NENO CULTURE BLOOD Preliminary 08/31/16-850 Organism 1 STREP MITIS GROUP GRAM STAIN RESULT GRAM POSITIVE COCCI BC BOTTLE Isolated from Aerobic Bottle of Set Drawn DATE CALLED: 08/27/16 TIME CALLED: 2139 CALLED BY: [facility] FLOOR/DOCTOR: CALLISION BC READ BACK Y TYPE OF DRAW PIC LINE DRAW TIME OF POSITIVITY 2109 ALPHA HEMOLYTIC COLONIES TO BE ID (SECOND COL TYPE) Susceptibility testing to follow Requires further isolation before workup. ISOLATED FROM ONE OF TWO BOTTLES COLLECTED 08/27 1. STREP MITIS GROUP M.I.C Interp --------- ------ * AMPICILLIN <=0.25 S * CEFOTAXIME <=0.12 S * CEFTRIAXONE <=0.12 S * CLINDAMYCIN <=0.25 S * ERYTHROMYCIN 2 R * LEVOFLOXACIN 1 S * LINEZOLID <=2 S * PENICILLIN-G <=0.06 S * VANCOMYCIN 0.5 S . X-Rays, CTs and MRIs PROCEDURE: CT CHEST WITH CONTRAST ([id number]) Lungs and pleura: There is a pneumonia pattern involving the lung bases posteriorly bilaterally, and also within the right middle lobe inferiorly but no pulmonary infarction or abscess formation is suspected. No pleural effusions on the left or pneumothorax bilaterally but there is a very small right effusion. Central and peripheral airways are patent and normal in caliber. IMPRESSION: Moderate size hiatal hernia. It is unlikely that the thickening of the esophagogastric junction region would represent underlying malignancy but followup by elective upper GI examination may be warranted to assess for aspiration and possible mass lesion or inflammatory process involving the distal esophagus. Dictated by: Alfie Maldonado M.D. on 09/03/2016 at 17:17 PROCEDURE: X-RAY CHEST ONE VIEW, PORTABLE ([id number]) IMPRESSION: 1. Bibasilar airspace opacities, increased involving the left lung base consistent with worsening atelectasis, aspiration or pneumonia. Dictated by: Ole Encarnacion RRA Interpreted: Misty Harris MD on 09/02/2016 at 11: 28 PROCEDURE: X-RAY CHEST ONE VIEW, PORTABLE ([id number]) IMPRESSION: 1. The endotracheal tube and nasogastric tube in expected position. 2. Persistent bibasilar pneumonia. Dictated by: Christi Coyne M.D. on 08/31/2016 at 10:59 PROCEDURE: X-RAY CHEST ONE VIEW, PORTABLE ([id number]) Lungs and pleura: No pleural effusions or pneumothorax. Lungs are clear. Dictated by: Misty Harris M.D. on 08/26/2016 at 14:12 . Assessment & Plan Ms. Singh is a 41-year-old woman who became unconscious in a cab ride and GCS was 8 who was admitted for alcohol intoxication, possible suicide attempt with alcohol and Ativan. Active and/or high-risk problems: #. Toxic encephalopathy, alcohol withdrawal, Acute Alcohol intoxication, acute , present on admission. Active. Required high-dose sedatives when she was ventilated. Haldol initiated on 09/01. Benzodiazepine subsequently weaned, then patient has been increasingly tremulous since 09/02. - Recent sx of alcohol/benzodiazepine withdrawal after her acute intoxication and extended sedation on Ativan after extubation. She received 1 week of daily thiamine infusion. required dexmedetomidine and lorazepam.--> weaning precedex and scheduling lorazepam q4 today. monitor CIWA - Continue Haldol prn, and weaning dexmedetomidine #. Sepsis. POA. SIRS: Heart rate 103, respiratory rate 23 on admission. Initial impression was probable aspiration pneumonia. Copious yellow phlegm with MSSA on culture. Generally stable until recurrent fevers on 09/02. Subsequently WBC now has risen to 13.2 on 09/04. MAXIMUM TEMPERATURE 38.2 on , fevers now seem to be subsiding. Her calcitonin has been surprisingly stable and not highly elevated. Chest x-ray shows progressively worsening bibasilar lower lobe infiltrate. Staphylococcal pneumonia. Blood cultures showed alpha hemolytic strep mitis from aerobic bottle on 08/27. Follow-up blood cultures were negative. Pelvic exam performed and vaginal culture no growth so far. Vancomycin started on 08/30, discontinued 08/31 as staph aureus is beta lactam sensitive. Chest CT was performed 09/04 to look for complicated pneumonic process, but was unremarkable. - Continue Zosyn started on 08/27, deemed to be adequate coverage for MSSA pneumonia - Follow fever but currently seems to be improving - Pulmonology service is following - D/c'd acyclovir #. Ileus. Not present on admission. NG tube with tube feedings, now discontinued as patient is extubated. -Follow with initiation of oral diet after she is cleared by speech therapy #. Swallowing dysfunction. Patient is poorly alert and oriented and unable to swallow safely. She was fed with tube feeds but experience high gastric residuals. She has had significant obstipation but bowel sounds are present and abdomen is nonacute. - Managed with parenteral meds - Rectal therapy for constipation Stable, chronic and/or resolving problems: #. Psychiatric disorder, acute on chronic. Recurrent alcohol intoxication. Possible suicide attempt. A bottle of Ativan was found at her bedside. Her mother is engaged and there may be some plan for discharge to inpatient rehabilitation on a voluntary basis as directed by her family. -Will obtain more history and gather information in the future when patient becomes more alert and awake - Psychiatry consult when she is responsive #. Acute hypercarbic respiratory failure and intubation for airway protection. Extubated 09/02 - Resolved #. Thrombocytopenia. Platelet count 142 on admission 08/26, declined to 41 on , subsequently increased to 90 on 08/31. No heparin treatment. Only on Lovenox which is now discontinued. No signs of renal failure, rash, or bleeding. Anti-PF4 antibody negative. - Resolved #. Pseudo-hypocalcemia. Ionized calcium WNL. #. HIV test negative Diet: Swallow evaluation in advance as tolerated DVT prophylaxis: lovenox scd Code Full Disposition inpatient - expect several days of further inpatient care Pain Evaluation: Adequate Pain Control VTE Prophylaxis: Sub-Q Enoxaparin VTE Mechanical Devices: Intermittant Pneumatic CD Resuscitation Status: CPR: Attempt Resuscitation Time spent 45 minutes spent with jeramy and Rashad Gann DO Sep 05, 2016 08:03
--- NOTE | 2016-09-05 16:56 | NUR ---
LOC/anxiety/activity This AM, pt very sleepy but able to tell me where she was and what month. Able to independently move in bed and wakes to voice/light touch. Having intermittent anxiety and some tremors of hands/arms. Using PRN ativan as well as scheduled halidol with good effect. Pt remains calm and appropriate, using call light. Bed alarm on, family there good part of the shift. Pt able to use bedpan to have BM, able to turn herself and scoot up in bed without assistance. Frequent oral care and rounding continue.
--- NOTE | 2016-09-05 18:33 | PROG NOTE ---
[address] [address] PROGRESS NOTE PATIENT: AMELIE SINGH : 1975 MR#: [id number] ADMIT: 08/26/2016 JOB ID: [id number] DATE: 09/05/2016 PULMONARY PROGRESS NOTE: The patient is a 41-year-old woman with history of alcohol abuse admitted with alcohol intoxication, lorazepam, overdose, and respiratory failure. INTERVAL HISTORY: She was extubated on September 02 and has been doing well from a respiratory standpoint, but we have been dealing with alcohol/benzodiazepine withdrawal for the last few days. She was on Precedex infusion until this morning and she has been off completely. She is sleeping right now. Not really answering questions consistently. REVIEW OF SYSTEMS: Unable to obtain since she will not respond to all questions. Vital signs: Afebrile, pulse 58, respirations 28, BP 107/69, sats 96% on 2-3 L nasal cannula. General: Lethargic, sleeping, nods and answers some questions but for the most part does not answer my questions. Chest is clear. LABORATORIES: Reviewed. ASSESSMENT AND RECOMMENDATIONS: 1. Acute hypoxic respiratory failure. Intubated on August 26 and extubated on September 02. 2. Alcohol and benzodiazepine withdrawal--slowly improving. 3. Methicillin-sensitive Staphylococcus aureus pneumonia/aspiration pneumonia of the right lower lobe--completed treatment. 4. Lorazepam overdose. A 41-year-old woman with history of alcohol abuse, admitted with lorazepam overdose and respiratory failure, now extubated, going through alcohol and benzodiazepine withdrawal that seems to have improved. She is off Precedex. Initially, I thought she was still on it and recommended scheduled lorazepam but now that she is off it and seems kind of lethargic I think we can leave her lorazepam as p.r.n. I spoke at length to her mother at the bedside and she was concerned about the patient's difficulties with alcohol abuse over the years. Given that she came in with a lorazepam overdose, I think it would be reasonable to get a Psychiatry consult before she leaves to ensure there was no intentional self-harm planned. Today, however, she seems kind of sleepy and not very interactive. I do however recommend that she see Psychiatry perhaps tomorrow. I am going to sign off but please call me for any further questions. She did complete a course of antibiotics for her MSSA pneumonia. I recommend repeating a chest x-ray on day of discharge to establish baseline. Ideally she should also get a followup chest x-ray in a month's time with her primary care doctor to ensure complete resolution of the pneumonia.
--- NOTE | 2016-09-05 23:00 | NUR ---
IV Pt's IV infiltrated. New IV inserted in left forearm by RN Mason Dietrich
[2016-09-06] VITALS (8 sets, daily range): BP systolic 116–143; BP diastolic 72–97; PULSE 76–98; RESP 18–29; O2SAT 94–98
--- NOTE | 2016-09-06 00:19 | NUR ---
Anxiety Pt given scheduled dose of Haldol. 30 minutes post administration pt calling stating she is feeling "a lot of anxiety." Pt given PRN dose of 4mg of Ativan. Pt continues to be anxious, and restless in bed. Had not attempted to climb out of bed.
[2016-09-06] MEDS: D5 0.45% NaCl + KCl 20 mEq/L 1,000 ML IV SCH ×3 (01:35→21:35)
[2016-09-06] MEDS: Senna Leaf Extract 528 mg/15 mL Syrup PO SCH (08:30)
[2016-09-06] MEDS: Polyethylene Glycol (PEG) 17 Gm Powder PO SCH ×2 (08:30→20:30)
[2016-09-06] MEDS: Haloperidol 5 mg/mL Inj IVPUSH SCH ×2 (08:53→20:31)
[2016-09-06] MEDS: Heparin 5,000 Unit/mL Inj SUBQ SCH ×2 (08:54→20:30)
--- NOTE | 2016-09-06 10:21 | PCM.PNMED ---
Subjective Date of Service Sep 06, 2016 Subjective She notes back pain and severe anxiety. She did eat breakfast. She denies any problems with breathing or abdominal pain. She speaks in a very soft voice. Exam Vital Signs Vital Sign - Last Date Time Temp Pulse Resp B/P Pulse Ox O2 Delivery O2 Flow Rate FiO2 09/06/16 08:51 36.9 92 29 137/90 96 Room Air 09/06/16 03:06 2.00 09/05/16 23:05 96 Intake and Output 09/05/16 09/05/16 09/06/16 Cumulative From/Thru 15:00 23:00 07:00 08/26/16 13:10 - 09/06/16 05:23 Intake Total 1796 ml 1127 ml 55140 ml Output Total 2800 ml 1400 ml 56526 ml Balance -1004 ml -273 ml 4067 ml Intake Oral 640 ml 200 ml 1370 ml IV Total 1156 ml 927 ml 55147 ml Tube Feeding 1695 ml Tube Irrigant 641 ml Output Urine Total 2800 ml 1100 ml 30497 ml Gastric Drainage Total 3040 ml Other 300 ml 300 ml # Bowel Movements 1 0 2 Exam She is awake and does answer questions very soft voice voice. She does have fluent speech. Anicteric sclerae No facial droop. Neck is supple lungs are clear with normal effort. Heart is regular without murmur Abdomen soft nontender. Extremities are free of edema and good pedal pulses. Skin is free of rash or lesions. IVs and Medications Medications Reviewed: Medications were reviewed in detail Lab and Diagnostics Result Diagram: 09/05/16 1130 09/05/16 113 Microbiology Name: AMELIE SINGH Age/Sex: 41/F Attend Dr: Micah Kessler MD Acct: [id number] Unit: [id number] Status: ADM IN Location: [facility] [id number] Re08/26/16 Disch: Specimen: [id number] Collected: 08/28/16 Status: COMP Req#: [id number] Received: 08/28/16 Source: SPUTUM EXP Sp Desc : Subm Dr: Mason Kessler MD NENO CULT SPUTUM GS Final 08/28/16-1258 SPT GRAM STAIN MANY POLYS MODERATE MIXED NORMAL JOSE This Spec is of good Quality and acceptable for Cult RESPIRATORY CULTURE Final 08/31/16 Organism 1 STAPHYLOCOCCUS AUREUS COLONY COUNT/QUANTITY HEAVY GROWTH Organism 2 WITH NORMAL JOSE COLONY COUNT/QUANTITY MODERATE GROWTH Oxacillin Susceptible Penicillin Resistant Staph spp. are Susceptible to Penicillin stable penicillins, Blactam/Blactamase inhibitor combinations, antistaphyloccal cephems, and carbapenems. 1. STAPHYLOCOCCUS AUREUS M.I.C Interp --------- ------ * CEFAZOLIN S * CLINDAMYCIN <=0.25 S * ERYTHROMYCIN >=8 R * LINEZOLID 2 S * MOXIFLOXACIN <=0.25 S * OXACILLIN NENO 0.5 S * RIFAMPIN <=0.5 S * TETRACYCLINE <=1 S * TRIMETHOPRIM/SULFAMETHOXAZOLE <=10 S * VANCOMYCIN 1 S Specimen: [id number] Collected: 08/27/16 Status: RES Req#: [id number] Received: 08/27/16 Source: BLOOD Sp Desc : AER Subm Dr: Love Garcia DO Ordered: Comments: Collected by Nurse/Unit? Y/N N Procedure Result Verified Site Microbiology NENO CULTURE BLOOD Preliminary 08/31/16-850 Organism 1 STREP MITIS GROUP GRAM STAIN RESULT GRAM POSITIVE COCCI BC BOTTLE Isolated from Aerobic Bottle of Set Drawn DATE CALLED: 08/27/16 TIME CALLED: 2139 CALLED BY: [facility] FLOOR/DOCTOR: CALLISION BC READ BACK Y TYPE OF DRAW PIC LINE DRAW TIME OF POSITIVITY 2109 ALPHA HEMOLYTIC COLONIES TO BE ID (SECOND COL TYPE) Susceptibility testing to follow Requires further isolation before workup. ISOLATED FROM ONE OF TWO BOTTLES COLLECTED 08/27 1. STREP MITIS GROUP M.I.C Interp --------- ------ * AMPICILLIN <=0.25 S * CEFOTAXIME <=0.12 S * CEFTRIAXONE <=0.12 S * CLINDAMYCIN <=0.25 S * ERYTHROMYCIN 2 R * LEVOFLOXACIN 1 S * LINEZOLID <=2 S * PENICILLIN-G <=0.06 S * VANCOMYCIN 0.5 S . X-Rays, CTs and MRIs PROCEDURE: CT CHEST WITH CONTRAST ([id number]) Lungs and pleura: There is a pneumonia pattern involving the lung bases posteriorly bilaterally, and also within the right middle lobe inferiorly but no pulmonary infarction or abscess formation is suspected. No pleural effusions on the left or pneumothorax bilaterally but there is a very small right effusion. Central and peripheral airways are patent and normal in caliber. IMPRESSION: Moderate size hiatal hernia. It is unlikely that the thickening of the esophagogastric junction region would represent underlying malignancy but followup by elective upper GI examination may be warranted to assess for aspiration and possible mass lesion or inflammatory process involving the distal esophagus. Dictated by: Alfie Maldonado M.D. on 09/03/2016 at 17:17 PROCEDURE: X-RAY CHEST ONE VIEW, PORTABLE ([id number]) IMPRESSION: 1. Bibasilar airspace opacities, increased involving the left lung base consistent with worsening atelectasis, aspiration or pneumonia. Dictated by: Ole GEORGE Interpreted: Misty Harris MD on 09/02/2016 at 11: 28 PROCEDURE: X-RAY CHEST ONE VIEW, PORTABLE ([id number]) IMPRESSION: 1. The endotracheal tube and nasogastric tube in expected position. 2. Persistent bibasilar pneumonia. Dictated by: Christi Coyne M.D. on 08/31/2016 at 10:59 PROCEDURE: X-RAY CHEST ONE VIEW, PORTABLE ([id number]) Lungs and pleura: No pleural effusions or pneumothorax. Lungs are clear. Dictated by: Misty Harris M.D. on 08/26/2016 at 14:12 . Assessment & Plan Ms. Singh is a 41-year-old woman who became unconscious in a cab ride and GCS was 8 who was admitted for alcohol intoxication, possible suicide attempt with alcohol and Ativan. (Per H&P) 1. Acute alcohol withdrawal syndrome, POA. This is improving. She required mechanical ventilation for airway protection and high doses of sedation initially. She is now clearing mentally and improving. She is getting as needed doses of benzodiazepine. 2. Sepsis. POA. Resolved. SIRS: Heart rate 103, respiratory rate 23 on admission. Initial impression was probable aspiration pneumonia. Copious yellow phlegm with MSSA on culture. Generally stable until recurrent fevers on 09/02. Subsequently WBC now has risen to 13.2 on 09/04. MAXIMUM TEMPERATURE 38.2 on 09/03/16, fevers now seem to be subsiding. Her calcitonin has been surprisingly stable and not highly elevated. Chest x-ray shows progressively worsening bibasilar lower lobe infiltrate. Staphylococcal pneumonia. Blood cultures showed alpha hemolytic strep mitis from aerobic bottle on 08/27. Follow-up blood cultures were negative. Pelvic exam performed and vaginal culture no growth so far. Vancomycin started on 08/30, discontinued 08/31 as staph aureus is beta lactam sensitive. Chest CT was performed 09/04 to look for complicated pneumonic process, but was unremarkable. 3. Psychiatric disorder, acute on chronic. POA. This involves both chronic alcoholism as well as probable depression and generalized anxiety disorder. Recurrent alcohol intoxication. Possible suicide attempt. A bottle of Ativan was found at her bedside. Her mother is engaged and there may be some plan for discharge to inpatient rehabilitation on a voluntary basis as directed by her family. -Will obtain more history and gather information in the future when patient becomes more alert and awake - Psychiatry consult when she is responsive 4. Acute hypercarbic respiratory failure and intubation for airway protection. POA. Resolved. Extubated 09/02 5. Thrombocytopenia. Platelet count 142 on admission 08/26, declined to 41 on , subsequently increased to 90 on 08/31. No heparin treatment. Only on Lovenox which is now discontinued. No signs of renal failure, rash, or bleeding. Anti-PF4 antibody negative. - Resolved #. Pseudo-hypocalcemia. Ionized calcium WNL. #. HIV test negative Diet: Swallow evaluation in advance as tolerated DVT prophylaxis: lovenox scd Code Full Disposition inpatient - expect several days of further inpatient care Pain Evaluation: Adequate Pain Control VTE Prophylaxis: Sub-Q Enoxaparin VTE Mechanical Devices: Intermittant Pneumatic CD Resuscitation Status: CPR: Attempt Resuscitation Time spent 30 minutes Justino Harrison MD Sep 06, 2016 10:21
[2016-09-06] MEDS: Dexmedetomidine 400 mCg/100 mL NS Premix IV SCH (16:45)
--- NOTE | 2016-09-06 18:31 | NUR ---
PRN meds/Speech/Mentation The pt's mentation continued to improve today, and is A&O x3. She was cleared to have pureed foods with think liquids. She needed PRN ativan IVP once during the shift.
[2016-09-07] VITALS (7 sets, daily range): BP systolic 115–132; BP diastolic 72–84; PULSE 70–84; RESP 19–26; O2SAT 94–98
--- NOTE | 2016-09-07 01:32 | NUR ---
Mentation Pt speaking up and able to convey thoughts clearly. Minimal tremors. Pt drinking thin liquids without issue.
[2016-09-07] MEDS: D5 0.45% NaCl + KCl 20 mEq/L 1,000 ML IV SCH ×2 (08:17→19:36)
[2016-09-07] MEDS: Methylnaltrexone 12 mg/0.6 mL Inj SUBQ SCH (08:18)
[2016-09-07] MEDS: Polyethylene Glycol (PEG) 17 Gm Powder PO SCH ×2 (08:18→20:30)
[2016-09-07] MEDS: Haloperidol 5 mg/mL Inj IVPUSH SCH ×2 (08:18→20:52)
[2016-09-07] MEDS: Senna Leaf Extract 528 mg/15 mL Syrup PO SCH (08:18)
[2016-09-07] MEDS: Heparin 5,000 Unit/mL Inj SUBQ SCH ×2 (08:18→20:52)
--- NOTE | 2016-09-07 10:23 | PCM.PNMED ---
Subjective Date of Service Sep 07, 2016 Subjective She is more awake today. She denies any pain. No nausea vomiting. She denies any chest pain or abdominal pain. He is still somewhat confused but not hallucinating. Exam Vital Signs Vital Sign - Last Date Time Temp Pulse Resp B/P Pulse Ox O2 Delivery O2 Flow Rate FiO2 09/07/16 08:08 37.5 70 23 123/81 95 Room Air 09/06/16 03:06 2.00 09/05/16 23:05 96 Intake and Output 09/06/16 09/06/16 09/07/16 Cumulative From/Thru 15:00 23:00 07:00 08/26/16 13:10 - 09/07/16 06:47 Intake Total 1673 ml 2765 ml 49274 ml Output Total 3050 ml 800 ml 02170 ml Balance -1377 ml 1965 ml 4655 ml Intake Oral 530 ml 400 ml 2300 ml IV Total 1143 ml 2365 ml 06289 ml Tube Feeding 1695 ml Tube Irrigant 641 ml Output Urine Total 3050 ml 800 ml 76859 ml Gastric Drainage Total 3040 ml Other 300 ml # Bowel Movements 1 0 3 Exam Lethargic, fluent speech Anicteric sclerae. Neck supple. Lungs are clear with normal left great. Heart is regular without murmur gallop or rub. Abdomen is soft nontender Extremities are free of edema pedal pulses. Skin is free of rash or lesions IVs and Medications Medications Reviewed: Medications were reviewed in detail Lab and Diagnostics Result Diagram: 09/05/16 1130 09/05/16 1130 Assessment & Plan Ms. Pereira is a 41-year-old woman who became unconscious in a cab ride and GCS was 8 who was admitted for alcohol intoxication, possible suicide attempt with alcohol and Ativan. (Per H&P) 1. Acute alcohol withdrawal syndrome, POA. This continues to improve. She is more mentally coherent today. She is still not coherent enough probably for a CD evaluation. She has been in residential treatment twice in the past short period of time. Mother is in from [place] help with discharge planning assistance. So sure going meet with him today. 2. Sepsis (secondary to MSSA pneumonia, resolved). POA. Resolved. SIRS: Heart rate 103, respiratory rate 23 on admission. Initial impression was probable aspiration pneumonia. Copious yellow phlegm with MSSA on culture. Generally stable until recurrent fevers on 09/02. Subsequently WBC now has risen to 13.2 on 09/04. MAXIMUM TEMPERATURE 38.2 on 09/03/16, fevers now seem to be subsiding. Her calcitonin has been surprisingly stable and not highly elevated. Chest x-ray shows progressively worsening bibasilar lower lobe infiltrate. Staphylococcal pneumonia. Blood cultures showed alpha hemolytic strep mitis from aerobic bottle on 08/27. Follow-up blood cultures were negative. Pelvic exam performed and vaginal culture no growth so far. Vancomycin started on 08/30, discontinued 08/31 as staph aureus is beta lactam sensitive. Chest CT was performed 09/04 to look for complicated pneumonic process, but was unremarkable. 3. Psychiatric disorder, acute on chronic. POA. This involves both chronic alcoholism as well as probable depression and generalized anxiety disorder. Recurrent alcohol intoxication. Possible suicide attempt. A bottle of Ativan was found at her bedside. Her mother is engaged and there may be some plan for discharge to inpatient rehabilitation on a voluntary basis as directed by her family. -Will obtain more history and gather information in the future when patient becomes more alert and awake - Psychiatry consult likely tomorrow, September 08 4. Acute hypercarbic respiratory failure and intubation for airway protection. POA. Resolved. Extubated 09/02 5. Thrombocytopenia. Platelet count 142 on admission 08/26, declined to 41 on , subsequently increased to 90 on 08/31. No heparin treatment. Only on Lovenox which is now discontinued. No signs of renal failure, rash, or bleeding. Anti-PF4 antibody negative. - Resolved #. Pseudo-hypocalcemia. Ionized calcium WNL. #. HIV test negative Diet: Swallow evaluation in advance as tolerated DVT prophylaxis: lovenox scd Code Full Disposition inpatient - expect several days of further inpatient care Pain Evaluation: Adequate Pain Control VTE Prophylaxis: Sub-Q Enoxaparin VTE Mechanical Devices: Intermittant Pneumatic CD Resuscitation Status: CPR: Attempt Resuscitation Time spent 30 minutes. Did meet with mother and close friend for approximately 20 minutes. Justino Harrison MD Sep 07, 2016 10:23
--- NOTE | 2016-09-07 11:56 | NUR ---
NUTRITION FOLLOW UP ASSESS: 41 YO F admitted for alcohol intoxication, who required intubation in the ED related to airway protection. Pt now extubated. Per notes, pt remains somewhat confused but is more alert. Psych consult likely tomorrow. Diet advanced to puree w/ thin liquids. No PO recorded on this diet. Adequate PO intake recorded for stimulation diet. PMHx: ETOH, smoking. DIET: Pureed w/ thin liquids. PO 100% x 2 days on Stimulation. LABS: Reviewed. Glu 113 (09/05), Alb 3.1 (09/04) MEDICATIONS: Reviewed. GI: BMx1 (09/06) SKIN: Ryan 16 CURRENT WT: 64.9 kg, BMI: 22.4 kg/m2, IBW: 61.4 kg, Admit wt: 66.6 kg RE-ESTIMATED NEEDS: Calories: 2510-2041 kcal/day (25-30 kcal/kg BW) Protein: 50-75 g/day (0.8-1.2 g/kg BW) Fluid: Approx. 4274-8229 ml/day (25-30 mL/kg Admit BW) NUTRITION DIAGNOSIS: 1) Inadequate oral intake related to inability to consume sufficient energy, as evidenced by minimal nutrition x 10 D.---IMPROVING W/ DIET ADVANCEMENT. INTERVENTION: 1) Continue to monitor diet advancement per speech therapy. 2) Consider adding supplements if PO intake is 50% or less of most meals. MONITOR/EVALUATE: Diet advance/tolerance, PO intake, labs, GI/nutrition status. Follow per moderate nutrition risk guidelines. Addendum: 09/07/16 at [address] MAGA[address]A RD Student documentation reviewed and I agree with the above assessment. Mindy Magaña, MS, RDN, CD
--- NOTE | 2016-09-07 11:57 | NUR ---
Social Work Note: Continued Discharge Planning Data& Assessment: Pt is not medically ready for discharge at this time. Pt is still recovering from intubation and still groggy. NIKITA met with pt mother Erin who has flown in from [place] and pt prior inpt rehab counselor and former employer Keisha Sellers ([phone]) from [facility]. Pt mother was interested in pt being detained, SW explained criteria for detainment. SW also provided information on CD resources in the community, [facility] and the [facility] pt [facility]. Pt mother had concerns about pt strength and mobility, SW informed pt mother that PT will evaluate her and RN's have the goal of ambulating pt's as soon as possible. SW did mention the possibility of pt requiring a form of physical therapy after discharge for continued strengthening. Pt mother explained that pt has had a change in insurance effective 09/07/2016 (today). SW requested a copy of her insurance information to have updated on her chart and to help guide what services or resources would be covered for discharge planning. Pt mother debating about whether or not to move pt back to [place] with her or to let her hit "rock bottom" and be discharged back into the community at time of discharge. Keisha from [facility] inpt rehab explained she is unsure if pt will be able to return to their rehab facility or not. SW to follow up with pt regarding CD assessment and discharge planning when she is appropriate to engage in her assessment. PT evaluation is pending. SW to continue to follow. Plan: Anticipated discharge to crisis respite vs. back into the community vs. home with mother. SW to follow up with pt regarding CD assessment and discharge planning when she is appropriate to engage in her assessment. SW to follow up with pt mother regarding current insurance information. PT evaluation is pending. SW to continue to follow. ELENO Hylton
--- NOTE | 2016-09-07 13:59 | NUR ---
Evaluation completed. Please go to "Notes" then click on "Assessments and Notes" (bottom left corner of screen). Then select appropriate discipline tab on top of screen.
--- NOTE | 2016-09-07 17:45 | NUR ---
Note Patient denied having pain or discomfort throughout the shift. Patient was able to follow command and use her call light appropriately to make her need known. Up with PT to a standing position- patient was able to balance herself with some support and tolerated standing only for a short time only. Patient was able to transfer from bed to a bedside commode/chair with one persona assistance. Heart rate 70-90s, oxygen saturation 93-98% on RA. Diet advanced to regular by speech today- patient tolerated PO well.
[2016-09-08] VITALS (10 sets, daily range): BP systolic 98–125; BP diastolic 57–83; PULSE 67–87; RESP 12–25; O2SAT 95–98
[2016-09-08] MEDS: D5 0.45% NaCl + KCl 20 mEq/L 1,000 ML IV SCH ×3 (03:35→22:35)
--- NOTE | 2016-09-08 03:40 | NUR ---
DIET/MENTATION Pt A&O to self and needs. Pt anxious, but soft spoken and cooperative with care. Pt was slightly confused throughout the night, but no hallucinations noted. Pt denied any pain other than IV irritation r/t D5 1/2NS + KLC 20MeQ running at 100 ml/hr. Pt tolerated advance to general diet quite well. Pt displayed no swallowing or GI issues. Vitals stable, no other issues noted at this time.
[2016-09-08] MEDS: Haloperidol 5 mg/mL Inj IVPUSH SCH ×2 (08:59→19:45)
[2016-09-08] MEDS: Polyethylene Glycol (PEG) 17 Gm Powder PO SCH ×3 (09:04→19:54)
[2016-09-08] MEDS: Heparin 5,000 Unit/mL Inj SUBQ SCH ×2 (09:04→19:46)
[2016-09-08] MEDS: Senna Leaf Extract 528 mg/15 mL Syrup PO SCH (09:05)
--- NOTE | 2016-09-08 14:08 | NUR ---
Frequent watery stools Pt up to the bathroom frequently to have watery stools. Reviewed all medications with patient this morning and inquired about having all scheduled stool softeners this morning but patient requested to have all of them. Pt tolerating current diet without difficulty. Pt's mother at bedside. Pt has denied any pain. Pt is complaining about having a yeast infection. Paged hospitalist to notify him of pt's complaints. Cont to monitor.
--- NOTE | 2016-09-08 16:14 | PCM.PNMED ---
Subjective Date of Service Sep 08, 2016 Subjective She is very somnolent and not really communicating today. This has been the case throughout most the day. Subjective and ROS are not obtainable. She was able to get up and go to the bathroom at one point. Exam Vital Signs Vital Sign - Last Date Time Temp Pulse Resp B/P Pulse Ox O2 Delivery O2 Flow Rate FiO2 09/08/16 15:27 87 18 98/57 96 Room Air 09/08/16 11:31 37.2 09/06/16 03:06 2.00 09/05/16 23:05 96 Intake and Output 09/07/16 09/07/16 09/08/16 Cumulative From/Thru 15:00 23:00 07:00 08/26/16 13:10 - 09/08/16 06:30 Intake Total 2405 ml 1200 ml 46093 ml Output Total 2550 ml 2500 ml 05980 ml Balance -145 ml -1300 ml 3210 ml Intake Oral 1220 ml 800 ml 4320 ml IV Total 1185 ml 400 ml 17588 ml Tube Feeding 1695 ml Tube Irrigant 641 ml Output Urine Total 2550 ml 2500 ml 87047 ml Gastric Drainage Total 3040 ml Other 300 ml # Bowel Movements 1 0 4 Exam Somnolent, in no acute distress. Lungs are clear with normal effort. Heart is regular without murmur gallop or rub. Abdomen is soft. Extremities are free edema good pedal pulses. No skin rash. IVs and Medications Medications Reviewed: Medications were reviewed in detail Lab and Diagnostics Result Diagram: 09/05/16 1130 09/05/16 1130 Assessment & Plan Ms. Pereira is a 41-year-old woman who became unconscious in a cab ride and GCS was 8 who was admitted for alcohol intoxication, possible suicide attempt with alcohol and Ativan. (Per H&P) 1. Acute alcohol withdrawal syndrome, POA. She continues to slowly improve. 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 2. Sepsis (secondary to MSSA pneumonia, resolved). POA. Resolved. SIRS: Heart rate 103, respiratory rate 23 on admission. Initial impression was probable aspiration pneumonia. Copious yellow phlegm with MSSA on culture. Generally stable until recurrent fevers on 09/02. Subsequently WBC now has risen to 13.2 on 09/04. MAXIMUM TEMPERATURE 38.2 on 09/03/16, fevers now seem to be subsiding. Her calcitonin has been surprisingly stable and not highly elevated. Chest x-ray shows progressively worsening bibasilar lower lobe infiltrate. Staphylococcal pneumonia. Blood cultures showed alpha hemolytic strep mitis from aerobic bottle on 08/27. Follow-up blood cultures were negative. Pelvic exam performed and vaginal culture no growth so far. Vancomycin started on 08/30, discontinued 08/31 as staph aureus is beta lactam sensitive. Chest CT was performed 09/04 to look for complicated pneumonic process, but was unremarkable. This is completely resolved. 3. Psychiatric disorder, acute on chronic. POA. This involves both chronic alcoholism as well as probable depression and generalized anxiety disorder. Recurrent alcohol intoxication. Possible suicide attempt. A bottle of Ativan was found at her bedside. Her mother is engaged and there may be some plan for discharge to inpatient rehabilitation on a voluntary basis as directed by her family. -Will obtain more history and gather information in the future when patient becomes more alert and awake - Psychiatry consult 1 mentally clear and following her chemical dependency evaluation. 4. Acute hypercarbic respiratory failure and intubation for airway protection. POA. Resolved. Extubated 09/02 5. Thrombocytopenia. Platelet count 142 on admission 08/26, declined to 41 on , subsequently increased to 90 on 08/31. No heparin treatment. Only on Lovenox which is now discontinued. No signs of renal failure, rash, or bleeding. Anti-PF4 antibody negative. - Resolved #. Pseudo-hypocalcemia. Ionized calcium WNL. #. HIV test negative Diet: Swallow evaluation in advance as tolerated DVT prophylaxis: lovenox scd Code Full Disposition inpatient - expect several days of further inpatient care Pain Evaluation: Adequate Pain Control VTE Prophylaxis: Sub-Q Enoxaparin VTE Mechanical Devices: Intermittant Pneumatic CD Resuscitation Status: CPR: Attempt Resuscitation Time spent 30 minutes Justino Harrison MD Sep 08, 2016 16:14
--- NOTE | 2016-09-08 16:40 | NUR ---
Chemical Dependency Evaluation KelliSaryAdelaida 09/08/2016 Reason for Admission: ETOH Intoxication, GCS 4 Precipitation Factors: Pt is a 41 year old female who arrived to [facility] via EMS after being found, unresponsive in the back of a taxi cab. Pt was found to be heavily intoxicated and not protecting her airway resulting in approximately 10 days of mechanical ventilation. ORACLE EBS ARCHITECT met with pt at bedside to complete mental health and chemical dependency assessment. 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 Pt states that her recent use was not an intentional suicide attempt however expressed feelings of "hopelessness" and "self-sabotage" after learning that her sister would be visiting her in the near future. Current Mental Status: Pt is alert and oriented x4. Pt is cooperative with assessment and receptive to ORACLE EBS ARCHITECT assessment and discussion of services. Pt is dressed in hospital gown with appropriate level of hygiene for a patient who has been admitted to the hospital for two weeks. Pt has good eye contact and speaks with a very hoarse and quiet voice due to recent intubation. Pt expresses embarrassment over current situation but also very "grateful for the care I am receiving and my family's support." Pt's affect is consistent with this report. Pt has very good insight into her current drinking pattens. At this point in time, pt's judgement is good. Pt denies any current suicidal or homicidal ideation and denies auditory/visual hallucinations. History of Substance Use: Pt states that she has been drinking since she was a teenager. Pt did not specify a preference of alcohol but reports consuming "as much as I can." Pt states she has completed 8 different inpatient treatment programs across the including [place], [place], [place] and [place]. Pt's most recent treatment program was at [facility] in Monday, in which she completed 28 days. Pt reports having "several months" of sobriety before becoming overwhelmed and "decided to go out and drink." Pt states she knew that if she started drinking she wouldn't stop. She reports that this is pattern behavior for her to do well with sobriety for a period of time, get overwhelmed and "self-sabotage myself by drinking." MH History: Pt reports a history of depression and anxiety which she was participating in counseling for in tandem with her chemical dependency counseling. Pt denies any inpatient psychiatric hospitalizations. Family History: Pt denies any family history of substance use Natural Supports: Pt's family has been very supportive to her. Her mother who lives in [place] has been at bedside and assisting her in getting into treatment. Pt's sister, father and co-worker/counselor at [facility] have also been very supportive in assisting the pt as she contemplates what she wishes to do at time of discharge. Perceptions of Use/Motivation to Change: Pt has very good insight into her substance use patterns and behaviors. Pt is motivated to change and states that "I know that I need to do the work, I just need to figure out where I need to do it and how to make that happen." Suicide Risk Assessment: Pt denies any current suicidal ideation and states that this was not an attempt to end her life/commit suicide. Pt's comorbidities of MH and substance use increase risk for suicide. Pt's feelings of "hopelessness" are also increase her risk factor. Pt denies access to firearms. Disposition/Plan: Pt is still considering her options for treatment. Pt has Group Health insurance effective 09/07/16. ORACLE EBS ARCHITECT reviewed options for treatment and process of getting to inpatient treatment with private insurance versus state. She states that she would like to continue to work on a plan with her family but will incorporate ORACLE EBS ARCHITECT into the conversation once she had decided what she wishes to do and where she would like to go. Pt has the opportunity to return to [place] with her mother to pursue treatment there. She also has the option to remain in [place] and pursue treatment here. As pt is not endorsing any suicidal ideation and denies that this was a suicide attempt, ORACLE EBS ARCHITECT will continue to provide supportive services to the pt during admission and assist pt with any barriers that may arise once she has decided on a discharge plan. ELENO Lackey
--- NOTE | 2016-09-09 01:30 | NUR ---
Tranfer Patient was transferred to [facility] and report given to RN. Patients belongings with her in room 3010.
--- NOTE | 2016-09-09 04:11 | NUR ---
Transfer Care assumed at 0140 after receiving report from Pardeep BARROW. Patient A&Ox3; tele sinus rhythm with PVCs. Patient up to void after arrival to floor; ambulates with 1 person assist and voids without difficulty. Continue to monitor.
[2016-09-09 05:13] VITALS: BP 124/75; PULSE 68; RESP 18; O2SAT 98
[2016-09-09 08:00] VITALS: PULSE 64
[2016-09-09] MEDS: Haloperidol 5 mg/mL Inj IVPUSH SCH ×2 (08:22→20:00)
[2016-09-09] MEDS: Heparin 5,000 Unit/mL Inj SUBQ SCH ×2 (08:23→20:10)
[2016-09-09] MEDS: Methylnaltrexone 12 mg/0.6 mL Inj SUBQ SCH (08:25)
[2016-09-09] MEDS: D5 0.45% NaCl + KCl 20 mEq/L 1,000 ML IV SCH ×2 (08:27→20:00)
[2016-09-09] MEDS: Polyethylene Glycol (PEG) 17 Gm Powder PO SCH ×2 (08:28→20:01)
[2016-09-09] MEDS: Senna Leaf Extract 528 mg/15 mL Syrup PO SCH (09:20)
[2016-09-09 09:21] VITALS: BP 127/83; PULSE 81; RESP 16; O2SAT 99
--- NOTE | 2016-09-09 11:19 | NUR ---
Social Work: Brief Note SETUP TECHNICIAN met with pt at bedside. Pt tearful and talking with family. SETUP TECHNICIAN explained that the hospital cannot keep her in the hospital until a bed is available, pt states understanding. Pt states they do not yet have a plan. SETUP TECHNICIAN encouraged pt and family to come up with a plan that is safe and supportive for pt while waiting for a bed and to work on what their preferences are for treatment. SETUP TECHNICIAN will return this afternoon to discuss their plan. ELENO Cotter
[2016-09-09 11:40] LABS: BASOPHILS % (AUTO) 0.6 % (0-3); EOSINOPHILS % (AUTO) 1.4 % (0-5); MONOCYTES % (AUTO) 9.5 % (4-12); Mean Corpuscular Hemoglobin 30.1 pg (27.0-35.0); Mean Corpuscular Volume 90.8 fL (81-100); NEUTROPHILS % (AUTO) 68.6 % (40-74); Platelet Count 716 bil/L (150-400)
[2016-09-09] MEDS: Multivit-Miner-Folic Acid-Iron Tablet PO SCH (12:38)
[2016-09-09 12:59] VITALS: BP 128/90; PULSE 77; RESP 16; O2SAT 100
--- NOTE | 2016-09-09 13:09 | NUR ---
IV infusion Student nurse flushed IV and Iv infiltrated. IV was removed and student nurse and nursing home social worker attempted X2 to start IV with no success. IV therapy was called to place peripheral IV.
--- NOTE | 2016-09-09 14:31 | PCM.PNMED ---
Subjective Date of Service Sep 09, 2016 Subjective This is a 41-year-old female with history of depression and multiple attempts at rehabilitation due to alcohol dependence who was admitted to [facility] on 2016 in unconscious state with alcohol level of 513 requiring intubation and airway protection. She has been extubated on 09/02/2016. Hospital day15. No acute overnight events. Telemetry: SR in 90-100's, long PVCs. Patient is calm but little tremulous today. She denies heart palpitations, chest pain, shortness of breath, diaphoresis, nausea, vomiting. Exam Vital Signs Vital Sign - Last Date Time Temp Pulse Resp B/P Pulse Ox O2 Delivery O2 Flow Rate FiO2 09/09/16 12:59 36.8 77 16 128/90 100 Room Air 09/06/16 03:06 2.00 09/05/16 23:05 96 Intake and Output 09/08/16 09/08/16 09/09/16 Cumulative From/Thru 15:00 23:00 07:00 08/26/16 13:10 - 09/09/16 06:41 Intake Total 741 ml 1000 ml 1700 ml 83891 ml Output Total 2250 ml 1100 ml 1400 ml 01268 ml Balance -1509 ml -100 ml 300 ml 1901 ml Intake Oral 1000 ml 1200 ml 6520 ml IV Total 741 ml 500 ml 02751 ml Tube Feeding 1695 ml Tube Irrigant 641 ml Output Urine Total 2250 ml 1100 ml 1400 ml 07927 ml Gastric Drainage Total 3040 ml Other 300 ml # Voids 2 2 # Bowel Movements 0 4 Exam General: Disheveled appearing, alert and oriented x3, speaks with a soft voice HEENT: sclerae anicteric, mucosa moist Neck: Supple, no adenopathy Chest: Generally clear to auscultation; no focal crackles Cardiac: S1S2, regular, no murmur Abdomen: BS present, non-rigid Extremities: No pedal edema Neuro: Grossly intact Psych: Flat affect Lab and Diagnostics Result Diagram: 09/09/16 1130 09/09/16 1130 Assessment & Plan Ms. Pereira is a 41-year-old woman who became unconscious in a cab ride and GCS was 8 who was admitted for alcohol intoxication, possible suicide attempt with alcohol and Ativan. Hospital day #15. 1. Acute alcohol withdrawal syndrome, POA. Active. Recurrent alcohol intoxication. Possible suicide attempt. A bottle of Ativan was found at her bedside. Her family is engaged and there may be some plan for discharge to inpatient rehabilitation on a voluntary basis as directed by her family. Patient denies suicidal and/or homicidal ideations. -She continues to slowly improve -Thiamine 100 mg and vitamin daily -We will repeat labs today as last labs that were drawn on 09/05/2016 2. Psychiatric disorder, acute on chronic. POA. Active. This involves both chronic alcoholism as well as probable depression and generalized anxiety disorder. -Patient has been on scheduled Haloperidol.From the previous notes, Haloperidol has been initiated on 09/01/2016. Benzodiazepine subsequently weaned, then patient has been increasingly tremulous since 09/02/2016. -We will continue Haloperidol 5 mg BID for now -Continue fluoxetine 40 mg daily -Psychiatry consult 3. Sepsis (secondary to MSSA pneumonia, resolved). POA. Resolved. SIRS: Heart rate 103, respiratory rate 23 on admission. Initial impression was probable aspiration pneumonia. Copious yellow phlegm with MSSA on culture. Generally stable until recurrent fevers on 09/02. Subsequently WBC now has risen to 13.2 on 09/04. MAXIMUM TEMPERATURE 38.2 on 09/03/16, fevers now seem to be subsiding. Her calcitonin has been surprisingly stable and not highly elevated. Chest x-ray shows progressively worsening bibasilar lower lobe infiltrate. Staphylococcal pneumonia. Blood cultures showed alpha hemolytic strep mitis from aerobic bottle on 08/27. Follow-up blood cultures were negative. Pelvic exam performed and vaginal culture no growth so far. Vancomycin started on 08/30, discontinued 08/31 as staph aureus is beta lactam sensitive. Chest CT was performed 09/04 to look for complicated pneumonic process, but was unremarkable. This is completely resolved. 4. Acute hypercarbic respiratory failure and intubation for airway protection. POA. Resolved. Extubated 09/02 5. Thrombocytopenia. POA. Resolved Platelet count 142 on admission 08/26, declined to 41 on 08/29, subsequently increased to 90 on 08/31. No signs of renal failure, rash, or bleeding. Anti- PF4 antibody negative. Disposition inpatient - possibly in 1-2 days VTE Prophylaxis: Sub-Q Heparin (Unfractionated) VTE Mechanical Devices: Intermittant Pneumatic CD Resuscitation Status: CPR: Attempt Resuscitation Attending Statement The patient was seen and examined together with Dr. Bradford on 09/09/16 and I agree with the history, exam and plan as outlined in the note above. Pat Bradford DO Sep 09, 2016 14:31 Veronica Matos DO Sep 11, 2016 14:06
[2016-09-09 15:04] LABS: Mean Corpuscular Volume 90.5 fL (81-100)
[2016-09-09 15:09] LABS: BASOPHILS % (AUTO) 0.4 % (0-3); Mean Corpuscular Hemoglobin 29.9 pg (27.0-35.0); NEUTROPHILS % (AUTO) 76.4 % (40-74); Platelet Count 648 bil/L (150-400)
--- NOTE | 2016-09-09 16:17 | NUR ---
Social Work: Brief Note Data: Pt is on day 14 of hospitalization. EMR reviewed. DIGITAL COMPUTER OPERATOR met with pt and her mother at bedside to discuss d/c plan. They state that pt's mother plans to stay with pt until a bed can be found for inpt treatment. They are calling locations that are contracted with her insurance to find a place with a bed. DIGITAL COMPUTER OPERATOR gave them the phone number for [facility] and outpt CD resources. has requested a Psych consult. DIGITAL COMPUTER OPERATOR will continue to follow. Assessment: Pt who is independent at baseline, alcohol abuse. Plan: Pt will d/c home with her mother via POV when medically stable. Psych to consult. DIGITAL COMPUTER OPERATOR will continue to follow. ELENO Cotter
[2016-09-09 17:06] VITALS: BP 112/71; PULSE 82; RESP 16; O2SAT 98
[2016-09-09 20:19] VITALS: BP 125/80; PULSE 66; RESP 16; O2SAT 99
[2016-09-10 00:22] VITALS: BP 127/81; PULSE 82; RESP 18; O2SAT 96
[2016-09-10 04:01] VITALS: BP 120/74; PULSE 67; RESP 16; O2SAT 95
[2016-09-10 05:34] VITALS: PULSE 78
[2016-09-10] MEDS: D5 0.45% NaCl + KCl 20 mEq/L 1,000 ML IV SCH ×2 (07:32→16:57)
[2016-09-10] MEDS: Polyethylene Glycol (PEG) 17 Gm Powder PO SCH ×2 (08:30→20:15)
[2016-09-10] MEDS: Senna Leaf Extract 528 mg/15 mL Syrup PO SCH (09:08)
[2016-09-10] MEDS: Multivit-Miner-Folic Acid-Iron Tablet PO SCH (09:08)
[2016-09-10] MEDS: Heparin 5,000 Unit/mL Inj SUBQ SCH (09:11)
[2016-09-10] MEDS: Haloperidol 5 mg/mL Inj IVPUSH SCH ×2 (09:11→20:15)
[2016-09-10 10:05] VITALS: PULSE 70
[2016-09-10 11:47] LABS: BASOPHILS % (AUTO) 0.7 % (0-3); EOSINOPHILS % (AUTO) 1.4 % (0-5); MONOCYTES % (AUTO) 10.4 % (4-12); Mean Corpuscular Hemoglobin 29.9 pg (27.0-35.0); Mean Corpuscular Volume 91.2 fL (81-100); NEUTROPHILS % (AUTO) 69.9 % (40-74); Platelet Count 703 bil/L (150-400)
--- NOTE | 2016-09-10 12:34 | DRSVH ---
PROCEDURE: US VENOUS ARM DUPLEX UNILATERAL, RIGHT INDICATIONS: arm pain TECHNIQUE: Real-time imaging, as well as color and pulse Doppler interrogation, was performed of the right upper extremity deep veins from the inferior neck to the antecubital fossa. COMPARISON: None. FINDINGS: Thrombus is seen within the right upper extremity mid and distal basilic vein, as well as the proximal and mid radial vein. Ulnar vein is not seen. IMPRESSION: Right upper extremity DVT. Dictated by: Amelia Guzman M.D. on 09/10/2016 at 12:27 Approved by: Amelia Guzman M.D. on 09/10/2016 at 12:28
--- NOTE | 2016-09-10 13:11 | NUR ---
Social Work: Continued d/c planning Data: Pt is on day 15 of hospitalization. EMR reviewed, pt discussed in rounds. Psych has been ordered for consult. RETREAD TECHNICIAN called Psych who states that they hope to see pt this afternoon. RETREAD TECHNICIAN met with pt and mother and provided a copy of their insurance card for them to call more inpt rehab facilities for pt's CD. RETREAD TECHNICIAN will continue to follow. Assessment: Pt who is independent at baseline, alcohol abuse. Plan: Pt will d/c home with her mother via POV. They are calling to find an inpt rehab facility for pt's CD. Psych to see this afternoon. RETREAD TECHNICIAN will continue to follow. ELENO Cotter
--- NOTE | 2016-09-10 13:29 | NUR ---
NUTRITION FOLLOW-UP: ASSESS: 41 YO F admitted with alcohol intoxication, requiring intubation in the ED related to airway protection. Pt. extubated 09/02. Diet advanced slowly, currently general diet. PO intake 85% - 100% trays consistently. No labs have been ordered. Discharge pending inpatient rehab placement. PMHx: ETOH, smoking. DIET: General. PO intake 85% - 100% trays. LABS: No labs ordered currently. MEDICATIONS: Reviewed. GI: BM x 1 (09/07) SKIN: Ryan 23, WT: 62.3 kg, BMI: 21.0 kg/m2, IBW: 61.4 kg, Admit wt: 66.6 kg RE-ESTIMATED NEEDS: Calories: 2958-2065 kcal/day (25-30 kcal/kg BW) Protein: 50-75 g/day (0.8-1.2 g/kg BW) Fluid: Approx. 1021-4322 ml/day (25-30 mL/kg Admit BW) NUTRITION DIAGNOSIS: 1) Inadequate oral intake related to inability to consume sufficient energy, as evidenced by minimal nutrition x 10 D - RESOLVED. INTERVENTION: 1) No intervention at this time. MONITOR/EVALUATE: Diet advance/tolerance, PO intake, labs, GI/nutrition status. Follow per low nutrition risk guidelines.
[2016-09-10 13:31] LABS: APPEARANCE,URINE HAZY (CLEAR,HAZY); COLOR,URINE STRAW (YELLOW)
[2016-09-10 13:32] LABS: OCCULT BLOOD,URINE TRACE (NEGATIVE); PH,URINE 6.5 (5.0-8.0)
[2016-09-10 13:33] LABS: UROBILINOGEN,URINE NORMAL (NORMAL)
--- NOTE | 2016-09-10 13:55 | NUR ---
Social Work: Brief Note DIGESTER HAND requested to see how much a medication will cost for pt. DIGESTER HAND spoke with pt who states either [facility] for [facility] as preferred pharmacy. DIGESTER HAND called [facility] and faxed over prescription requesting a call back with insurance coverage. DIGESTER HAND will continue to follow. ELENO Cotter
[2016-09-10 15:04] VITALS: BP 115/73; PULSE 77; RESP 18; O2SAT 98
--- NOTE | 2016-09-10 16:24 | PCM.PNMED ---
Subjective Date of Service Sep 10, 2016 Subjective This is a 41-year-old female with history of depression and multiple attempts at rehabilitation due to alcohol dependence who was admitted to [facility] on 2016 in unconscious state with alcohol level of 513 requiring intubation and airway protection. She has been extubated on 09/02/2016. Hospital day 16. No acute overnight events. Telemetry: SR in 90-100's, long PVCs. Patient is calm but little tremulous as usual. She denies heart palpitations, chest pain, shortness of breath, diaphoresis, nausea, vomiting. She endorses right arm pain. Exam Vital Signs Vital Sign - Last Date Time Temp Pulse Resp B/P Pulse Ox O2 Delivery O2 Flow Rate FiO2 09/10/16 15:04 36.7 77 18 115/73 98 Room Air 09/06/16 03:06 2.00 09/05/16 23:05 96 Intake and Output 09/09/16 09/09/16 09/10/16 Cumulative From/Thru 15:00 23:00 07:00 08/26/16 13:10 - 09/10/16 06:07 Intake Total 2201 ml 1503 ml 01317 ml Output Total 1200 ml 2000 ml 77337 ml Balance 1001 ml -497 ml 2405 ml Intake Oral 911 ml 400 ml 7831 ml IV Total 1290 ml 1103 ml 50044 ml Tube Feeding 1695 ml Tube Irrigant 641 ml Output Urine Total 1200 ml 2000 ml 32364 ml Gastric Drainage Total 3040 ml Other 300 ml # Voids 2 4 # Bowel Movements 0 0 4 Exam General: Disheveled appearing, alert and oriented x3, speaks with a soft voice HEENT: sclerae anicteric, mucosa moist Neck: Supple, no adenopathy Chest: Generally clear to auscultation; no focal crackles Cardiac: S1S2, regular, no murmur Abdomen: BS present, non-rigid Extremities: No pedal edema, right arm with mild swelling, tender to palpation Neuro: Grossly intact Psych: Flat affect Lab and Diagnostics Result Diagram: 09/10/16 1135 09/09/16 1455 X-Rays, CTs and MRIs PROCEDURE: US VENOUS ARM DUPLEX UNILATERAL, RIGHT INDICATIONS: arm pain FINDINGS: Thrombus is seen within the right upper extremity mid and distal basilic vein, as well as the proximal and mid radial vein. Ulnar vein is not seen. IMPRESSION: Right upper extremity DVT. Dictated by: Amelia Guzman M.D. on 09/10/2016 at 12:27 Approved by: Amelia Guzman M.D. on 09/10/2016 at 12:28 Assessment & Plan Ms. Pereira is a 41-year-old woman who became unconscious in a cab ride and GCS was 8 who was admitted for alcohol intoxication, possible suicide attempt with alcohol and Ativan. Hospital day #16. 1. Acute alcohol withdrawal syndrome, POA. Active. Recurrent alcohol intoxication. Possible suicide attempt. A bottle of Ativan was found at her bedside. Her family is engaged and there may be some plan for discharge to inpatient rehabilitation on a voluntary basis as directed by her family. Patient denies suicidal and/or homicidal ideations. -She continues to slowly improve -Thiamine 100 mg and vitamin daily -Labs within normal limits, except elevated platelets, for which outpatient follow up with Heme/Onc recommended. 2. Psychiatric disorder, acute on chronic. POA. Active. This involves both chronic alcoholism as well as probable depression and generalized anxiety disorder. -Patient has been on scheduled Haloperidol.From the previous notes, Haloperidol has been initiated on 09/01/2016. Benzodiazepine subsequently weaned, then patient has been increasingly tremulous since 09/02/2016. -We will continue Haloperidol 5 mg BID for now -Continue fluoxetine 40 mg daily -Psychiatry consult, will see the patient tomorrow 3. Right arm DVT, not present on admission, active -Right arm DVT on US duplex -Start Lovenox dosing per pharmacy -Patient may be discharged home on Lovenox if her insurance does not cover Xeralto or eliquis 4. Sepsis (secondary to MSSA pneumonia, resolved). POA. Resolved. SIRS: Heart rate 103, respiratory rate 23 on admission. Initial impression was probable aspiration pneumonia. Copious yellow phlegm with MSSA on culture. Generally stable until recurrent fevers on 09/02. Subsequently WBC now has risen to 13.2 on 09/04. MAXIMUM TEMPERATURE 38.2 on 09/03/16, fevers now seem to be subsiding. Her calcitonin has been surprisingly stable and not highly elevated. Chest x-ray shows progressively worsening bibasilar lower lobe infiltrate. Staphylococcal pneumonia. Blood cultures showed alpha hemolytic strep mitis from aerobic bottle on 08/27. Follow-up blood cultures were negative. Pelvic exam performed and vaginal culture no growth. Vancomycin started on 08/30, discontinued 08/31 as staph aureus is beta lactam sensitive. Chest CT was performed 09/04 to look for complicated pneumonic process, but was unremarkable. This is completely resolved. 5. Acute hypercarbic respiratory failure and intubation for airway protection. POA. Resolved. Extubated 09/02 6. Thrombocytopenia. POA. Resolved Platelet count 142 on admission 08/26, declined to 41 on 08/29, subsequently increased to 90 on 08/31. No signs of renal failure, rash, or bleeding. Anti- PF4 antibody negative. Disposition inpatient - possibly in 1-2 days. Patient will stay with her mother at [facility] until they find a bed at inpatient rehab facility. VTE Prophylaxis: Sub-Q Enoxaparin, Other VTE Mechanical Devices: Intermittant Pneumatic CD Resuscitation Status: CPR: Attempt Resuscitation Attending Statement The patient was seen and examined together with Dr. Bradford on 09/10/16 and I have added additional information to the note above. Pat Bradford DO Sep 10, 2016 16:24 Veronica Matos DO Sep 11, 2016 14:10
--- NOTE | 2016-09-10 18:30 | NUR ---
Activity/behavior Pt up to BSC ind, tolerating activity well. She remains on RA, denies any SOB/discomfort. Pt very soft-spoken this shift. Mother at bedside and asking frequent questions. Bed in lowest, locked position and call light in reach.
--- NOTE | 2016-09-10 20:00 | NUR ---
Docusate 100mg return to pharmacy Docusate 200mg taken out from [facility], but pt refuses it. [facility] only alllows me to return 100mg (I don't know why), Pharmacy [facility] called, Docusate 100mg put in the bin of med room and returned to pharmacy per pharmacy instruction.
[2016-09-10 20:41] VITALS: BP 117/55; PULSE 71; RESP 16; O2SAT 97
[2016-09-11] MEDS: D5 0.45% NaCl + KCl 20 mEq/L 1,000 ML IV SCH ×2 (02:54→11:33)
[2016-09-11 05:14] VITALS: BP 119/74; PULSE 59; RESP 18; O2SAT 98
[2016-09-11 06:03] VITALS: PULSE 74
[2016-09-11 06:17] LABS: BASOPHILS % (AUTO) 0.7 % (0-3); EOSINOPHILS % (AUTO) 1.6 % (0-5); MONOCYTES % (AUTO) 10.4 % (4-12); Mean Corpuscular Hemoglobin 29.5 pg (27.0-35.0); Mean Corpuscular Volume 90.4 fL (81-100); NEUTROPHILS % (AUTO) 75.1 % (40-74); Platelet Count 630 bil/L (150-400)
--- NOTE | 2016-09-11 06:46 | NUR ---
Haldol/Neuro Pt A&Ox3, appears anxious, hand tremor, unable to sleep. Night resident Rajendra salas, Order: hold Haldol (due to prolonged QTc 482 on 09/02/2016),recheck EKG [id number], Tele placed back on and Ativan given per order. Pt denies ETOH withdrawal symptoms:hallucination,headache,numbness,tingling or N/V/sweating. Not on CIWA currently.
[2016-09-11] MEDS: Polyethylene Glycol (PEG) 17 Gm Powder PO SCH (08:30)
[2016-09-11] MEDS: Methylnaltrexone 12 mg/0.6 mL Inj SUBQ SCH (08:30)
[2016-09-11] MEDS: Senna Leaf Extract 528 mg/15 mL Syrup PO SCH (09:27)
[2016-09-11] MEDS: Multivit-Miner-Folic Acid-Iron Tablet PO SCH (09:27)
--- NOTE | 2016-09-11 09:42 | NUR ---
IV Pt's IV leaking and causing discomfort when flushing. Spoke with MD who does NOT want another IV placed. IV Haldol to be changed to PO Haldol per MD.
[2016-09-11] MEDS: Haloperidol 5 mg/mL Inj IVPUSH SCH (09:51)
[2016-09-11 10:07] VITALS: PULSE 73
[2016-09-11 14:05] VITALS: BP 130/89; PULSE 80; RESP 18; O2SAT 98
--- NOTE | 2016-09-11 16:20 | NUR ---
Social Work: Discharge Data: Pt is on day 16 of hospitalization. EMR reviewed. DETAIL ASSEMBLER faxed further prescription options to run for pt's insurance benefit to [employer] in [place], [place]. DETAIL ASSEMBLER notified MD to costs. Psych met with pt and has cleared pt for d/c. No further d/c planning needs at this time. DETAIL ASSEMBLER will continue to follow if needs arise. Assessment: Pt who is independent at baseline. Plan: Pt will d/c home with her mother and they are working on setting up outpt treatment for pt for CD. No further d/c planning needs at this time. DETAIL ASSEMBLER will continue to follow if needs arise. ELENO Cotter
--- NOTE | 2016-09-11 16:38 | PCM.DIMED ---
Discharge Instructions Date of Service Sep 11, 2016 Dates of Hospitalization Aug 26, 2016 at 14:44 Discharge Diagnosis Discharge Diagnosis Acute alcohol withdrawal syndrome Psychiatric disorder depression and generalized anxiety Right arm DVT Sepsis secondary to MSSA pneumonia (resolved) Acute hypercarbic respiratory failure and intubation Thrombocytopenia Medication Instructions Please take all medications as prescribed. Please do not take extra or change any doses. He will be prescribed Valium for the next 5 days please take 1 pill per day only at the time that you have the highest anxiety. Test Results CBC Test 09/11/16 05:15 White Blood Count 8.1th/mm3 (3.8-10.1) Red Blood Count 3.76mil/mm3 (3.90-5.20) Hemoglobin 11.1g/dL (12.0-15.6) Hematocrit 34.0% (35.0-46.0) Mean Corpuscular Volume 90.4fL (81-100) Mean Corpuscular Hemoglobin 29.5pg (27.0-35.0) Mean Corpuscular Hemoglobin Concent 32.6% (32.0-37.0) Red Cell Distribution Width 14.7% (12.3-15.4) Platelet Count 630bil/L (150-400) Neutrophils (%) (Auto) 75.1% (40-74) Lymphocytes (%) (Auto) 11.7% (14-46) Monocytes (%) (Auto) 10.4% (4-12) Eosinophils (%) (Auto) 1.6% (0-5) Basophils (%) (Auto) 0.7% (0-3) Diet No restrictions Activity No restrictions, Other (inpatient alcohol rehabilitation is advised) Call your provider Fever or Chills, Shortness of breath, Bleeding, Chest pain, Vomitting, Excessive diarrhea, Weakness (unilateral) Patient Instructions Please follow-up with your primary care physician in the next 1-2 days. Please follow-up and have a CBC performed in order to monitor your platelets as they were elevated during her hospital stay. They are currently trending down as there were 703 and today they are 630 as long as they continue to trend down then no further appointments are necessary however if they increase or do not decrease then it is recommended that she follow up with hematology. Follow-up plan Follow-up with your PCP in the next 1-2 days Follow-up Tests: Repeat platelet levels this test should be done with your PCP Enroll in inpatient alcohol rehabilitation Become involved in a group or something to help her self-esteem and social skills to prevent alcoholic relapse Follow-up with PCP in: 1 week (if an appointment has not been made and please call to make an appointment) Veronica Matos DO Sep 11, 2016 16:38
[2016-09-11] MEDS ORDERED: DIPH25CA6 PO (16:45)
[2016-09-11] MEDS ORDERED: BUSP15TA3 PO (16:45)
[2016-09-11] MEDS ORDERED: PREN1TAB25 PO (16:45)
[2016-09-11] MEDS ORDERED: DIAZ10TA PO (16:45)
[2016-09-11] MEDS ORDERED: Thiamine PO (16:45)
[2016-09-11] MEDS ORDERED: FLUO20CA25 PO (16:45)
[2016-09-11] MEDS ORDERED: LOV60 SUBQ (16:45)
--- NOTE | 2016-09-11 16:56 | PCM.DC.MED ---
Discharge Summary Date of Service Sep 11, 2016 Dates of Hospitalization Date of Hospital Admission Aug 26, 2016 at 14:44 Date of Discharge: Sep 11, 2016 Providers: Admitting Physician: Mason Kessler MD Primary Care Physician: Deborah Attending Physician: Mason Kessler MD Diagnosis at Time of Discharge Diagnosis at Time of Discharge Acute alcohol withdrawal syndrome Psychiatric disorder depression and generalized anxiety Right arm DVT Sepsis secondary to MSSA pneumonia (resolved) Acute hypercarbic respiratory failure and intubation Thrombocytopenia Consultations Psychiatry Dr. Askew Procedures XRay, CTs & MRIs PROCEDURE: US VENOUS ARM DUPLEX UNILATERAL, RIGHT INDICATIONS: arm pain FINDINGS: Thrombus is seen within the right upper extremity mid and distal basilic vein, as well as the proximal and mid radial vein. Ulnar vein is not seen. IMPRESSION: Right upper extremity DVT. Dictated by: Amelia Guzman M.D. on 09/10/2016 at 12:27 Approved by: Amelia Guzman M.D. on 09/10/2016 at 12:28 Other Diagnostics PROCEDURE: US VENOUS ARM DUPLEX UNILATERAL, RIGHT INDICATIONS: arm pain TECHNIQUE: Real-time imaging, as well as color and pulse Doppler interrogation, was performed of the right upper extremity deep veins from the inferior neck to the antecubital fossa. COMPARISON: None. FINDINGS: Thrombus is seen within the right upper extremity mid and distal basilic vein, as well as the proximal and mid radial vein. Ulnar vein is not seen. IMPRESSION: Right upper extremity DVT. Brief History ICU/pulmonary consult note 41-year-old female with unknown medical history with recent stay at [facility] and reported multiple and numerous attempt at rehabilitation due to alcohol was brought to schedule a hospital ED by EMS due to being unresponsive in the back of a taxicab. He pulled up to a police station after patient was unresponsive and called EMS. Medics arrived some unknown time later. Does not appear that CPR was ever needed as patient was breathing and had a pulse. Patient apparently smelled strongly of alcohol and there were lorazepam pills in the back seat. EMS administered 0.5 mg of Narcan with no change. Patient was minimally responsive for EMS with minimal responses to deep pain stimulation. Patient arrived to [facility] ED still wearing a [facility] identification wrist band. EKG on arrival showed sinus tachycardia with rate of 100. Patient was intubated and chest x-ray confirmed the placement of the endotracheal tube. On admit the patient's blood alcohol level was 513, with a negative acetaminophen and salicylate levels. White count on arrival was 5.6 but that is since increased 12.7, hemoglobin has decreased from 13.4-11.5, and platelet count is somewhat stable at 101. Other labs are stable. Patient was in thiamine. Currently has been sedated on lorazepam and fentanyl as Versed drip and diazepam pushes were not working. This morning the patient is lightly sedated and responds to touch. Questionable fever overnight only 37.7. Blood pressure is stable and she is 99 % saturation with FiO2 of 0.4. He was related that the patient has been trying to commit suicide which led to her recent stay in [facility]. Hospital Course Ms. Pereira is a 41-year-old woman who became unconscious in a cab ride and GCS was 8 who was admitted for alcohol intoxication, possible suicide attempt with alcohol and Ativan. Hospital day #16. Patient has significant hospital course where she was intubated due to acute respiratory hypoxia. Patient was then weaned off of the ventilator and has been oxygenating well. The patient still has some effects of the alcoholism. Patient does have akathisia pretty significantly. The patient has been seen by psychiatry who recommended Prozac 30 mg daily, BuSpar 15 mg twice a day, 25 mg of Benadryl every 6 hours when necessary at these as for the next 6 days, Valium 10 mg daily for the next 5 days only during the times of greatest anxiety and stress. The patient plans to enroll in an inpatient alcohol rehabilitation program. The patient has been encouraged to also become involved in activities and other things that will help boost her self-esteem as well as increase her social network. It seems that the patient self sabotages herself when she feels that something that is about to happen and she feels that she does not deserve it. The patient is at high risk for alcoholic relapse and high risk of accidental suicide from alcoholic ingestion. The patient is currently not suicidal and has no plans to harm herself. The patient is aware that she is at high risk of relapsing. The patient does have a good social network of support with mom dad and sister. Upon discharge patient will go and live with mom and work on enrolling in an inpatient alcohol rehabilitation center. The plan is for the patient to relocate to [place] with her mother once she is stable. Patient is being discharged with a 30 day supply of Lovenox 60 mg twice a day for the DVT and will need refills to treat appropriately for the next 6 months. The patient is also being discharged home with a 30 day supply of Prozac 30 daily, a 30 day supply of BuSpar 15 mg twice a day. Patient is also being prescribed a vitamin daily and thiamine 100 mg daily for her alcoholism. Patient will need refills on these medications. Patient is being discharged home with her mother in stable condition. 1. Acute alcohol withdrawal syndrome, POA. Active. Recurrent alcohol intoxication. Possible suicide attempt. A bottle of Ativan was found at her bedside. Her family is engaged and there may be some plan for discharge to inpatient rehabilitation on a voluntary basis as directed by her family. Patient denies suicidal and/or homicidal ideations. -She continues to slowly improve -Thiamine 100 mg and vitamin daily -Labs within normal limits, except elevated platelets, for which outpatient follow up with Heme/Onc recommended. 2. Psychiatric disorder, acute on chronic. POA. Active. This involves both chronic alcoholism as well as probable depression and generalized anxiety disorder. -Patient has been on scheduled Haloperidol.From the previous notes, Haloperidol has been initiated on 09/01/2016. Benzodiazepine subsequently weaned, then patient has been increasingly tremulous since 09/02/2016. -We will continue Haloperidol 5 mg BID for now -Continue fluoxetine 40 mg daily -Psychiatry consult, will see the patient tomorrow 3. Right arm DVT, not present on admission, active -Right arm DVT on US duplex -Start Lovenox dosing per pharmacy -Patient may be discharged home on Lovenox if her insurance does not cover Xeralto or eliquis 4. Sepsis (secondary to MSSA pneumonia, resolved). POA. Resolved. SIRS: Heart rate 103, respiratory rate 23 on admission. Initial impression was probable aspiration pneumonia. Copious yellow phlegm with MSSA on culture. Generally stable until recurrent fevers on 09/02. Subsequently WBC now has risen to 13.2 on 09/04. MAXIMUM TEMPERATURE 38.2 on 09/03/16, fevers now seem to be subsiding. Her calcitonin has been surprisingly stable and not highly elevated. Chest x-ray shows progressively worsening bibasilar lower lobe infiltrate. Staphylococcal pneumonia. Blood cultures showed alpha hemolytic strep mitis from aerobic bottle on 08/27. Follow-up blood cultures were negative. Pelvic exam performed and vaginal culture no growth. Vancomycin started on 08/30, discontinued 08/31 as staph aureus is beta lactam sensitive. Chest CT was performed 09/04 to look for complicated pneumonic process, but was unremarkable. This is completely resolved. 5. Acute hypercarbic respiratory failure and intubation for airway protection. POA. Resolved. Extubated 09/02 6. Thrombocytopenia. POA. Resolved Platelet count 142 on admission 08/26, declined to 41 on 08/29, subsequently increased to 90 on 08/31. No signs of renal failure, rash, or bleeding. Anti- PF4 antibody negative. Exam Vital Signs (Last) Date Time Temp Pulse Resp B/P Pulse Ox O2 Delivery O2 Flow Rate FiO2 09/11/16 14:05 36.7 80 18 130/89 98 Room Air 09/06/16 03:06 2.00 09/05/16 23:05 96 Exam Physical Exam: GEN: Patient was awake, alert, responding appropriately to questions, mildly disheveled, talking in a low voice HEENT: PERRLA, EOMI, Neck soft supple, trachea midline, nomocephalic/atraumatic CV: +S1/S2, RRR, no murmurs auscultated Respiratory: CTAB, no wheezes, rales, rhonchi GI: +bowel sounds x4, soft, compressible, non TTP EXT: no c/c/e in the lower extremities, right upper extremity pain secondary to DVT in the antecubital fossa area, no signs of erythema Neuro: CN II-XII grossly intact Psych: mood and affect were flat, positive akathisia Test 08/26/16 13:42 08/26/16 14:50 08/26/16 15:37 08/27/16 02:45 Salicylates Level < 3.0ug/mL (30-250) Acetaminophen Level < 15.0ug/mL Rx (10-25) Alcohol, Quantitative 513mg/dL (0-10) Hold Urine Received (Received) Ammonia 27ug/dL (18-53) Vitamin B12 Level 406pg/mL (211-946) Free Thyroxine Index 1.7 (1.2-4.9) Thyroxine (T4) 5.7ug/dL (4.5-12.0) Triiodothyronine (T3) Uptake 30% (24-39) Hemoglobin A1c 5.5% (4.8-5.6) Troponin T 0.010ug/L (0.0-0.011) Test 08/28/16 03:05 08/29/16 02:20 08/29/16 10:58 09/01/16 07:15 Lactic Acid Level 1.6mmol/L (0.4-2.0) HCG Beta Subunit 0.500mIU/mL Prothrombin Time 11.0sec (8.1-12.5) Prothromb Time International Ratio 1.03ratio Activated Partial Thromboplast Time 34.5sec (22.8-33.0) Fibrinogen 545mg/dL (157-380) D-Dimer 2.4mg/L (<0.50) Ionized Calcium 1.19mmol/L (1.17-1.32) Lipase 29U/L (13-60) Hold Lopes Top Tube Received (Received) Heparin-PF4 Ab Optical Density 0.078OD (<0.4) Heparin-PF4 Antibody Interpretation Not indicated Vancomycin Level Trough 2.8mcg/mL Test 09/02/16 03:03 09/02/16 16:15 09/02/16 16:30 09/03/16 08:45 Phosphorus Level 5.0mg/dL (2.5-4.9) Hepatitis B Surface Antigen Negative (Negative) Hepatitis C Antibody 0.3s/co ratio (0.0-0.9) HIV (1&2) Ag and Ab, 4th Generation Non reactive (Non Reactive) HIV (1&2) Antibody Rapid Negative (Negative) Urine Culture Reflexed Not indicated Procalcitonin 0.08ng/mL (0.00-0.08) Test 09/09/16 14:55 09/10/16 11:48 09/11/16 05:15 Magnesium Level 1.8mg/dL (1.6-2.6) Urine Color Straw (YELLOW) Urine Appearance Hazy (CLEAR,HAZY) Urine pH 6.5 (5.0-8.0) Urine Specific [place] 1.005 (1.003-1.035) Urine Protein Negativemg/dL (NEG,TRACE) Urine Glucose (UA) Negativemg/dL (NEGATIVE) Urine Ketones Negativemg/dL (NEGATIVE) Urine Occult Blood Trace (NEGATIVE) Urine Nitrite Positive (NEGATIVE) Urine Bilirubin Negative (NEGATIVE) Urine Urobilinogen Normalmg/dL (NORMAL) Urine Leukocyte Esterase Moderate (NEGATIVE) Urine RBC 0-2/hpf (0-2) Urine WBC 6-10/hpf (0-5) Urine Epithelial Cells Occasional/hpf (NONE-MOD) Urine Crystals None seen (NONE SEEN) Urine Bacteria Many/hpf (NONE-FEW) Urine Hyaline Casts None/lpf (NONE) Urine Granular Casts None seen (NONE SEEN) Urine Waxy Casts None seen (NONE SEEN) Urine Red Blood Cell Casts None seen (NONE SEEN) Urine White Blood Cell Casts None seen (NONE SEEN) Urine Mucus None seen (None Seen) Urine Trichomonas None seen (NONE SEEN) Urine Yeast None (NONE SEEN) Urinalysis Comment None White Blood Count 8.1th/mm3 (3.8-10.1) Red Blood Count 3.76mil/mm3 (3.90-5.20) Hemoglobin 11.1g/dL (12.0-15.6) Hematocrit 34.0% (35.0-46.0) Mean Corpuscular Volume 90.4fL (81-100) Mean Corpuscular Hemoglobin 29.5pg (27.0-35.0) Mean Corpuscular Hemoglobin Concent 32.6% (32.0-37.0) Red Cell Distribution Width 14.7% (12.3-15.4) Platelet Count 630bil/L (150-400) Neutrophils (%) (Auto) 75.1% (40-74) Lymphocytes (%) (Auto) 11.7% (14-46) Monocytes (%) (Auto) 10.4% (4-12) Eosinophils (%) (Auto) 1.6% (0-5) Basophils (%) (Auto) 0.7% (0-3) Sodium Level 136mEq/L (134-144) Potassium Level 4.0mEq/L (3.5-5.2) Chloride Level 100mEq/L (97-108) Carbon Dioxide Level 20mmol/L (18-29) Blood Urea Nitrogen 7mg/dL (6-24) Creatinine 0.52mg/dL (0.57-1.00) Estimat Glomerular Filtration Rate 184mL/min (>59) Glucose Level 104mg/dL (60-99) Calcium Level 9.2mg/dL (8.5-10.1) Total Bilirubin 0.2mg/dL (0.0-1.2) Aspartate Amino Transf (AST/SGOT) 16U/L (0-50) Alanine Aminotransferase (ALT/SGPT) 13U/L (0-32) Alkaline Phosphatase 43U/L (25-150) Total Protein 6.6g/dL (6.4-8.4) Albumin 3.4g/dL (3.4-5.0) Microbiology Results Laboratory Tests Test 09/11/16 05:15 White Blood Count 8.1th/mm3 (3.8-10.1) Red Blood Count 3.76mil/mm3 (3.90-5.20) Hemoglobin 11.1g/dL (12.0-15.6) Hematocrit 34.0% (35.0-46.0) Mean Corpuscular Volume 90.4fL (81-100) Mean Corpuscular Hemoglobin 29.5pg (27.0-35.0) Mean Corpuscular Hemoglobin Concent 32.6% (32.0-37.0) Red Cell Distribution Width 14.7% (12.3-15.4) Platelet Count 630bil/L (150-400) Neutrophils (%) (Auto) 75.1% (40-74) Lymphocytes (%) (Auto) 11.7% (14-46) Monocytes (%) (Auto) 10.4% (4-12) Eosinophils (%) (Auto) 1.6% (0-5) Basophils (%) (Auto) 0.7% (0-3) Sodium Level 136mEq/L (134-144) Potassium Level 4.0mEq/L (3.5-5.2) Chloride Level 100mEq/L (97-108) Carbon Dioxide Level 20mmol/L (18-29) Blood Urea Nitrogen 7mg/dL (6-24) Creatinine 0.52mg/dL (0.57-1.00) Estimat Glomerular Filtration Rate 184mL/min (>59) Glucose Level 104mg/dL (60-99) Calcium Level 9.2mg/dL (8.5-10.1) Total Bilirubin 0.2mg/dL (0.0-1.2) Aspartate Amino Transf (AST/SGOT) 16U/L (0-50) Alanine Aminotransferase (ALT/SGPT) 13U/L (0-32) Alkaline Phosphatase 43U/L (25-150) Total Protein 6.6g/dL (6.4-8.4) Albumin 3.4g/dL (3.4-5.0) Microbiology 09/02/16 Blood Culture - Final, Complete NO GROWTH AFTER 5 DAYS 09/04/16 Stool Occult Blood (NENO) - Final, Complete 08/29/16 Neisseria gonorrhoeae Culture - Final, Complete No Niesseria gonorrhoeae isolated 08/29/16 Gram Stain - Final, Resulted 08/29/16 Upper Respiratory Culture - Final, Resulted Staphylococcus Aureus 08/29/16 Fungal Culture - Preliminary, Resulted No fungus isolated to date. Discharge Medications Discharge Medications ([Thiamine]) 100 MG TABLET 100 MG PO DAILY Prescribed by: VERONICA MATOS DO Buspirone (Buspirone) 15 Mg Tablet 15 MG PO BID Prescribed by: VERONICA MATOS DO Enoxaparin (Lovenox) 60 Mg/0.6 Ml Syringe 60 MG SUBQ Q12H Prescribed by: VERONICA MATOS DO Fluoxetine (Fluoxetine) 40 Mg Capsule 40 MG PO DAILY (Reported) Fluoxetine (Fluoxetine) 20 Mg Capsule 30 MG PO DAILY Prescribed by: VERONICA MATOS DO Vit#96/Ferrous Fum/FA ( Tablet) 1 Each Tablet 1 TABLET PO DAILY Prescribed by: VERONICA MATOS DO Trazodone (Trazodone) 100 Mg Tablet 100 MG PO HS (Reported) Valacyclovir (Valacyclovir) 500 Mg Tablet 500 MG PO DAILY (Reported) As needed Diazepam (Valium) 10 Mg Tablet 10 MG PO DAILY PRN PRN For Anxiety Prescribed by: VERONICA MATOS DO diphenhydrAMINE HCl (Benadryl) 25 Mg Capsule 25 MG PO q6 PRN PRN shaking Prescribed by: VERONICA MATOS DO Additional med instructions Please take all medications as prescribed. Please do not take extra or change any doses. He will be prescribed Valium for the next 5 days please take 1 pill per day only at the time that you have the highest anxiety. Followup Plan Disposition: Discharge home with mother in stable condition Follow-up plan Follow-up with your PCP in the next 1-2 days Follow-up Tests: Repeat platelet levels this test should be done with your PCP Enroll in inpatient alcohol rehabilitation Become involved in a group or something to help her self-esteem and social skills to prevent alcoholic relapse Discharge Diet: No restrictions Discharge Activity: No restrictions, Other (inpatient alcohol rehabilitation is advised) Patient Instructions Please follow-up with your primary care physician in the next 1-2 days. Please follow-up and have a CBC performed in order to monitor your platelets as they were elevated during her hospital stay. They are currently trending down as there were 703 and today they are 630 as long as they continue to trend down then no further appointments are necessary however if they increase or do not decrease then it is recommended that she follow up with hematology. Follow-up with PCP in: 1 week (if an appointment has not been made and please call to make an appointment) Time spent Greater than 35 minutes Veronica Matos DO Sep 11, 2016 16:56
--- NOTE | 2016-09-11 17:05 | CONS ---
[address] [address] CONSULTATION REPORT PATIENT: AMELIE SINGH : 1975 MR#: [id number] ADMIT: 08/26/2016 JOB ID: [id number] DATE OF SERVICE: 09/11/2016 IDENTIFICATION: The patient is a 41-year-old female with a history of depression and severe alcohol dependence. Reason REASON FOR ADMISSION: Client admitted to [facility], August 26, 2016, in an unconscious state with an alcohol level of 513, requiring intubation. HISTORY OF PRESENT ILLNESS: I was asked to consult for medication recommendations for the patient. She was admitted for acute alcohol intoxication. I met with her for a 30-minute evaluation and reviewed course and records kept by [facility]. Client's main issue is alcohol abuse. Co-occurring issues are depression. The condition is chronic. It has been present over the past 15 years. At present, it is of a severe intensity, manifesting with symptoms of being unable to stop drinking. She is currently showing no signs of emotional lability or impairment in judgment, reality testing, insight or coping. She was asking questions in terms of helpful treatment after discharge from the hospital. MENTAL STATUS EXAMINATION: Client neatly dressed, calm, pleasant. She appeared restless and was somewhat tremulous in bed. She had good eye contact and was cooperative and pleasant. Mood was dysphoric. Affect congruent but with no emotional liability and normal intensity. Thought process logical and goal oriented. Thought content significant for future planning, how to take care of her needs. She is hoping to stop drinking and re-engage in a 12-step program. Denied suicidal ideation, plan, or intent. Denied psychotic symptoms. Alert and oriented to person, place, and date. Immediate, short-, and long-term memory mildly impaired. Attention and concentration mildly impaired. Insight and judgment appropriate. Impulse control highly contained yet has a difficult time handling impulses of cravings for alcohol. Reality testing intact. Competence to handle current stressors appears to be baseline. IMPRESSION: The patient is a 41-year-old, white female, who has rather severe alcohol dependence problem. She has been to eight different 30-day treatment programs and continues to relapse. When she drinks, she drinks to blackouts. She has been medically cleared from detox and is ready to go today. She is on Prozac 40 daily and has been on Haldol 2 mg three times a day. I reviewed with her relative risks, benefits and side effects of starting a combination of Valium, Prozac, and Benadryl. She appeared to understand the relative risks from the relative benefits. DISCHARGE DIAGNOSIS: [place] I. 1. Substance-induced mood disorder. 2. Alcohol abuse and dependence. [place] II. Unknown. [place] III. Recent intubation for alcohol intoxication. [place] IV. Severe. [place] V. Current Global Assessment of Functioning equal to 45. PLAN: Recommend client attend 90 AA meetings in 90 days after discharge. Would recommend decreasing Prozac to 30 mg per day to minimize akathisia, starting BuSpar 15 mg b.i.d. and Benadryl 25 mg q.6 h. as needed for akathisia. Would also start patient on Valium 10 mg per day for the next five days. On average patients with this level of substance abuse require five inpatient treatment programs before they are able to maintain sobriety. She has a more severe case and may need nine or 10 inpatient treatments. In the meantime, before she can qualify for the next inpatient program, would recommend 90 AA meetings in 90 days. Thank you for a very interesting consult.
--- NOTE | 2016-09-11 17:23 | NUR ---
DISCHARGE Pt discharged home at 1720, ambulated off unit accompanied by her mother and this RN. Vital signs stable, A&Ox4, denies pain and in no apparent distress. IV dc'd intact, all belongings returned. All instructions for diet, activity, medications, prescriptions and follow up reviewed with patient and mother who report understanding. Extensive teaching done with pt and mother for Lovenox. Lovenox instruction kit obtained from pharmacy and discussed with pt, sent home with her.
== END 2016-09-11 17:22 | disposition home or self-care (01) | DRG 775 ==
LOC: SED 12:57 → CCU 14:44 → PCC 09-05 08:59 → MPC 09-09 01:39
PROVIDERS: ADMIT Urology; ATTEND Urology
PROC: 0BH17EZ Insertion of Endotracheal Airway into Trachea, Via Natural or Artificial Opening (ICD-10-PCS; principal; 2016-08-26)
PROC: 5A1955Z Respiratory Ventilation, Greater than 96 Consecutive Hours (ICD-10-PCS; 2016-08-26)
PROC: 4A033R1 Measurement of Arterial Saturation, Peripheral, Percutaneous Approach (ICD-10-PCS; 2016-08-27)
DX: F10.239 Alcohol dependence with withdrawal, unspecified (principal); R40.2322 Coma scale, best motor response, extension, at arrival to emergency department; A41.01 Sepsis due to Methicillin susceptible Staphylococcus aureus; J96.02 Acute respiratory failure with hypercapnia; J69.0 Pneumonitis due to inhalation of food and vomit; R40.2112 Coma scale, eyes open, never, at arrival to emergency department; R40.2212 Coma scale, best verbal response, none, at arrival to emergency department; K56.7 Ileus, unspecified; E87.1 Hypo-osmolality and hyponatremia; I82.621 Acute embolism and thrombosis of deep veins of right upper extremity; F10.24 Alcohol dependence with alcohol-induced mood disorder; T42.4X2A Poisoning by benzodiazepines, intentional self-harm, initial encounter; F10.229 Alcohol dependence with intoxication, unspecified; Y90.8 Blood alcohol level of 240 mg/100 ml or more; T51.0X2A Toxic effect of ethanol, intentional self-harm, initial encounter; E87.6 Hypokalemia; E83.42 Hypomagnesemia; D69.6 Thrombocytopenia, unspecified